=== PATIENT | female | born 1990 | race Hispanic/Latino ===

== ENCOUNTER 2019-05-09 07:50 | Emergency (ER) | payer OTHER, SELFPAY ==
[2019-05-09] MEDS ORDERED: MEPERIDINE HCL 25 MG/0.5 ML ONE (08:18)
[2019-05-09] MEDS ORDERED: ONDANSETRON 4 MG/2 ML VIAL ONE (08:18)
[2019-05-09] MEDS ORDERED: MAGNE/ALUM HYDROXD 30 ML UCUP ONE (08:18)
[2019-05-09] MEDS ORDERED: LIDOCAINE VISCOUS 2% SOLN 15 ML UDC ONE (08:19)
[2019-05-09 08:38] LABS: Absolute Lymphocytes (CBC) 2.5 K/uL (0.7-4.9); Basophils % 0.2 % (0-1.3); Hematocrit 37.4 % (36.0-45.0); Lymphocytes % 32.9 % (15.3-44.8); MPV 9.5 fL (7.6-11.3)
[2019-05-09 08:50] LABS: ALT/SGPT 26 U/L (12-78); AST/SGOT 14 U/L (15-37); Albumin 3.7 g/dL (3.4-5.0); Alkaline Phosphatase 74 U/L (45-117); BUN Blood Urea Nitrogen 12 mg/dL (7-18); Bicarbonate 23 mmol/L (21-32); Bilirubin Direct < 0.1 mg/dL (0-0.2); Bilirubin Total 0.4 mg/dL (0.2-1.0); Glucose Level 84 mg/dL (74-106); Lipase 118 U/L (73-393); Potassium 4.2 mmol/L (3.5-5.1); Protein, Total 7.9 g/dL (6.4-8.2); Sodium Level 138 mmol/L (136-145)
[2019-05-09 08:56] LABS: Urine RBC <5 /HPF (NONE SEEN)
[2019-05-09 08:57] LABS: Urine Bacteria <20 /HPF (<20); Urine Culture Reflex Order REFLEXED; Urine Mucus 2+ /HPF (NONE SEEN)
--- NOTE | 2019-05-09 09:11 | RAD REPORT ---
EXAM DESCRIPTION: US - Abdomen Exam Limited - 05/09/2019 8:41 am CLINICAL HISTORY: Abdominal pain. COMPARISON: None. FINDINGS: The gallbladder wall is not thickened. A gallstone is not seen. The biliary tree is normal caliber. Fatty liver IMPRESSION: Unremarkable gallbladder ultrasound. Fatty liver
[2019-05-09 09:56] LABS: Urine Blood TRACE (NEG); Urine Glucose NEGATIVE (NEG); Urine Protein NEGATIVE (NEG); Urine pH 5.5 (5.0-7.0)
--- NOTE | 2019-05-09 10:06 | EDPHYS ---
Physician Documentation [facility] Name: Sarahy Salinas Age: 29 yrs Sex: Female : 1990 Arrival Date: 05/09/2019 Time: 07:51 Bed 19 Private MD: ED Physician Rick Hall HPI: 05/09 08:16 This 29 yrs old Female presents to ER via Ambulatory with complaints of Pain rn All Over. 08:16 The patient presents with abdominal pain in the epigastric area, in the right upper rn quadrant. Onset: The symptoms/episode began/occurred yesterday. The symptoms radiate to the right flank. Associated signs and symptoms: Pertinent positives: nausea, Pertinent negatives: blood in stools, chest pain, constipation, fever, shortness of breath, vaginal discharge. The symptoms are described as achy, crampy, sharp. Modifying factors: The symptoms are alleviated by nothing, the symptoms are aggravated by touching the area. Severity of pain: At its worst the pain was mild in the emergency department the pain is unchanged. The patient has experienced similar episodes in the past. The patient has not recently seen a physician. Reports pain for several months, + upper abd pain and right flank pain, assoc with nausea, worse since yesterday, no fever, no diarrhea/constipation, no trauma. NO urinary symptoms.. 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 - Social history:: Smoking status: Patient/guardian denies using tobacco. - Ebola Screening: : No symptoms or risks identified at this time. - Family history:: not pertinent. - Hospitalizations: : No recent hospitalization is reported. ROS: 08:16 Constitutional: Negative for fever, chills, and weight loss, Eyes: Negative for injury, rn pain, redness, and discharge, Neck: Negative for injury, pain, and swelling, Cardiovascular: Negative for chest pain, palpitations, and edema, Respiratory: Negative for shortness of breath, cough, wheezing, and pleuritic chest pain, Abdomen/GI: + abd pain, nausea Back: Negative for injury MS/Extremity: Negative for injury and deformity, Skin: Negative for injury, rash, and discoloration, Neuro: Negative for headache, weakness, numbness, tingling, and seizure. Exam: 08:16 Constitutional: This is a well developed, well nourished patient who is awake, alert, rn and in no acute distress. Head/Face: Normocephalic, atraumatic. Eyes: Pupils equal round and reactive to light, extra-ocular motions intact. Lids and lashes normal. Conjunctiva and sclera are non-icteric and not injected. Cornea within normal limits. Periorbital areas with no swelling, redness, or edema. ENT: MMM Cardiovascular: Regular rate and rhythm. No pulse deficits. Respiratory: Lungs have equal breath sounds bilaterally, clear to auscultation. No increased work of breathing, no retractions or nasal flaring. Abdomen/GI: Soft, + RUQ and epigastric tenderness Back: No spinal tenderness. No costovertebral tenderness. Full range of motion. MS/ Extremity: Pulses equal, no cyanosis. Neurovascular intact. Full, normal range of motion. Equal circumference. Neuro: Awake and alert, GCS 15, oriented to person, place, time, and situation. Cranial nerves II-XII grossly intact. Motor strength 5/5 in all extremities. Sensory grossly intact. Cerebellar exam normal. Normal gait. Vital Signs: 07:55 BP 117 / 72; Pulse 64; Resp 18 S; Temp 98.6(O); Pulse Ox 100% on R/A; Weight 90.72 kg aa5 (R); Height 5 ft. 5 in. (165.10 cm) (R); Pain 8/10; 09:00 BP 118 / 68; Pulse 62; Resp 15; Pulse Ox 100% on R/A; Pain 2/10; hb 10:00 BP 122 / 70; Pulse 66; Resp 16; Pulse Ox 99% on R/A; hb 07:55 Body Mass Index 33.28 (90.72 kg, 165.10 cm) aa5 MDM: 07:55 Patient medically screened. rn 10:04 Differential diagnosis: cholecystitis, Cholelithiasis, gastritis, gastroesophageal rn reflux disease, pancreatitis, Peptic Ulcer Disease, urinary tract infection. Data reviewed: vital signs, nurses notes, lab test result(s), radiologic studies, ultrasound, and as a result, I will discharge patient. Counseling: I had a detailed discussion with the patient and/or guardian regarding: the historical points, exam findings, and any diagnostic results supporting the discharge/admit diagnosis, lab results, radiology results, the need for outpatient follow up, to return to the emergency department if symptoms worsen or persist or if there are any questions or concerns that arise at home. Response to treatment: the patient's symptoms have markedly improved after treatment, and as a result, I will discharge patient. Special discussion: I discussed with the patient/guardian in detail that at this point there is no indication for admission to the hospital. It is understood, however, that if the symptoms persist or worsen the patient needs to return immediately for re-evaluation. ED course: Pt with fatty liver, otherwise neg w/u, no urinary symptoms, recommend better diet, weight loss, and pcp f/u for fatty liver. . 05/09 07:59 Order name: Basic Metabolic Panel; Complete Time: 09:24 rn 05/09 07:59 Order name: CBC with Diff; Complete Time: 09: rn 05/09 07:59 Order name: Hepatic Function; Complete Time: 09:24 rn 05/09 07:59 Order name: Lipase; Complete Time: 09:24 rn 05/09 07:59 Order name: Urine Microscopic Only; Complete Time: 09: rn 05/09 08:26 Order name: Urine Dipstick--Ancillary (enter results); Complete Time: 10:04 bd 05/09 07:59 Order name: IV Saline Lock; Complete Time: 08: rn 05/09 07:59 Order name: Labs collected and sent; Complete Time: 08: rn 05/09 07:59 Order name: US Abdomen Limited; Complete Time: 09:24 rn 05/09 08:26 Order name: Urine --Ancillary (enter results); Complete Time: 10:04 bd 05/09 08:59 Order name: Urine Culture EDMS 05/09 07:59 Order name: Urine Test (obtain specimen); Complete Time: 08: rn 05/09 07:59 Order name: Urine Dipstick-Ancillary (obtain specimen); Complete Time: 08:26 rn Administered Medications: 08:25 Drug: GI Cocktail without - (Maalox Suspension 30 ml, Lidocaine Liquid 2 % 15 hb ml) Route: PO; 09:15 Follow up: Response: No adverse reaction hb 08:25 Drug: Zofran 4 mg Route: IVP; Site: right forearm; hb 09:15 Follow up: Response: No adverse reaction hb 08:26 Drug: Demerol 25 mg {Note: RASS 0.} Route: IVP; Site: right forearm; hb 10:32 Follow up: Response: No adverse reaction; Pain is decreased; RASS: Alert and Calm (0) hb Disposition: 05/09/19 10:05 Discharged to Home. Impression: Fatty (change of) liver, not elsewhere classified. - Condition is Stable. - Discharge Instructions: Nonalcoholic Fatty Liver Disease Diet. - Medication Reconciliation Form, Thank You Letter, Antibiotic Education, Prescription Opioid Use, Work release form form. - Follow up: Private Physician; When: As needed; Reason: Recheck today's complaints, Re-evaluation by your physician. - Problem is an ongoing problem. - Symptoms have improved. Signatures: Dispatcher [employer] EDMS Rick Hall MD MD rn Calderon, Audri, RN RN 5 Naheed Moreau RN RN Corrections: (The following items were deleted from the chart) 10:29 10:05 05/09/2019 10:05 Discharged to Home. Impression: Fatty (change of) liver, not hb elsewhere classified. Condition is Stable. Forms are Medication Reconciliation Form, Thank You Letter, Antibiotic Education, Prescription Opioid Use. Follow up: Private Physician; When: As needed; Reason: Recheck today's complaints, Re-evaluation by your physician. Problem is an ongoing problem. Symptoms have improved. rn
--- NOTE | 2019-05-09 10:06 | ER ---
Nurse's Notes [facility] Name: Sarahy Salinas Age: 29 yrs Sex: Female : 1990 Arrival Date: 05/09/2019 Time: 07:51 Bed 19 Private MD: Diagnosis: Fatty (change of) liver, not elsewhere classified Presentation: 05/09 07:54 Presenting complaint: Patient states: RUQ radiating to back that began 6 months ago. Pt aa5 states "I came here a few months ago and they said it was fatty liver". 07:54 Transition of care: patient was not received from another setting of care. Onset of aa5 symptoms was 2018. Risk Assessment: Do you want to hurt yourself or someone else? Patient reports no desire to harm self or others. Initial Sepsis Screen: Does the patient meet any 2 criteria? No. Patient's initial sepsis screen is negative. Does the patient have a suspected source of infection? No. Patient's initial sepsis screen is negative. Care prior to arrival: None. 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 - Social history:: Smoking status: Patient/guardian denies using tobacco. - Ebola Screening: : No symptoms or risks identified at this time. - Family history:: not pertinent. - Hospitalizations: : No recent hospitalization is reported. Screenin:00 Abuse screen: Denies threats or abuse. Denies injuries from another. Nutritional hb screening: No deficits noted. Tuberculosis screening: No symptoms or risk factors identified. Fall Risk None identified. Assessment: 08:10 General: Appears in no apparent distress. Behavior is calm, cooperative, appropriate hb for age. Pain: Pain currently is 8 out of 10 on a pain scale. Neuro: Level of Consciousness is awake, alert, obeys commands, Oriented to person, place, time, situation. Cardiovascular: Heart tones S1 S2 present Capillary refill < 3 seconds Patient's skin is warm and dry. Respiratory: Airway is patent Respiratory effort is even, unlabored, Respiratory pattern is regular, symmetrical, Breath sounds are clear bilaterally. GI: Abdomen is flat, Bowel sounds present X 4 quads. Abd is soft and non tender X 4 quads. Reports upper abdominal pain. : No signs and/or symptoms were reported regarding the genitourinary system. EENT: No signs and/or symptoms were reported regarding the EENT system. Derm: Skin is intact, is healthy with good turgor, Skin is pink, warm \\T\\ dry. Musculoskeletal: No signs and/or symptoms reported regarding the musculoskeletal system. 08:31 Reassessment: PT TO US. hb 09:00 Reassessment: Patient appears in no apparent distress at this time. Patient and/or hb family updated on plan of care and expected duration. Pain level reassessed. Patient is alert, oriented x 3, equal unlabored respirations, skin warm/dry/pink. 10:00 Reassessment: Patient appears in no apparent distress at this time. Patient and/or hb family updated on plan of care and expected duration. Pain level reassessed. Patient is alert, oriented x 3, equal unlabored respirations, skin warm/dry/pink. Vital Signs: 07:55 BP 117 / 72; Pulse 64; Resp 18 S; Temp 98.6(O); Pulse Ox 100% on R/A; Weight 90.72 kg aa5 (R); Height 5 ft. 5 in. (165.10 cm) (R); Pain 8/10; 09:00 BP 118 / 68; Pulse 62; Resp 15; Pulse Ox 100% on R/A; Pain 2/10; hb 10:00 BP 122 / 70; Pulse 66; Resp 16; Pulse Ox 99% on R/A; hb 07:55 Body Mass Index 33.28 (90.72 kg, 165.10 cm) aa5 ED Course: 07:51 Patient arrived in ED. rg4 07:54 Arm band placed on Patient placed in an exam room, on a stretcher. aa5 07:55 Rick Hall MD is Attending Physician. rn 08:00 Patient has correct armband on for positive identification. Placed in gown. Bed in low hb position. Call light in reach. Side rails up X 1. 08:07 Triage completed. aa5 08:15 Urine collected: clean catch specimen, clear. 3 08:16 Naheed Moreau, RN is Primary Nurse. hb 08:17 Initial lab(s) drawn, by me, sent to lab. Inserted saline lock: 22 gauge in right dh3 forearm, using aseptic technique. Blood collected. 08:44 Abdomen Limited In Process Unspecified. EDMS 10:16 No provider procedures requiring assistance completed. IV discontinued, intact, hb bleeding controlled, No redness/swelling at site. Pressure dressing applied. Administered Medications: 08:25 Drug: GI Cocktail without - (Maalox Suspension 30 ml, Lidocaine Liquid 2 % 15 hb ml) Route: PO; 09:15 Follow up: Response: No adverse reaction hb 08:25 Drug: Zofran 4 mg Route: IVP; Site: right forearm; hb 09:15 Follow up: Response: No adverse reaction hb 08:26 Drug: Demerol 25 mg {Note: RASS 0.} Route: IVP; Site: right forearm; hb 10:32 Follow up: Response: No adverse reaction; Pain is decreased; RASS: Alert and Calm (0) hb Outcome: 10:05 Discharge ordered by . rn 10:16 Discharged to home ambulatory. hb 10:16 Condition: stable 10:16 Discharge instructions given to patient, Instructed on discharge instructions, follow up and referral plans. medication usage, Demonstrated understanding of instructions, follow-up care, medications. 10:29 Patient left the ED. hb Signatures: Dispatcher [employer] EDMS Rick Hall MD MD rn Calderon, Audri RN RN aa5 Naheed Moreau, RN Sarahy Leonardo [facility] Callie Banda 3
[2019-05-09 10:34] VITALS: TEMP 98.6
[2019-05-09 10:37] VITALS: BP 122/70; O2SAT 99
== END 2019-05-09 10:29 | disposition home or self-care (01) ==
LOC: ER 07:50
DX: K76.0 Fatty (change of) liver, not elsewhere classified (principal)
CPT/HCPCS: 36415; 76705; 80048; 80076; 81003; 81015; 81025; 83690; 85025; 87086; 87088; 96374; 96375; 99284; J2175; J2405

== ENCOUNTER 2021-07-25 19:14 | Emergency (ER) | payer OTHER, SELFPAY ==
--- OUTSIDE RECORDS SUMMARY | 2021-07-25 19:19 | XMS REPORT | Continuity of Care Document ---
:1990 Author Organization [facility] t Address [address] [place] [address] Care Team Providers Name Role Phone PCP, DOES NOT HAVE A Primary Care Physician Unavailable Sumi Gibbs Attending Clinician SUMI LOFTON Attending Clinician Unavailable SUMI LOFTON Admitting Clinician Unavailable Payers Payer Name Policy Type Policy Number Effective Date Expiration Date S ource Advance Directives Directive Decision Effective Termination Comments Source Date Date Healthcare Agents on N/A [facility] FileNameRelationshipHealthcare [facility] Agent Medical RelationshipCommunicationCorewell Health Blodgett Hospitala Branch [facility] healthcare [phone] (Mobile) Problems Condition Condition Condition Status Onset Resolution Last Treating Co mments Source Name Details Category Date Date Treatment Clinician Date Pain Pain Disease Active Univers pelvic pelvic - ity of 00:00: [place] 00 Medical Branch History of History of Disease Active Overview : Univers PCOS PCOS 09-05 Was on ity of 00:00: metformin [place] 00 stopped Medical in Branch 09/2016 Allergies, Adverse Reactions, Alerts Allergy Allergy Status Severity Reaction(s) Onset Inactive Treating Comm ents Source Name Type Date Date Clinician NO KNOWN Drug Active Univers ALLERGIE Class ity of S [place] Medical [place] Social History Social Habit Start Date Stop Date Quantity Comments Source Sex Assigned At [facility] Medical Branch Exposure to Not sure [facility] SARS-CoV-2 (event) Medica l Branch Alcohol intake 2018-03-15 2018-03-15 [facility] 00:00:00 00:00:00 Medical Branch Smoking Status Start Date Stop Date Source Never smoker [facility] Medications Ordered Filled Start Stop Current Ordering Indication Dosage Frequency Signature Comments Components Source Medication Medication Date Date Medication? Clinician (SIG) Name Name iohexol 2019- No 120mL 120 mL, Unive rs (OMNIPAQUE 02-09 Intravenou it y of 350 21:30: 21:11 s, ONCE, 1 [place] BULK-100 00 :00 dose, Mon Medica l mL) 02/10/20 at Branch injection 1630, 120 mL Routine morpHINE 2019- No 4mg 4 mg, Slow Un trupti injection 4 02-09 IV Push, ity of mg 20:45: 20:15 ONCE, 1 [place] 00 :00 dose, Mon Medical 02/10/20 at Branch 1545, STAT ondansetron 2019- No 4mg 4 mg, Slow Univers (ZOFRAN 02-09 IV Push, ity of (PF)) 20:45: 20:15 ONCE, 1 [place] injection 4 00 :00 dose, Mon Med ical mg 02/10/20 at Branch 1545, [place] NaCl 0.9% 2019- No 1000mL at 999 Uni vers (NS) bolus 02-09 mL/hr, ity of infusion 20:45: 21:00 1,000 mL, Mehul as 1,000 mL 00 :00 IV Medical Infusion, [place] ONCE, 1 dose, [facility] 02/10/20 at 1545, STAT levoFLOXaci 2017-0 Yes 500mg Take 1 Uni vers n 9-14 tablet by ity of (LEVAQUIN) 00:00: mouth [place] 500 mg 00 every 24 Medical tablet (twenty-fo Branch ur) hours. ketorolac 2018-0 Yes 10mg Take 1 Univer s 10 mg 9-14 tablet by ity of tablet 00:00: mouth [place] 00 every 6 Medical (six) Branch hours as needed for Pain (scale 7-10). acetaminoph 2018-0 Yes 1{tbl} Take 1 Un trupti en-codeine 9-14 tablet by ity of (TYLENOL-CO 00:00: mouth [place] DEINE #3) 00 every 4 Medical 300-30 mg (four) Branch tablet hours as needed for Pain (scale 7-10). ondansetron 2018-0 Yes 4mg Take 1 Univ ers (ZOFRAN) 4 9-14 tablet by ity of mg tablet 00:00: mouth [place] 00 every 8 Medical (eight) Branch hours as needed for Nausea and Vomiting (N/V). tamsulosin 2018-0 Yes .4mg Take 1 Unive rs 0.4 mg 24 9-14 capsule by ity of hr capsule 00:00: mouth at Meh[place] as 00 bedtime. Medical Branch phenazopyri 2017-0 Yes 200mg Take 1 Uni vers dine 200 mg 7-12 tablet by ity of tablet 00:00: mouth 3 [place] 00 (three) Medical times Branch daily. proMETHazin Yes 25mg Take 1 Univ ers e 25 mg 7-12 tablet by ity of tablet 00:00: mouth [place] 00 every 6 Medical (six) Branch hours as needed for Nausea and Vomiting (N/V). ondansetron 2016-09 Yes 4mg Take 1 Univ ers (ZOFRAN 0-23 tablet by ity of ODT) 4 mg 00:00: mouth [place] disintegrat 00 every 8 Medic al ing tablet (eight) Branch hours as needed for Nausea and Vomiting (N/V). ibuprofen 2016-09 Yes 600mg Take 1 Unive rs 600 mg 0-23 tablet by ity of tablet 00:00: mouth [place] 00 every 6 Medical (six) Branch hours as needed for Pain (scale 4-6). Vital Signs Vital Name Observation Time Observation Value Comments Source Systolic blood 2020-02-10 23:00:00 121 mm[Hg] Univer sity of pressure [facility] Diastolic blood 2020-02-10 23:00:00 78 mm[Hg] [facility] Heart rate 2020-02-10 23:00:00 62 /min [facility] Respiratory rate 2020-02-10 23:00:00 18 /min [facility] Oxygen saturation in 2020-02-10 23:00:00 96 /min [facility] Arterial blood by [facility] Pulse oximetry Branch Body temperature 2020-02-10 17:14:00 36.22 Cha [facility] Body weight 2020-02-10 17:14:00 99.791 kg [facility] BMI 2020-02-10 17:14:00 42.97 kg/m2 [facility] Procedures Procedure Date / Time Performing Clinician Source Performed US OVARY TORSION 2020-02-10 22:53:00 Teagan Lofton [facility] CT ABDOMEN PELVIS W 2020-02-10 21:15:01 Teagan Lofton [facility] CONTRAST [facility] US GALL BLADDER 2020-02-10 20:08:22 Teagan Lofton [facility] LIPASE 2020-02-10 19:48:00 Teagan Lofton [facility] MAGNESIUM 2020-02-10 19:48:00 Teagan Lofton Sumi [facility] COMP. METABOLIC PANEL 2020-02-10 19:48:00 Teagan Lofton [facility] ([id number]) [facility] CBC WITH DIFFERENTIAL 2020-02-10 19:48:00 Teagan Lofton [facility] URINALYSIS 2020-02-10 17:24:00 Singer Clifford [facility] POCT TEST 2020-02-10 17:24:00 Clifford Maza [facility] CONSENT/REFUSAL FOR 2020-02-10 17:12:30 Doctor Unassigned, No Un [facility] DIAGNOSIS AND TREATMENT Name Medical Branch Encounters Start End Encounter Admission Attending Care Care Encounter Source Date/Time Date/Time Type Type Clinicians Facility Department ID 2020-02-10 2020-02-10 Emergency Teagan Lofton [facility] [id number] Univers 13:43:29 18:40:00 Sumi [place] [id number] i [facility] [id number] [facility] [id number] [facility] 084 Branch 2020-02-10 2020-02-10 Emergency X Teagan LOFTON [facility] ERT [id number] Univers 13:43:29 18:40:00 [facility] Results Test Test Test Results Result Source Description Time Comments Comments US OVARY 2020-02 Low suspicion for ovarian University TORSION - torsion. Thickened endometrium of [place] 23:35:2 measuring up to 1.7 cm. M edical 3 Endometrium is Branch veryheterogeneous with a 2.1 x 2.0 x 1.5 cm hypoechoic region along theanterior endometrial cavity. Appearance is not typical for a polyp and noabnormal flow is seen corresponding to this region. Correlate with patientmenstrual cycle. Recommend short-term follow-up with [facility]PER[facility]OR [facility] consultation. Anterior intramural leiomyoma. Preliminary Report Dictated by Resident: Randal Negro MD., have reviewed this study and agree with theabove report.EXAM: PELVIC ULTRASOUND, TRANSABDOMINAL AND TRANSVAGINAL HISTORY: RLQ pain, r/o torsion, LMP 01/22/2020 COMPARISON: None FINDINGS: UTERUS: The uterus measures 8.8 x 5.3 x 6.3 cm. The endometrium is heterogeneous and measures 17 mm in thickness. There anselmo 2.5 x 0.9 cm hypoechoic endometrial lesion is seen. A 2.1 x 1.9 x 1.5 cm. 2.1 x 2.0 x 1.5 cm hypoechoic anterior fundal intramural lesion withposterior shadowing likely represents an leiomyoma (image 50). A 0.6 cmnabothian cyst is seen. OVARIES: The right ovary measures 2.4 x 3.1 x 2.3 cm (8.6 mL). The leftovary measures 3.4 x 2.0 x 2.2 cm (7.6 mL). Both ovaries demonstrate normalvenous and arterial blood flow. Trace free fluid. [facility], Radiant Results Inft User - 02/10/2020 6:36 PM CDTEXAM: PELVIC ULTRASOUND, TRANSABDOMINAL AND TRANSVAGINALHISTORY: RLQ pain, r/o torsion, LMP 01/22/2020COMPARISON: NoneFINDINGS: UTERUS: The uterus measures 8.8 x 5.3 x 6.3 cm.The endometrium is heterogeneous and measures 17 mm in thickness. There anselmo 2.5 x 0.9 cm hypoechoic endometrial lesion is seen. A 2.1 x 1.9 x 1.5 cm.2.1 x 2.0 x 1.5 cm hypoechoic anterior fundal intramural lesion withposterior shadowing likely represents an leiomyoma (image 50). A 0.6 cmnabothian cyst is seen.OVARIES: The right ovary measures 2.4 x 3.1 x 2.3 cm (8.6 mL). The leftovary measures 3.4 x 2.0 x 2.2 cm (7.6 mL). Both ovaries demonstrate normalvenous and arterial blood flow.Trace free fluid.IMPRESSIONLow suspicion for ovarian torsion.Thickened endometrium measuring up to 1.7 cm. Endometrium is veryheterogeneous with a 2.1 x 2.0 x 1.5 cm hypoechoic region along theanterior endometrial cavity. Appearance is not typical for a polyp and noabnormal flow is seen corresponding to this region. Correlate with patientmenstrual cycle. Recommend short-term follow-up with [facility] consultation. Anterior intramural leiomyoma.Preliminary Report Dictated by Resident: Randal Carlson MD., have reviewed this study and agree with theabove report. CT ABDOMEN 2020-02 No acute intra-abdominal University PELVIS W -08 findings. Preliminary Report of [place] CONTRAST 22:00:2 Dictated by Resident: Heri Lu Cheyenne Curran ?MD Silvio., have reviewed this study and agree with the abovereport.EXAM: CT ABDOMEN AND PELVIS WITH CONTRAST HISTORY: 29-year-old female complaining of lower abdominal pain. COMPARISON: CT of the abdomen dated 05/18/2018. TECHNIQUE AND FINDINGS: Contiguous axial imaging from the level of the lungbases through the pubic symphysis was performed after the uncomplicatedadministration of 120 cc of intravenous Omnipaque contrast. Coronal andsagittal reconstructions were obtained. ?Auto mA and/or iterativereconstruction were used to reduce radiation dose. FINDINGS: LOWER THORAX: The lungs bases are clear. ?No cardiomegaly. LIVER: The liver is enlarged at 19.1 cm with diffusely hypoattenuatingparenchyma. ? Normal contour. GALLBLADDER AND BILIARY TREE: No gallbladder wall thickening. No biliarydilatation. PANCREAS: No ductal dilation or masses. SPLEEN: No splenomegaly. ADRENAL GLANDS: No adrenal nodules. KIDNEYS: No hydronephrosis, stones, or masses. PELVIS/BLADDER: Unremarkable. GI TRACT: No dilation or wall thickening. The appendix is not visualized.However, there is no inflammatory changes in the right lower quadrant. VESSELS: The main hepatic artery originates from the SMA. LYMPH NODES: No lymphadenopathy. PERITONEUM AND RETROPERITONEUM: No free air or fluid. BONES AND SOFT TISSUES: No suspicious lytic or sclerotic bony lesions. [facility], Radiant Results Inft User - 02/10/2020 5:01 PM CDTEXAM: CT ABDOMEN AND PELVIS WITH CONTRASTHISTORY: 29-year-old female complaining of lower abdominal pain.COMPARISON: CT of the abdomen dated 05/18/2018.TECHNIQUE AND FINDINGS: Contiguous axial imaging from the level of the lungbases through the pubic symphysis was performed after the uncomplicatedadministration of 120 cc of intravenous Omnipaque contrast. Coronal andsagittal reconstructions were obtained. Auto mA and/or iterativereconstruction were used to reduce radiation dose.FINDINGS:LOWER THORAX: The lungs bases are clear. No cardiomegaly.LIVER: The liver is enlarged at 19.1 cm with diffusely hypoattenuatingparenchyma. Normal contour.GALLBLADDER AND BILIARY TREE: No gallbladder wall thickening. No biliarydilatation.PANCREAS: No ductal dilation or masses.SPLEEN: No splenomegaly.ADRENAL GLANDS: No adrenal nodules.KIDNEYS: No hydronephrosis, stones, or masses.PELVIS/BLADDER: Unremarkable.GI TRACT: No dilation or wall thickening. The appendix is not visualized.However, there is no inflammatory changes in the right lower quadrant.VESSELS: The main hepatic artery originates from the SMA.LYMPH NODES: No lymphadenopathy.PERITONEUM AND RETROPERITONEUM: No free air or fluid.BONES AND SOFT TISSUES: No suspicious lytic or sclerotic bony lesions.IMPRESSIONNo acute intra-abdominal findings.Preliminary Report Dictated by Resident: Heri Nunn, Cheyenne Anguiano MD., have reviewed this study and agree with the abovereport. COMP. METABOLIC PANEL (65273) 2020-02-10 20:26:00 Test Item Value Reference Range Interpretation Comme nts NA (test code = 8631676603) 137 mmol/L 135-145 K (test code = 0668009946) 4.6 mmol/L 3.5-5 CL (test code = 6355329663) 107 mmol/L 98-108 CO2 TOTAL (test code = 5075166468) 21 mmol/L 23-31 L AGAP (test code = 6634531988) 2-16 BUN (test code = 5814624925) 8 mg/dL 7-23 GLUCOSE (test code = 1138196856) 81 mg/dL 70-110 CREATININE (test code = 0.50 mg/dL 0.5-1.04 7340351411) TOTAL BILI (test code = 0.4 mg/dL 0.1-1.9 9006797445) CALCIUM (test code = 7598029459) 9.1 mg/dL 8.6-10.6 T PROTEIN (test code = 6004288030) 8.1 g/dL 6.3-8.2 ALBUMIN (test code = 7990948093) 4.6 g/dL 3.5-5 ALK PHOS (test code = 8735356985) 67 U/L 34-122 ALTv (test code = 1742-6) 25 U/L 5-35 AST(SGOT) (test code = 6928475588) 27 U/L 13-40 eGFR Calculation (Non- mL/min/1.73m2 [place]) (test code = 4976308420) eGFR Calculation ( mL/min/1.73m2 [place]) (test code = 8198052132) TERESA (test code = TERESA) Association of Glomerular Filtration Rate (GFR) and Staging of Kidney Disease* + +-------- + ------+| GFR (mL/min/1.73 m2) ?| With Kidney Damage ?| ?Without Kidney Damage+ +-- + +| ?>90 ?| ?Stage one ?| ? Normal ?+ +------- + -------+| ?60-89 ?| ?Stage two ?| ? Decreased GFR ? + +-------- + ------+| ?30-59 ?| ?Stage three ?| ? Stage three ? + +-------- + ------+| ?15-29 ?| ?Stage four ? | ? Stage four ?+ +------- + -------+| ?<15 (or dialysis) ? ?| ?Stage five ? | ? Stage five ?+ +------- + -------+ *Each stage assumes the associated GFR level has been in effect for at least three months. ?Stages 1 to 5, with or without kidney disease, indicate chronic kidney disease. Notes: Determination of stages one and two (with eGFR >59mL/min/1.73 m2) requires estimation of kidney damage for at least three months as defined by structural or functional abnormalities of the kidney, manifested by either:Pathological abnormalities or Markers of kidney damage (including abnormalities in the composition of the blood or urine or abnormalities in imaging tests). Lab Interpretation (test code = Abnormal 94732-7) [facility] 20[facility]26:00 Test Item Value Reference Range Interpretation Comments LIPASE (test code = 0431850725) 55 U/L 0-220 Lab Interpretation (test code = Normal 48768-6) [facility] CenterMAGNESIUM2020-06-08 20:26:00 Test Item Value Reference Range Interpretation Comments MAGNESIUM (test code = 8098662676) 2.0 mg/dL 1.7-2.4 Lab Interpretation (test code = Normal 27741-4) [facility] CenterUS GALL [id number] 20:19:18 Unremarkable sonographic appearance of the gallbladder. No sonographicevidence of cholecystitis. Hepatic steatosis Preliminary Report Dictated by Resident: Ortiz Bland MD., have reviewed this study and agree with the abovereport.EXAM: US GALL BLADDER HISTORY: 29 years-old Female with ruq pain . TECHNIQUE: Limited abdominal ultrasound performed focused on thegallbladder. Main portal vein was evaluated with color Doppler imaging.Ambulance Dispatcher images were obtained for the record. COMPARISON: CT 05/18/2018 FINDINGS: LIVER: Limited evaluation of the liver on this focused gallbladderexamination.. Length: 12.9 cm in the craniocaudal dimensionParenchyma: Mild diffuse increase hepatic echogenicity. No focal lesion isdetectedPortal vein: Hepatopetal flow present in the main portal vein.MPV diameter: 1.1 cm in AP dimension GALLBLADDER:No cholelithiasisNormal gallbladder wall thickness, 3 cm.Negative Taylor's sign.. BILE DUCTS:No intra- or extrahepatic biliary dilatation..Common Duct diameter: 4.5 cm. PANCREAS: Limited visualization due to shadowing from bowel gas.. OTHER: None. [facility], Radiant Results Inft User - 02/10/2020 3:20 PM CDTEXAM: US GALL BLADDERHISTORY: 29 years-old Female with ruq pain .TECHNIQUE: Limited abdominal ultrasound performed focused on thegallbladder. Main portal vein was evaluated with color Doppler imaging.Ambulance Dispatcher images were obtained for the record .COMPARISON: CT 05/18/2018FINDINGS: LIVER: Limited evaluation of the liver on this focused gallbladderexamination.. Length: 12.9 cm in the craniocaudal dimensionParenchyma: Mild diffuse increase hepaticechogenicity. No focal lesion isdetectedPortal vein: Hepatopetal flow present in the main portal vein.MPV diameter: 1.1 cm in AP dimensionGALLBLADDER:No cholelithiasisNormal gallbladder wall thickness,3 cm.Negative Taylor's sign..BILE DUCTS:No intra- or extrahepatic biliary dilatation..Common Duct diameter: 4.5 cm.PANCREAS: Limited visualization due to shadowing from bowel gas..OTHER: None. IMPRESSIO NUnremarkable sonographic appearance of the gallbladder. No sonographicevidence of cholecystitis.Hepatic steatosisPreliminary Report Dictated by Resident: Ortiz Soto MD., have reviewed this study and agree with the abovereport.[facility] WITH [id number] 20:01:00 Test Item Value Reference Range Interpretation Comments WBC (test code = See_Comment [Automated 2290-2) message] The sy stem which generated this result transmitted reference range : 4.30 - 11.10 10*3/?L. The reference range was not used to interpret this result as normal/abnormal . RBC (test code = See_Comment [Automated 649-8) message] The sy stem which generated this result transmitted reference range : 3.93 - 5.25 10*6/?L. The reference range was not used to interpret this result as normal/abnormal . HGB (test code = 11.9 g/dL 11.6-15 718-7) HCT (test code = 38.1 % 35.7-45.2 4544-3) MCV (test code = 86.8 fL 80.6-95.5 787-2) MCH (test code = 27.1 pg 25.9-32.8 785-6) MCHC (test code = 31.2 g/dL 31.6-35.1 L 786-4) RDW-SD (test code = 47.4 fL 39-49.9 61789-5) RDW-CV (test code = 14.9 % 12-15.5 788-0) PLT (test code = See_Comment [Automated 757-3) message] The sy stem which generated this result transmitted reference range : 166 - 358 10*3/ ?L. The reference r mackenzie was not used to interpret this result as normal/abnormal . MPV (test code = 11.0 fL 9.5-12.9 20717-1) NRBC/100 WBC (test See_Comment [Automat ed code = 7041218797) message] The system which generated this result transmitted reference range : 0.0 - 10.0 /100 WBCs. The refer ence range was not u sed to interpret th is result as normal/abnormal . NRBC x10^3 (test code <0.01 See_Comment [Auto mated = 7739877741) message] The s ystem which generated this result transmitted reference range : 10*3/?L. The reference range was not used to interpret this result as normal/abnormal . GRAN MAT (NEUT) % 52.3 % (test code = 770-8) IMM GRAN % (test code 0.40 % = 9472305048) LYMPH % (test code = 39.1 % 736-9) MONO % (test code = 6.9 % 5905-5) EOS % (test code = 1.0 % 713-8) BASO % (test code = 0.3 % 706-2) GRAN MAT x10^3(ANC) 4.05 10*3/uL 1.88-7.09 (test code = 7884765148) IMM GRAN x10^3 (test 0.03 10*3/uL 0-0.06 code = 2229928886) LYMPH x10^3 (test code 3.02 10*3/uL 1.32-3.29 = 731-0) MONO x10^3 (test code 0.53 10*3/uL 0.33-0.92 = 742-7) EOS x10^3 (test code = 0.08 10*3/uL 0.03-0.39 711-2) BASO x10^3 (test code <0.03 0.01-0.07 = 704-7) Lab Interpretation Abnormal (test code = 52148-3) [facility] CenterUrinalysis2020-06-08 17:55:00 Test Item Value Reference Range Interpretation Comments APPEARANCE (test code = Hazy Clear A 7869353204) COLOR (test code = Yellow Yellow 2386163251) PH (test code = 4.8-8.0 9690183591) SP GRAVITY (test code = 1.003-1.030 8589973637) GLU U QUAL (test code = Normal Normal 8357336698) BLOOD (test code = 1+ Negative A 6442308697) KETONES (test code = Negative Negative 5110127095) PROTEIN (test code = Negative Negative 2887-8) UROBILIN (test code = Normal Normal 4196609207) BILIRUBIN (test code = Negative Negative 9805015422) NITRITE (test code = Negative Negative 9635124769) LEUK EUGENE (test code = Negative Negative 8697387557) RBC/HPF (test code = See_Comment [Autom ated message] 3653127497) The system [employer] generated this result transmitted ref erence range: 0 - 3 HP F. The reference range was not used to int erpret this result as normal/abnormal . WBC/HPF (test code = See_Comment [Autom ated message] 4523234145) The system [employer] generated this result transmitted ref erence range: 0 - 5 HP F. The reference range was not used to int erpret this result as normal/abnormal . BACTERIA (test code = Few Negative A 6757179849) MUCOUS (test code = Slight Negative LPF A 3754775727) SQ EPITH (test code = HPF 2200504460) Lab Interpretation (test Abnormal code = 75175-3) [facility] CenterPOCT [id number] 17:24:00 Test Item Value Reference Range Interpretation Comments POCT PREG (test code = 1605) negative On board controls acceptable with C present Line (test code = 3574) Lab Interpretation (test code = Normal 87626-6) [facility]"
[2021-07-25 20:46] LABS: Urine Blood Negative (Negative); Urine Glucose Negative (Negative); Urine Protein Negative (Negative); Urine Specific Gravity 1.025 (1.005-1.030)
[2021-07-25 21:23] LABS: Urine Specific Gravity/Preg 1.025 (1.005-1.030)
[2021-07-25 21:48] LABS: Basophils % 0.4 % (0-1.3); Hematocrit 33.8 % (36.0-45.0); Lymphocytes % 39.8 % (15.3-44.8); RBC Red Blood Cell Count 4.12 M/uL (3.86-4.86)
[2021-07-25] MEDS ORDERED: ACETAMINOPHEN 325 MG TABLET ONE (22:29)
[2021-07-25 23:16] LABS: BUN Blood Urea Nitrogen 11 mg/dL (7-18); Bicarbonate 23 mmol/L (21-32); Glucose Level 88 mg/dL (74-106); Potassium 4.1 mmol/L (3.5-5.1); Sodium Level 140 mmol/L (136-145)
[2021-07-25 23:35] LABS: HCG, Quantitative 8565 mIU/mL (1-3)
--- NOTE | 2021-07-26 00:27 | EDPHYS ---
Physician Documentation [facility] Name: Sarahy Salinas Age: 31 yrs Sex: Female : 1990 Arrival Date: 07/25/2021 Time: 19:17 Bed 5 Private MD: ED Physician Everett Russell HPI: 07/25 20:46 This 31 yrs old Female presents to ER via Ambulatory with complaints of jmm Abdominal Pain, Vaginal Bleeding, + Preg <12wks, WEEKS OF UNKNOWN. 20:46 The patient presents with abdominal pain in the lower abdomen. Onset: The jmm symptoms/episode began/occurred gradually, today. The symptoms do not radiate. Associated signs and symptoms: Pertinent negatives: fever, vomiting. The symptoms are described as achy. This is a 31-year-old female with no chronic medical conditions presents emergency department with complaints of lower abdominal pain. Pain radiates to the lower back. Denies vomiting or diarrhea., Denies vaginal discharge or vaginal bleeding.. 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 - Social history:: Smoking status: Patient denies any tobacco usage or history of. ROS: 20:46 Constitutional: Negative for fever, chills, and weight loss, Cardiovascular: Negative jmm for chest pain, palpitations, and edema, Respiratory: Negative for shortness of breath, cough, wheezing, and pleuritic chest pain. 20:46 Abdomen/GI: Positive for abdominal pain. 20:46 All other systems are negative. Exam: 20:46 Constitutional: This is a well developed, well nourished patient who is awake, alert, jmm and in no acute distress. Head/Face: atraumatic. Eyes: EOMI, no conjunctival erythema appreciated ENT: Moist Mucus Membranes Neck: Trachea midline, Supple Chest/axilla: Normal chest wall appearance and motion. Cardiovascular: Regular rate and rhythm. No edema appreciated Respiratory: Normal respirations, no respiratory distress appreciated 20:46 Back: Normal ROM Skin: General appearance color normal MS/ Extremity: Moves all extremities, no obvious deformities appreciated, no edema noted to the lower extremities Neuro: Awake and alert, normal gait Psych: Behavior is normal, Mood is normal, Patient is cooperative and pleasant 20:46 Abdomen/GI: Inspection: abdomen appears normal, Bowel sounds: normal, Palpation: soft, mild abdominal tenderness, in the suprapubic area. Vital Signs: 19:46 BP 125 / 65; Pulse 94; Resp 16; Temp 97.5; Pulse Ox 100% ; Weight 86.18 kg; Height 5 vg1 ft. 5 in. (165.10 cm); Pain 8/10; 21:30 BP 109 / 61; Pulse 64; Resp 18; Pulse Ox 100% on R/A; tw5 19:46 Body Mass Index 31.62 (86.18 kg, 165.10 cm) vg1 MDM: 20:[address] [facility] 07/26 00:25 Data reviewed: vital signs, nurses notes. Counseling: I had a detailed discussion with [facility] the patient and/or guardian regarding: the historical points, exam findings, and any diagnostic results supporting the discharge/admit diagnosis, lab results, radiology results, the need for outpatient follow up, to return to the emergency department if symptoms worsen or persist or if there are any questions or concerns that arise at home. ED course: Patient is alert and nontoxic in appearance in the ED. Ultrasound is IUP . Patient advised follow-up PCP and otherwise given strict return precautions. Patient understood agrees plan of care.. 07/25 20:46 Order name: Urine Dipstick-Ancillary; Complete Time: 20:57 [facility] 07/25 20:46 Order name: Urine --Ancillary (enter results) [facility] 07/25 20:47 Order name: Urine --Ancillary; Complete Time: 21:41 [facility] 07/25 21:00 Order name: Abo/rh Typing [facility] 07/25 21:00 Order name: Basic Metabolic Panel; Complete Time: 23:37 [facility] 07/25 21:00 Order name: CBC with Diff; Complete Time: 21:54 [facility] 07/25 21:00 Order name: Quantitative Hcg; Complete Time: 23:37 [facility] 07/25 21:00 Order name: IV Saline Lock; Complete Time: 21:18 [facility] 07/25 21:00 Order name: Labs collected and sent; Complete Time: 21:18 [facility] 07/25 21:00 Order name: NPO; Complete Time: 21:18 [facility] 07/25 21:00 Order name: Urine Dipstick-Ancillary (obtain specimen); Complete Time: 21:18 [facility] 07/25 21:00 Order name: US 1st Trimest Single 1st Fetus [facility] 07/25 21:01 Order name: ABO/RH typing; Complete Time: 22:50 [facility] 07/25 21:45 Order name: Labs - recollect needed: green top needed; Complete Time: 22:39 mw2 Administered Medications: 07/25 22:37 Drug: Tylenol 650 mg Route: PO; df1 Disposition: 07/26 06:06 Co-signature as Attending Physician, Everett Russell MD. mh7 Disposition Summary: 07/26/21 00:26 Discharge Ordered Location: Home [facility] Condition: Stable jm Diagnosis - Pelvic and perineal pain [facility] Followup: [facility] - With: Private Physician - When: 2 - 3 days - Reason: Recheck today's complaints, Continuance of care, Re-evaluation by your physician Discharge Instructions: - Discharge Summary Sheet jm - Abdominal Pain During jm Forms: - Medication Reconciliation Form [facility] - Thank You Letter jm - Antibiotic Education jm - Prescription Opioid Use [facility] Signatures: Dispatcher [employer] EDMS Daniel Macias PA PA jmOksana Finley mw2 Lacy Sommer, RN RN vg1 Everett Russell MD MD mh7 Kaylen Ardon df1
--- NOTE | 2021-07-26 00:27 | ER ---
Nurse's Notes [facility] Name: Sarahy Salinas Age: 31 yrs Sex: Female : 1990 Arrival Date: 07/25/2021 Time: 19:17 Bed 5 Private MD: Diagnosis: Pelvic and perineal pain Presentation: 07/25 19:46 Chief complaint: Patient states: About three days ago began having ABD cramps and vg1 spotting, also states dizziness, took test and it was Positive. Denies NVD. Coronavirus screen: Vaccine status: Patient reports receiving the 2nd dose of the covid vaccine. Client denies travel out of the [place] in the last 14 days. Ebola Screen: Patient negative for fever greater than or equal to 101.5 degrees Fahrenheit, and additional compatible Ebola Virus Disease symptoms. Initial Sepsis Screen: Does the patient meet any 2 criteria? No. Patient's initial sepsis screen is negative. Does the patient have a suspected source of infection? No. Patient's initial sepsis screen is negative. Risk Assessment: Do you want to hurt yourself or someone else? Patient reports no desire to harm self or others. Onset of symptoms was July 22, 2021. 19:46 Method Of Arrival: Ambulatory vg1 19:46 Acuity: CHRIS 3 vg1 Triage Assessment: 19:51 General: Appears in no apparent distress. comfortable, Behavior is calm, cooperative. vg1 Pain: Complains of pain in right lower quadrant and left lower quadrant Pain currently is 8 out of 10 on a pain scale. Quality of pain is described as crampy, Pain began 2-3 days ago. : Reports vaginal bleeding that is brown, spotty. 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 - Social history:: Smoking status: Patient denies any tobacco usage or history of. Screenin:25 Abuse screen: Denies threats or abuse. Nutritional screening: No deficits noted. tw5 Tuberculosis screening: No symptoms or risk factors identified. Fall Risk None identified. Assessment: 21:31 General: Appears in no apparent distress. Behavior is calm, cooperative. Pain: tw5 Complains of pain in groin and suprapubic area. Neuro: No deficits noted. Cardiovascular: No deficits noted. Respiratory: No deficits noted. GI: Bowel sounds present X 4 quads. Abd is soft and non tender X 4 quads. : No deficits noted. EENT: No deficits noted. Vital Signs: 19:46 BP 125 / 65; Pulse 94; Resp 16; Temp 97.5; Pulse Ox 100% ; Weight 86.18 kg; Height 5 vg1 ft. 5 in. (165.10 cm); Pain 8/10; 21:30 BP 109 / 61; Pulse 64; Resp 18; Pulse Ox 100% on R/A; tw5 19:46 Body Mass Index 31.62 (86.18 kg, 165.10 cm) vg1 ED Course: 19:17 Patient arrived in ED. cf2 19:51 Triage completed. vg1 19:51 Arm band placed on. vg1 19:53 Daniel Macias PA is PHCP. [facility] 19:53 Everett Russell MD is Attending Physician. [facility] 20:50 Nanda Wills is Primary Nurse. tw5 21:10 Missed attempt(s): 22 gauge in right Bleeding controlled, band aid applied, catheter oe tip intact. 21:15 Inserted saline lock: 22 gauge in left antecubital area, using aseptic technique. Blood oe collected. 21:18 Abo/rh Typing Sent. tw5 21:18 Basic Metabolic Panel Sent. tw5 21:19 CBC with Diff Sent. tw5 21:19 Quantitative Hcg Sent. tw5 21:20 Urine --Ancillary (enter results) Sent. mw2 21:25 Patient has correct armband on for positive identification. Placed in gown. Bed in low tw5 position. Call light in reach. Side rails up X 1. Pulse ox on. NIBP on. 21:25 No provider procedures requiring assistance completed. Inserted. tw5 22:14 1st Trimest Single 1st Fetus In Process Unspecified. EDMS 07/26 00:36 IV discontinued, intact, bleeding controlled, No redness/swelling at site. Pressure df1 dressing applied. Administered Medications: 07/25 22:37 Drug: Tylenol 650 mg Route: PO; df1 Outcome: 07/26 00:26 Discharge ordered by . gabby 00:36 Discharged to home ambulatory. df1 00:36 Condition: good 00:36 Discharge instructions given to patient, Instructed on discharge instructions, follow up and referral plans. Demonstrated understanding of instructions, follow-up care, medications. 00:37 Patient left the ED. df1 Signatures: Dispatcher [employer] EDMS Daniel Macias PA PA jmm Espinosa, [place] oe [place], MyKena mw2 Concepcion Guido cf2 Lacy Sommer, RN RN vg1 Kaylen Ardon df1 Nanda Wills tw5
[2021-07-26 00:42] VITALS: TEMP 97.5; O2SAT 100
[2021-07-26 00:43] VITALS: BP 109/61
--- NOTE | 2021-07-26 08:32 | RAD REPORT ---
EXAM DESCRIPTION: US - 1St Trimest Single 1St Fetus - 07/25/2021 10:14 pm CLINICAL HISTORY: pelvic pain COMPARISON: No comparisons FINDINGS: A single gestational sac is seen within the uterus. The shape of the sac is within normal limits for gestational age. Within the sac is a normal sized yolk sac. Early embryo not detected with confidence. The maternal adnexa and left ovary are within normal limits. Normal Doppler blood flow was demonstrat ed to the left ovary. The right ovary is obscured by bowel gas. IMPRESSION: Early IUP findings are present estimated at 5 weeks and 6 days. Embryo not yet visualize d due to early gestational age. Recommend correlation with HCG level follow-up pelvic sonogram 10-12 days.
== END 2021-07-26 00:37 | disposition home or self-care (01) ==
LOC: ER 19:14
DX: O26.891 Other specified pregnancy related conditions, first trimester (principal); Z3A.01 Less than 8 weeks gestation of pregnancy
CPT/HCPCS: 36415; 76801; 80048; 81003; 81025; 84702; 85025; 86900; 86901; 99284

== ENCOUNTER 2021-07-30 17:54 | Emergency (ER) | payer OTHER ==
--- OUTSIDE RECORDS SUMMARY | 2021-07-30 17:58 | XMS REPORT | Continuity of Care Document ---
:1990 Author Organization [facility] t Address Formerly [facility] [place] [address] Care Team Providers Name Role Phone PCP, DOES NOT HAVE A Primary Care Physician Unavailable Sumi Gibbs Attending Clinician SUMI LOFTON Attending Clinician Unavailable SUMI LOFTON Admitting Clinician Unavailable Payers Payer Name Policy Type Policy Number Effective Date Expiration Date S ource Advance Directives Directive Decision Effective Termination Comments Source Date Date Healthcare Agents on N/A [facility] FileNameRelationshipHealthcare [facility] Agent Medical RelationshipCommunicationBeaumont Hospitala [facility] healthcare -[phone] (Mobile) Problems Condition Condition Condition Status Onset Resolution Last Treating Co mments Source Name Details Category Date Date Treatment Clinician Date Pain Pain Disease Active Univers pelvic pelvic - ity of 00:00: [place] [address] Medical Branch History of History of Disease Active Overview : Univers PCOS PCOS 09-05 Was on ity of 00:00: metformin [place] [address] stopped Medical in Branch 09/2016 Allergies, Adverse Reactions, Alerts Allergy Allergy Status Severity Reaction(s) Onset Inactive Treating Comm ents Source Name Type Date Date Clinician NO KNOWN Drug Active Univers ALLERGIE Class ity of S [place] [facility] [place] Social History Social Habit Start Date Stop Date Quantity Comments Source Sex Assigned At [facility] Medical Branch Exposure to Not sure [facility] SARS-CoV-2 (event) Medica l Branch Alcohol intake 2018-03-15 2018-03-15 [facility] 00:00:00 00:00:00 Medical Branch Smoking Status Start Date Stop Date Source Never smoker [facility] Medications Ordered Filled Start Stop Current Ordering Indication Dosage Frequency Signature Comments Components Source Medication Medication Date Date Medication? Clinician (SIG) Name Name iohexol 2019- No 120mL 120 mL, Unive rs (OMNIPAQUE 02-09 Intravenou it y of 350 21:30: 21:11 s, ONCE, 1 [place] BULK-100 00 :00 dose, Mon Medica l mL) 02/10/20 at Branch injection 1630, 120 mL Routine morpHINE 2019- No 4mg 4 mg, Slow Un trupti injection 4 02-09 IV Push, ity of mg 20:45: 20:15 ONCE, 1 [place] 00 :00 dose, Mon Medical 02/10/20 at Branch 1545, STAT ondansetron 2019- No 4mg 4 mg, Slow Univers (ZOFRAN 02-09 IV Push, ity of (PF)) 20:45: 20:15 ONCE, 1 [place] injection 4 00 :00 dose, Mon Med ical mg 02/10/20 at Branch 1545, KALPANA NaCl 0.9% 2019- No 1000mL at 999 Uni vers (NS) bolus 02-09 mL/hr, ity of infusion 20:45: 21:00 1,000 mL, Mehul as 1,000 mL 00 :00 IV Medical Infusion, [place] ONCE, 1 dose, [facility] 02/10/20 at 1545, STAT levoFLOXaci 2017-0 Yes [...] needed for Nausea and Vomiting (N/V). tamsulosin 2018- Yes .4mg Take 1 Unive rs 0.4 [...] 23:00:00 121 mm[Hg] Univer sity of pressure [facility] Diastolic blood 2020-02-10 23:00:00 78 mm[Hg] [facility] Heart rate 2020-02-10 23:00:00 62 /min [facility] Respiratory rate 2020-02-10 23:00:00 18 /min [facility] Oxygen saturation in 2020-02-10 23:00:00 96 /min [facility] Arterial blood by [facility] Pulse oximetry Branch Body temperature 2020-02-10 17:14:00 36.22 Cha [facility] Body weight 2020-02-10 17:14:[address] [facility] BMI 2020-02-10 17:14:00 42.97 kg/m2 [facility] Procedures Procedure Date / Time Performing Clinician Source Performed US OVARY TORSION 2020-02-10 22:53:00 Teagan Lofton [facility] CT ABDOMEN PELVIS W 2020-02-10 21:15:01 Teagan Lofton [facility] CONTRAST [facility] US GALL BLADDER 2020-02-10 20:08:22 Teagan Lofton [place] [facility] LIPASE 2020-02-10 19:48:00 Teagan Lofton [place] [facility] MAGNESIUM 2020-02-10 19:48:00 Teagan Lofton Sumi [facility] COMP. METABOLIC PANEL 2020-02-10 19:48:00 Teagan Lofton [facility] ([id number]) [facility] CBC WITH DIFFERENTIAL 2020-02-10 19:48:00 Teagan Lofton [facility] URINALYSIS 2020-02-10 17:24:00 Clifford Maza [facility] POCT TEST 2020-02-10 17:24:00 [facility] FOR 2020-02-10 17:12:30 Doctor Unassigned, No Un [facility] DIAGNOSIS AND TREATMENT Name Medical Branch Encounters Start End Encounter Admission Attending Care Care Encounter Source Date/Time Date/Time Type Type Clinicians Facility Department ID 2021-08-05 2021-08-05 Outpatient [facility] [id number] Univers 14:00:00 14:00:00 [id number] [facility] 2020-02-10 2020-02-10 Emergency Teagan Lofton [facility] [id number] Univers 13:43:29 18:40:00 Sumi Glass [id number] i ty [facility] [id number] [facility] [id number] [facility] 084 Branch 2020-02-10 2020-02-10 Emergency X Teagan LOFTON [facility] ERT [id number] Univers 13:43:29 18:40:00 [facility] Results Test Test Test Results Result Source Description Time Comments Comments US OVARY 2020-02 Low suspicion for ovarian University TORSION torsion. Thickened endometrium of [place] 23:35:2 measuring up to 1.7 cm. M edical 3 Endometrium is Branch veryheterogeneous with a 2.1 x 2.0 x 1.5 cm hypoechoic region along theanterior endometrial cavity. Appearance is not typical for a polyp and noabnormal flow is seen corresponding to this region. Correlate with patientmenstrual cycle. Recommend short-term follow-up with STE[employer] MAN consultation. Anterior intramural leiomyoma. Preliminary Report Dictated [...] with patientmenstrual cycle. Recommend short-term follow-up with [employer] MAN consultation. Anterior intramural leiomyoma.Preliminary Report Dictated by Resident: Randal Carlson MD., have reviewed this study and agree with theabove report. CT ABDOMEN 2020-02 No acute intra-abdominal University PELVIS W -08 findings. Preliminary Report of [place] CONTRAST 22:00:2 Dictated by Resident: Heri Lu 5 Brandon Petty Branch I, [place] ?MD Silvio., have reviewed this study and [...] agree with the abovereport. COMP. METABOLIC PANEL (17159) 2020-02-10 20:26:00 Test Item Value Reference Range Interpretation Comme nts NA (test code = 8306878678) 137 mmol/L 135-145 K (test code = 3394341759) 4.6 mmol/L 3.5-5 CL (test code = 4547962041) 107 mmol/L 98-108 CO2 TOTAL (test code = 5898410380) 21 mmol/L 23-31 L AGAP (test code = 6875838293) 2-16 BUN (test code = 8863417432) 8 mg/dL 7-23 GLUCOSE (test code = 8957720646) 81 mg/dL 70-110 CREATININE (test code = 0.50 mg/dL 0.5-1.04 4294872832) TOTAL BILI (test code = 0.4 mg/dL 0.1-1.7 4156574515) CALCIUM (test code = 8677381367) 9.1 mg/dL 8.6-10.6 T PROTEIN (test code = 3731385784) 8.1 g/dL 6.3-8.2 ALBUMIN (test code = 3046420112) 4.6 g/dL 3.5-5 ALK PHOS (test code = 1396182064) 67 U/L 34-122 ALTv (test code = 1742-6) 25 U/L 5-35 AST(SGOT) (test code = 5720624194) 27 U/L 13-40 eGFR Calculation (Non- mL/min/1.73m2 [place]) (test code = 9356059417) eGFR Calculation ( mL/min/1.73m2 [place]) (test code = 7487896270) TERESA (test code = TERESA) Association of [...] tests). Lab Interpretation (test code = Abnormal 15788-3) [facility] 20:[facility]00 Test Item Value Reference Range Interpretation Comments LIPASE (test code = 5199493882) 55 U/L 0-220 Lab Interpretation (test code = Normal 02101-7) [facility] 20:26:00 Test Item Value Reference Range Interpretation Comments MAGNESIUM (test code = 4169478651) 2.0 mg/dL 1.7-2.4 Lab Interpretation (test code = Normal 83332-7) [facility] G[facility] [id number] 20:19:18 Unremarkable sonographic appearance of the gallbladder. No sonographicevidence of cholecystitis. Hepatic steatosis Preliminary Report Dictated by Resident: Ortiz Bland MD., have reviewed this study and agree with the abovereport.EXAM: US GALL BLADDER HISTORY: 29 years-old Female with ruq pain . TECHNIQUE: Limited abdominal ultrasound performed focused on thegallbladder. Main portal vein was evaluated with color Doppler imaging.Cell Feed Department Supervisor images were obtained for the record. COMPARISON: [...] portal vein was evaluated with color Doppler imaging.Cell Feed Department Supervisor images were obtained for the record .COMPARISON: [...] reviewed this study and agree with the abovereport.[facility] WITH [id number] 20:01:00 Test Item Value Reference Range Interpretation Comments WBC (test code = See_Comment [Automated 9389-2) message] The sy stem which generated this result transmitted reference range : 4.30 - 11.10 10*3/?L. The reference range was not used to interpret this result as normal/abnormal . RBC (test code = See_Comment [Automated 599-8) message] The sy stem which generated this [...] RDW-SD (test code = 47.4 fL 39-49.9 09446-7) RDW-CV (test code = 14.9 % 12-15.5 788-0) PLT (test code = See_Comment [Automated 777-3) message] The sy stem which generated this result transmitted reference range : 166 - 358 10*3/ ?L. The reference r mackenzie was not used to interpret this result as normal/abnormal . MPV (test code = 11.0 fL 9.5-12.9 67829-0) NRBC/100 WBC (test See_Comment [Automat ed code = 9351796191) message] The system which generated this result transmitted reference range : 0.0 - 10.0 /100 WBCs. The refer ence range was not u sed to interpret th is result as normal/abnormal . NRBC x10^3 (test code <0.01 See_Comment [Auto mated = 1141702346) message] The s ystem which generated this result transmitted reference range : 10*3/?L. The reference range was not used to interpret this result as normal/abnormal . GRAN MAT (NEUT) % 52.3 % (test code = 770-8) IMM GRAN % (test code 0.40 % = 0779349269) LYMPH % (test code = 39.1 % 736-9) MONO % (test code = 6.9 % 5905-5) EOS % (test code = 1.0 % 713-8) BASO % (test code = 0.3 % 706-2) GRAN MAT x10^3(ANC) 4.05 10*3/uL 1.88-7.09 (test code = 9757493920) IMM GRAN x10^3 (test 0.03 10*3/uL 0-0.06 code = 7723666499) LYMPH x10^3 (test code 3.02 10*3/uL 1.32-3.29 = 731-0) MONO x10^3 (test code 0.53 10*3/uL 0.33-0.92 = 742-7) EOS x10^3 (test code = 0.08 10*3/uL 0.03-0.39 711-2) BASO x10^3 (test code <0.03 0.01-0.07 = 704-7) Lab Interpretation Abnormal (test code = 06265-1) [facility] 17:55:00 Test Item Value Reference Range Interpretation Comments APPEARANCE (test code = Hazy Clear A 9764966719) COLOR (test code = Yellow Yellow 5007817776) PH (test code = 4.8-8.0 2006948730) SP GRAVITY (test code = 1.003-1.030 3743856819) GLU U QUAL (test code = Normal Normal 9051523282) BLOOD (test code = 1+ Negative A 8747908814) KETONES (test code = Negative Negative 0622228545) PROTEIN (test code = Negative Negative 2887-8) UROBILIN (test code = Normal Normal 2825040874) BILIRUBIN (test code = Negative Negative 2162902790) NITRITE (test code = Negative Negative 0748633083) LEUK EUGENE (test code = Negative Negative 3894823857) RBC/HPF (test code = See_Comment [Autom ated message] 4663926830) The system [employer] generated this result transmitted ref erence range: 0 - 3 HP F. The reference range was not used to int erpret this result as normal/abnormal . WBC/HPF (test code = See_Comment [Autom ated message] 5746363393) The system [employer] generated this result transmitted ref erence range: 0 - 5 HP F. The reference range was not used to int erpret this result as normal/abnormal . BACTERIA (test code = Few Negative A 3784493021) MUCOUS (test code = Slight Negative LPF A 2582637507) SQ EPITH (test code = HPF 5071776185) Lab Interpretation (test Abnormal code = 06527-8) [facility] [id number] 17:24:00 Test Item Value Reference Range Interpretation Comments POCT PREG (test code = 1605) negative On board controls acceptable with C present Line (test code = 3574) Lab Interpretation (test code = Normal 24768-9) [facility]"
[2021-07-30 18:51] LABS: Basophils % 0.3 % (0-1.3); Hematocrit 35.4 % (36.0-45.0); Lymphocytes % 31.1 % (15.3-44.8); MPV 8.8 fL (7.6-11.3); RBC Red Blood Cell Count 4.32 M/uL (3.86-4.86)
[2021-07-30 19:13] LABS: BUN Blood Urea Nitrogen 13 mg/dL (7-18); Bicarbonate 23 mmol/L (21-32); Glucose Level 79 mg/dL (74-106); Sodium Level 138 mmol/L (136-145)
[2021-07-30 19:24] LABS: HCG, Quantitative 20562 mIU/mL (1-3)
--- NOTE | 2021-07-30 21:46 | EDPHYS ---
Physician Documentation [facility] Name: Sarahy Salinas Age: 31 yrs Sex: Female : 1990 Arrival Date: 07/30/2021 Time: 17:58 Bed 18 Private MD: ED Physician Tylor Pepper HPI: 07/30 21:44 This 31 yrs old Female presents to ER via Ambulatory with complaints of kb Vaginal Bleeding, + Preg <12wks, Abdominal Pain. 21:44 The patient presents to the emergency department with abdominal pain, of the suprapubic kb area, that started 6 day(s) ago, vaginal bleeding, that is light, that is moderate. course: care: none. Previous pregnancies: the patient has never been . Associated signs and symptoms: Pertinent positives: abdominal pain, vaginal bleeding, Pertinent negatives: chest pain, diarrhea, dysuria, fever, frequency, nausea, ruptured membranes, seizure, shortness of breath, vaginal discharge, vomiting. The patient has not experienced similar symptoms in the past. The patient has not recently seen a physician. 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 - Social history:: Smoking status: Patient denies any tobacco usage or history of. ROS: 21:43 Constitutional: Negative for fever, chills, and weight loss. kb 21:43 Abdomen/GI: Positive for abdominal cramps, Negative for nausea, vomiting, and diarrhea. 21:43 : Positive for vaginal bleeding. 21:43 All other systems are negative. Exam: 21:43 Constitutional: This is a well developed, well nourished patient who is awake, alert, kb and in no acute distress. Head/Face: Normocephalic, atraumatic. ENT: Moist Mucous membranes Cardiovascular: Regular rate and rhythm with a normal S1 and S2. No gallops, murmurs, or rubs. No pulse deficits. Respiratory: Respirations even and unlabored. No increased work of breathing, no retractions or nasal flaring. Skin: Warm, dry with normal turgor. Normal color. MS/ Extremity: Pulses equal, no cyanosis. Neurovascular intact. Full, normal range of motion. Neuro: Awake and alert, GCS 15, oriented to person, place, time, and situation. Moves all extremities. Normal gait. Psych: Awake, alert, with orientation to person, place and time. Behavior, mood, and affect are within normal limits. 21:43 Abdomen/GI: Inspection: abdomen appears normal, Bowel sounds: normal, in all quadrants, Palpation: soft, in all quadrants, moderate abdominal tenderness, in the suprapubic area. Vital Signs: 18:18 BP 122 / 81; Pulse 72; Resp 18; Temp 96.7; Pulse Ox 100% ; Weight 87.09 kg; Pain 10/10; ss 22:07 BP 118 / 74; Pulse 80; Resp 16 S; Temp 98.4(O); Pulse Ox 100% on R/A; bb Procedures: 21:48 Peripheral line: by aseptic technique a peripheral line was placed in the right kb antecubital vein. MDM: 18:31 Patient medically screened. kb 21:43 Data reviewed: vital signs, nurses notes. Data interpreted: Pulse oximetry: on room air kb is 100 %. Interpretation: normal. Counseling: I had a detailed discussion with the patient and/or guardian regarding: the historical points, exam findings, and any diagnostic results supporting the discharge/admit diagnosis, lab results, radiology results, the need for outpatient follow up, an OB/Gyne specialist, to return to the emergency department if symptoms worsen or persist or if there are any questions or concerns that arise at home. 07/30 18:21 Order name: Basic Metabolic Panel; Complete Time: 19:32 ss 07/30 18:21 Order name: CBC with Diff; Complete Time: 18:58 ss 07/30 18:21 Order name: US Transvaginal Ob; Complete Time: 21:59 ss 07/30 18:21 Order name: Quantitative Hcg; Complete Time: 19:32 ss 07/30 18:21 Order name: IV Saline Lock; Complete Time: 20:18 ss 07/30 18:21 Order name: Labs collected and sent; Complete Time: 20:18 ss 07/30 18:21 Order name: NPO; Complete Time: 20:18 ss 07/30 18:21 Order name: Urine Dipstick-Ancillary (obtain specimen) 07/30 18:21 Order name: Urine Test (obtain specimen) Administered Medications: No medications were administered Disposition Summary: 07/30/21 21:46 Discharge Ordered Location: Home kb Condition: Stable kb Diagnosis - Threatened kb Followup: kb - With: Emergency Department - When: As needed - Reason: Worsening of condition Followup: kb - With: Private Physician - When: 2 - 3 days - Reason: Recheck today's complaints, Continuance of care, Re-evaluation by your physician Discharge Instructions: - Discharge Summary Sheet kb - Threatened Miscarriage, [id number] kb - Vaginal Bleeding During , First Trimester, [id number] kb Forms: - Medication Reconciliation Form kb - Thank You Letter kb - Work release form kb - Antibiotic Education kb - Prescription Opioid Use kb Addendum: 08/01/2021 09:15 Co-signature as Attending Physician, Tylor Pepper MD I agree with the assessment and k dr plan of care. Signatures: Dispatcher [employer] EDBrianna Gaytan, ELECTRICAL ASSEMBLY SUPERVISOR-C ELECTRICAL ASSEMBLY SUPERVISOR-Ckb Tylor Pepper MD MD [facility] Mindi Wolfe, GIULIANA RN ss Corrections: (The following items were deleted from the chart) 07/30 21:45 21:44 1, 0, Living 0, LMP 06/2021 kb kb
--- NOTE | 2021-07-30 21:46 | ER ---
Nurse's Notes [facility] Name: Sarahy Salinas Age: 31 yrs Sex: Female : 1990 Arrival Date: 07/30/2021 Time: 17:58 Bed 18 Private MD: Diagnosis: Threatened Presentation: 07/30 18:18 Chief complaint: Patient states: vaginal bleeding and lower abd pain for 6 days. ss Coronavirus screen: Vaccine status: Patient reports receiving the 2nd dose of the covid vaccine. Ebola Screen: Patient negative for fever greater than or equal to 101.5 degrees Fahrenheit, and additional compatible Ebola Virus Disease symptoms Patient denies exposure to infectious person. Patient denies travel to an Ebola-affected area in the 21 days before illness onset. No symptoms or risks identified at this time. Initial Sepsis Screen: Does the patient meet any 2 criteria? No. Patient's initial sepsis screen is negative. Does the patient have a suspected source of infection? No. Patient's initial sepsis screen is negative. Risk Assessment: Do you want to hurt yourself or someone else? Patient reports no desire to harm self or others. Onset of symptoms was July 24, 2021. 18:18 Method Of Arrival: Ambulatory ss 18:18 Acuity: CHRIS 3 ss Triage Assessment: 18:20 General: Appears in no apparent distress. comfortable, Behavior is calm, cooperative. ss Pain: Complains of pain in suprapubic area. : Reports vaginal bleeding that is bright red. 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 - Social history:: Smoking status: Patient denies any tobacco usage or history of. Assessment: 22:06 Reassessment: Pt seen by this RN at discharge, pt is A\T\O x 4, resp unlabored, pt bb verbalized understanding of and agrees to plan of care discharge instructions given pt ambulated with steady gait to exit accompanied by family. Vital Signs: 18:18 BP 122 / 81; Pulse 72; Resp 18; Temp 96.7; Pulse Ox 100% ; Weight 87.09 kg; Pain 10/10; ss 22:07 BP 118 / 74; Pulse 80; Resp 16 S; Temp 98.4(O); Pulse Ox 100% on R/A; bb ED Course: 17:58 Patient arrived in ED. mr 18:20 Triage completed. ss 18:20 Arm band placed on right wrist. ss 18:31 Bri[facility] Ventura [facility]-C [facility] kb 18:31 Tylor Pepper MD is Attending Physician. kb 21:18 Kaylen Ardon is Primary Nurse. df1 21:39 US Transvaginal Ob In Process Unspecified. EDMS 22:08 Patient did not have IV access during this emergency room visit. bb Administered Medications: No medications were administered Outcome: 21:46 Discharge ordered by MD. kb 22:08 Discharged to home ambulatory, with family. bb 22:08 Condition: stable 22:08 Discharge instructions given to patient, Instructed on discharge instructions, follow up and referral plans. medication usage, Demonstrated understanding of instructions, follow-up care, medications, Prescriptions given X 1. 22:08 Patient left the ED. bb Signatures: Dispatcher [employer] EDME Brianna Ventura FNP-C FNP-Ckb RiveraCarmen BrittonTelma, RN RN Mindi Mccarthy, GIULIANA RN Kaylen Ardon df1
--- NOTE | 2021-07-30 21:57 | RAD REPORT ---
EXAM DESCRIPTION: US - Transvaginal OB - 07/30/2021 9:39 pm CLINICAL HISTORY: with vaginal bleeding and abdominal pain COMPARISON: July 25, 2021 FINDINGS: The uterus measures 10 x 6 x 8 centimeters. A pole is present within a gestational sac. A pole measures 4 millimeters. Cardiac activity 116 beats per minute Ovaries are normal in size and echotexture.. 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
[2021-07-30 22:42] VITALS: O2SAT 100
[2021-07-30 22:43] VITALS: BP 118/74; TEMP 98.4
== END 2021-07-30 22:08 | disposition home or self-care (01) ==
LOC: ER 17:54
DX: O20.0 Threatened abortion (principal)
CPT/HCPCS: 36415; 76817; 80048; 84702; 85025; 99283

== ENCOUNTER 2022-10-28 09:43 | Emergency (ER) | payer SELFPAY ==
[2022-10-28 10:23] LABS: Urine Blood 2+ (Negative); Urine Glucose Negative (Negative); Urine Protein 1+ (Negative); Urine Specific Gravity >=1.030 (1.005-1.030); Urine pH 6.5 (5.0-7.0)
[2022-10-28 10:47] LABS: Transitional Epithelial <5 /HPF (None Seen); Urine Bacteria <20 /HPF (<20); Urine Mucus Slight /HPF (None Seen); Urine RBC >50 /HPF (None Seen)
--- NOTE | 2022-10-28 12:12 | EDPHYS ---
Physician Documentation [facility] Name: Lauren Rizo Age: 32 yrs Sex: Female : 1990 Arrival Date: 10/28/2022 Time: 09:46 Bed 13 Private MD: ED Physician Carrillo Pittman HPI: 10/28 11:44 This 32 yrs old Female presents to ER via Ambulatory with complaints of Flank snw Pain, Pain With Urination. Historical: - Allergies: 09:56 No Known Allergies; hb - Home Meds: 12:11 None [Active]; hb - PMHx: 12:11 None; hb - PSHx: 12:11 None; hb ROS: 11:44 Constitutional: Negative for fever, chills, and weight loss, Eyes: Negative for injury, snw pain, redness, and discharge, ENT: Negative for injury, pain, and discharge, Neck: Negative for injury, pain, and swelling, Cardiovascular: Negative for chest pain, palpitations, and edema, Respiratory: Negative for shortness of breath, cough, wheezing, and pleuritic chest pain, Abdomen/GI: Negative for abdominal pain, nausea, vomiting, diarrhea, and constipation, MS/Extremity: Negative for injury and deformity, Skin: Negative for injury, rash, and discoloration, Neuro: Negative for headache, weakness, numbness, tingling, and seizure. 11:44 Back: Positive for flank pain. 11:44 : Positive for urinary symptoms. Exam: 11:43 Constitutional: This is a well developed, well nourished patient who is awake, alert, snw and in no acute distress. MS/ Extremity: Pulses equal, no cyanosis. Neurovascular intact. Full, normal range of motion. 11:43 Special observations: Calm in lobby, voided, walked sample to triage nurse. 16:31 Neuro: Gait: is steady, at a normal pace. snw Vital Signs: 09:54 BP 144 / 71; Pulse 73; Resp 16; Temp 98.1(O); Pulse Ox 100% on R/A; Weight 88.45 kg; hb Height 5 ft. (152.40 cm); Pain 8/10; 09:54 Body Mass Index 38.08 (88.45 kg, 152.40 cm) hb MDM: 09:54 Patient medically screened. snw 11:40 ED course: Pt observed walking out of lobby bathroom with urine specimen in no acute snw distress. [facility]. Urine micro returned with blood. Room 13 being mopped for pt. Second to flank pain and hematuria, neg test, Stone protocol ordered. . ED course: Unable to locate patient in lobby or CT. Phone number on record called multiple times with no answer.. 11:44 Differential diagnosis: nephrolithiasis, pyelonephritis, UTI, Hydronephrosis . snw Data reviewed: vital signs, nurses notes, lab test result(s). 16:30 ED course: called pt x 2 again to see in ED, "the wireless customer you called is not snw available now". 10/28 09:57 Order name: Urine Culture snw 10/28 09:57 Order name: Urine Microscopic Only; Complete Time: 11:02 snw 10/28 09:57 Order name: Urine Dipstick-Ancillary (obtain specimen); Complete Time: 10:39 snw 10/28 10:24 Order name: Urine Dipstick-Ancillary; Complete Time: 10:25 EDMS 10/28 10:25 Order name: Urine --Ancillary (enter results); Complete Time: 10:32 eb 10/28 09:57 Order name: Urine Test (obtain specimen); Complete Time: 10:39 snw Administered Medications: No medications were administered Disposition Summary: 10/28/22 17:31 Discharge Ordered Location: Home snw Condition: Stable(10/28/22 17:31) snw Diagnosis - UTI/ Urinary tract infection, site not specified(10/28/22 17:31) snw Followup: snw - With: Emergency Department - When: As needed - Reason: Worsening of condition Followup: snw - With: Private Physician - When: 2 - 3 days - Reason: Recheck today's complaints, Continuance of care, Re-evaluation by your physician Discharge Instructions: - Discharge Summary Sheet snw - Urinary Tract Infection, Adult snw - Rehydration, Adult snw Forms: - Medication Reconciliation Form snw - Thank You Letter snw - Antibiotic Education snw - Prescription Opioid Use snw Prescriptions: - Augmentin 875-125 mg Oral Tablet - take 1 tablet by ORAL route every 12 hours for 10 days; 20 tablet; Refills: 0, snw Product Selection Permitted Signatures: Dispatcher [employer] EDMS Leatha Womack, INDUSTRIAL ENGINEERING TECHNICIAN-C INDUSTRIAL ENGINEERING TECHNICIAN-Csnw Naheed Moreau, RN RN Corrections: (The following items were deleted from the chart) 17:30 12:11 after being seen by provider hb snw 17:30 12:11 unknown hb snw 17:30 17:30 Stable snw snw 17:30 17:30 UTI/ Urinary tract infection, site not specified snw snw
--- NOTE | 2022-10-28 12:12 | ER ---
Nurse's Notes [facility] Name: Lauren Rizo Age: 32 yrs Sex: Female : 1990 Arrival Date: 10/28/2022 Time: 09:46 Bed 13 Private MD: Diagnosis: UTI/ Urinary tract infection, site not specified Presentation: 10/28 09:54 Chief complaint: Right flank pain that radiates to lower abdomen, pain with urination, hb blood in urine, and nausea x 3 days. Coronavirus screen: At this time, the client does not indicate any symptoms associated with coronavirus-19. Ebola Screen: No symptoms or risks identified at this time. Initial Sepsis Screen: Does the patient meet any 2 criteria? No. Patient's initial sepsis screen is negative. Does the patient have a suspected source of infection? No. Patient's initial sepsis screen is negative. Risk Assessment: Do you want to hurt yourself or someone else? Patient reports no desire to harm self or others. Onset of symptoms was October 25, 2022. 09:54 Method Of Arrival: Ambulatory hb 09:54 Acuity: CHRIS 3 hb Historical: - Allergies: 09:56 No Known Allergies; hb - Home Meds: 12:11 None [Active]; hb - PMHx: 12:11 None; hb - PSHx: 12:11 None; hb Assessment: 11:20 Reassessment: patient not in room. db 11:45 Reassessment: patient not in room. db 11:52 Reassessment: unable to locate patient. notified provider and charge nurse. db Vital Signs: 09:54 BP 144 / 71; Pulse 73; Resp 16; Temp 98.1(O); Pulse Ox 100% on R/A; Weight 88.45 kg; hb Height 5 ft. (152.40 cm); Pain 8/10; 09:54 Body Mass Index 38.08 (88.45 kg, 152.40 cm) hb ED Course: 09:46 Patient arrived in ED. mr 09:53 Leatha Womack [facility]NP-C [facility] snw 09:53 Carrillo Pittman MD is Attending Physician. snw 09:56 Triage completed. hb 11:03 Anahi Miller RN is Primary Nurse. db 11:03 Patient's name was called from ER lobby. No response. hb 11:20 Patient's name was called from ER lobby. No response. hb 12:11 Patient's name was called from ER lobby. No response. Unable to locate patient. Will hb disposition as left without being seen by a provider. Administered Medications: No medications were administered Outcome: 12:11 Eloped after seeing physician hb 12:11 Patient left the ED. hb 17:31 Discharge ordered by . ximena 17:43 Patient left the ED. hb Addendum: 10/30/2022 07:47 Addendum: Culture Results: Positive urine culture. No further action required. Bacteria e b sensitive to prescribed antibiotic. Signatures: Leatha Womack, ROLANDC CHIEF CUSTOMER OFFICER-Carmen Ocampo Heather, RN RN Clarice Arellano Danielle, RN RN db
[2022-10-28 13:22] VITALS: BP 144/71; TEMP 98.1; O2SAT 100
== END 2022-10-28 17:43 | disposition home or self-care (01) ==
LOC: ER 09:43
DX: N39.0 Urinary tract infection, site not specified (principal)
CPT/HCPCS: 81003; 81015; 81025; 87077; 87086; 87088; 87186; 99281

== ENCOUNTER 2023-05-09 11:28 | Emergency (ER) | payer OTHER ==
--- OUTSIDE RECORDS SUMMARY | 2023-05-09 11:33 | XMS REPORT | Continuity of Care Document ---
:1990 Author Organization [facility] t Address [address] [facility] [place] [address] Care Team Providers Name Role Phone MARITZA WEINSTEIN Primary Care Physician Unavailable VIKRAM LGASS Attending Clinician Unavailable MARITZA WEINSTEIN Attending Clinician Unavailable SIMRAN SANCHEZ Attending Clinician Unavailable UNKNOWN, ATTENDING Attending Clinician Unavailable NurseJv Exp Cprit Obgyn Attending Clinician Unavail able Maritza Mendoza Attending Clinician [phone] LAVELLE ACEVEDO Attending Clinician Unavailable Doctor Unassigned, [place] Attending Clinician Unavailable EVIE ALEJANDRE Attending Clinician Unavailable ELIZABETH RUSSELL Attending Clinician Unavailable Elizabeth Russell DO Attending Clinician Alex Moon MD Attending Clinician Sandie Lee MD Attending Clinician Ultrasound, Ang-Mfm Attending Clinician Unavailable Nixon Perry MD Attending Clinician NIXON PERRY Attending Clinician Unavailable Renetta Tejeda MD Attending Clinician RENETTA TEJEDA Attending Clinician Unavailable BAILEY PEDERSEN Attending Clinician Unavailable BAILEY PEDERSEN Attending Clinician Unavailable Lab, Pea-Rmchp Attending Clinician Unavailable Bailey Pedersen MD Attending Clinician 1, [facility]-M[facility] Us Room Attending Clinician Unavailable Teagan Gibbs Attending Clinician Teagan LOFTON Attending Clinician Unavailable ELIZABETH RUSSELL Admitting Clinician Unavailable Elizabeth Russell DO Admitting Clinician Teagan LOFTON Admitting Clinician Unavailable Payers Payer Name Policy Type Policy Number Effective Date Expiration Date Beverly biggs AETNA [employer]S 2 [id number] 2023 MARK[employer]ACE 00:00:00 FAMILY PLANNING [id number] 2022 RUDOLPH 0-100% 00:00:00 AMERIGROUP MOM CHIP [id number] 2021 BHARGAVI LOW FPL 00:00:00 TMHP [id number] EMERGENCY [id number] 2022 2022 MEDICAID 00:00:00 00:00:00 CHIP BHARGAVI LOW PENDING 2022 2022 FPL-PENDING TP30 00:00:00 00:00:00 MEDICAID Problems Condition Condition Condition Status Onset Resolution Last Treating Co mments Source Name Details Category Date Date Treatment Clinician Date Nexplanon Nexplanon Disease Active Uni vers insertion insertion 9 ity of 00:00: [place] [facility] Nexplanon Nexplanon Disease Active Uni vers removal removal 08 ity of 00:00: [place] [facility] Other Other Disease Active Univers general general 8-30 [place] of [place] advice 00 Ar dical for [facility] contracept contracept bandar bandar management management Gestationa Gestationa Disease Active U nivers l l 7-11 ity of hypertens[place]ens[place] Anemia, Anemia, Disease Active Univers unspecifie unspecifie 4-27 it y of d d 00:00: [place] 00 Medical Branch Yeast Yeast Disease Active Univers infection infection 4-26 ity of of the of the 00:00: [place] vagina vagina 00 Medical Branch Obesity Obesity Disease Active 2020-09 Univers (BMI (BMI 2-15 ity of 30-39.9) 30-39.9) 00:00: 00 Medical [place] Pain Pain Disease Active Univers pelvic pelvic 09-05 ity of 00:00: [place] [id number] Medical [place] History of History of Disease Active Overview : Univers PCOS PCOS 09-05 Formattin ity of 00:00: g of this 00 note Medical might be Branch different from the original. Was on metformin stopped in 09/2016 Allergies, Adverse Reactions, Alerts Allergy Allergy Status Severity Reaction(s) Onset Inactive Treating Comm ents Source Name Type Date Date Clinician NO KNOWN Drug Active Univers ALLERGIE Class ity of S [facility] Social History Social Habit Start Date Stop Date Quantity Comments Source Exposure to 2022-09-25 2022-10-05 Not sure [facility]-CoV-2 00:00:00 15:19:00 [facility] (event) [place] Alcohol intake 2022-10-05 2022-10-05 Current University 00:00:00 00:00:00 non-drinker of [facility] alcohol (finding) [place] Tobacco use and 2022-04-05 2022-04-05 Smokeless tobacco Un iversity of exposure 00:00:00 00:00:00 non-user [facility] Sex Ass[birth year] At [birth year] Universit y of 00:00:00 00:00:00 [facility] Smoking Status Start Date Stop Date Source Never smoked tobacco [facility] Medications Ordered Filled Start Stop Current Ordering Indication Dosage Frequency Signature Comments Components Source Medication Medication Date Date Medication? Clinician (SIG) Name Name etonogestre 2021- No [id number] 68mg Univers L 05-12 ity of (NEXPLANON) 22:00: 21:09 [place] implant 68 00 :00 Medical mg Branch etonogestre 2021- No [id number] 68mg 68 mg, Univers L 05-12 Subdermal, ity of (NEXPLANON) 22:00: 21:09 ONCE NOW, [place] implant 68 00 :00 1 dose, On Med ical mg Jia 05/12/22 Branch at 1700, Routine
Use approved by: PUMP STATION OPERATOR Yes [id number] 1{tbl} Take 1 Univers [id number] 7-11 tablet by ity of fum-folic 00:00: mouth [place] () 00 daily. Medical 27 mg iron- Branch 1 mg folic tablet docusate Yes [id number] 200mg Take 2 U nivers 100 mg 7-11 capsules ity of capsule 00:00: by mouth [place] 00 once daily Medical as needed Branch for Constipati on. ferrous Yes [id number] 325mg Take 1 Un trupti sulfate 325 7-11 tablet by ity of mg (65 mg 00:00: mouth 2 [place] iron) 00 (two) Medical tablet times Branch daily. ibuprofen Yes [id number] 600mg Take 1 Univers 600 mg 7-11 tablet by ity of tablet 00:00: mouth [place] 00 every 6 Medical (six) Branch hours as needed (Pain). Take with food or milk. Yes [id number] 1{tbl} Take 1 Univers [id number] 7-11 tablet by ity of fum-folic 00:00: mouth [place] () 00 daily. Medical 27 mg iron- Branch 1 mg folic tablet docusate Yes [id number] 200mg Take 2 U nivers 100 mg 7-11 capsules ity of capsule 00:00: by mouth [place] 00 once daily Medical as needed Branch for Constipati on. ferrous Yes [id number] 325mg Take 1 Un trupti sulfate 325 7-11 tablet by ity of mg (65 mg 00:00: mouth 2 [place] iron) 00 (two) Medical tablet times Branch daily. ibuprofen Yes [id number] 600mg Take 1 Univers 600 mg 7-11 tablet by ity of tablet 00:00: mouth [place] 00 every 6 Medical (six) Branch hours as needed (Pain). Take with food or milk. Yes [id number] 1{tbl} Take 1 Univers [id number] 7-11 tablet by ity of fum-folic 00:00: mouth [place] () 00 daily. Medical 27 mg iron- Branch 1 mg folic tablet docusate Yes [id number] 200mg Take 2 U nivers 100 mg 7-11 capsules ity of capsule 00:00: by mouth [place] 00 once daily Medical as needed Branch for Constipati on. ferrous Yes [id number] 325mg Take 1 Un trupti sulfate 325 7-11 tablet by ity of mg (65 mg 00:00: mouth 2 [place] iron) 00 (two) Medical tablet times Branch daily. ibuprofen 2021-0 Yes [id number] 600mg Take 1 Univers 600 mg 7-11 tablet by ity of tablet 00:00: mouth [place] 00 every 6 Medical (six) Branch hours as needed (Pain). Take with food or milk. 2021-0 Yes [id number] 1{tbl} Take 1 Univers [id number] 7-11 tablet by ity of fum-folic 00:00: mouth [place] () 00 daily. Medical 27 mg iron- Branch 1 mg folic tablet docusate 0 Yes [id number] 200mg Take 2 U nivers 100 mg 7-11 capsules ity of capsule 00:00: by mouth [place] 00 once daily Medical as needed Branch for Constipati on. ferrous 0 Yes [id number] 325mg Take 1 Un trupti sulfate 325 7-11 tablet by ity of mg (65 mg 00:00: mouth 2 [place] iron) 00 (two) Medical tablet times Branch daily. ibuprofen 0 Yes [id number] 600mg Take 1 Univers 600 mg 7-11 tablet by ity of tablet 00:00: mouth [place] 00 every 6 Medical (six) Branch hours as needed (Pain). Take with food or milk. 2021-0 Yes [id number] 1{tbl} Take 1 Univers [id number] 7-11 tablet by ity of fum-folic 00:00: mouth [place] () 00 daily. Medical 27 mg iron- Branch 1 mg folic tablet docusate 0 Yes [id number] 200mg Take 2 U nivers 100 mg 7-11 capsules ity of capsule 00:00: by mouth [place] 00 once daily Medical as needed Branch for Constipati on. ferrous 2021-0 Yes [id number] 325mg Take 1 Un trupti sulfate 325 7-11 tablet by ity of mg (65 mg 00:00: mouth 2 [place] iron) 00 (two) Medical tablet times Branch daily. ibuprofen 2021-0 Yes [id number] 600mg Take 1 Univers 600 mg 7-11 tablet by ity of tablet 00:00: mouth [place] 00 every 6 Medical (six) Branch hours as needed (Pain). Take with food or milk. 2021-0 Yes [id number] 1{tbl} Take 1 Univers [id number] 7-11 tablet by ity of fum-folic 00:00: mouth [place] () 00 daily. Medical 27 mg iron- Branch 1 mg folic tablet docusate Yes [id number] 200mg Take 2 U nivers 100 mg 7-11 capsules ity of capsule 00:00: by mouth [place] 00 once daily Medical as needed Branch for Constipati on. ferrous Yes [id number] 325mg Take 1 Un trupti sulfate 325 7-11 tablet by ity of mg (65 mg 00:00: mouth 2 [place] iron) 00 (two) Medical tablet times Branch daily. ibuprofen Yes [id number] 600mg Take 1 Univers 600 mg 7-11 tablet by ity of tablet 00:00: mouth [place] 00 every 6 Medical (six) Branch hours as needed (Pain). Take with food or milk. Yes [id number] 1{tbl} Take 1 Univers [id number] 7-11 tablet by ity of fum-folic 00:00: mouth [place] () 00 daily. Medical 27 mg iron- Branch 1 mg folic tablet docusate Yes [id number] 200mg Take 2 U nivers 100 mg 7-11 capsules ity of capsule 00:00: by mouth [place] 00 once daily Medical as needed Branch for Constipati on. ferrous Yes [id number] 325mg Take 1 Un trupti sulfate 325 7-11 tablet by ity of mg (65 mg 00:00: mouth 2 [place] iron) 00 (two) Medical tablet times Branch daily. ibuprofen Yes [id number] 600mg Take 1 Univers 600 mg 7-11 tablet by ity of tablet 00:00: mouth [place] 00 every 6 Medical (six) Branch hours as needed (Pain). Take with food or milk. Immunizations Ordered Filled Immunization Date Status Comments [facility] e Immunization Name Name [facility] 2022-10-05 Completed University of 00:00: [facility] 2022-05-03 Completed University of 00:00: [facility] 2022-05-03 Completed University of 00[facility]00: [facility] 2022-05-03 Completed University of 00:00: [facility] 2022-05-03 Completed University of 00:00: [facility] 2022-05-03 Completed University of 00:00:00 [facility] HPV9 2022-05-03 Completed University of 00:00:00 [facility] HPV9 2022-05-03 Completed University of 00:00:00 [facility] HPV9 2022-03-14 Completed University of 00:00:00 [facility] HPV9 2022-03-14 Completed University of 00:00:00 [facility] HPV9 2022-03-14 Completed University of 00:00:00 [facility] HPV9 2022-03-14 Completed University of 00:00:00 [facility] HPV9 2022-03-14 Completed University of 00:00:00 [facility] HPV9 2022-03-14 Completed University of 00:00:00 [facility] HPV9 2022-03-14 Completed University of 00:00:00 [facility] TDAP 2022-01-11 Completed University of 00:00:00 [facility] TDAP 2022-01-11 Completed University of 00:00:00 [facility] TDAP 2022-01-11 Completed University of 00:00:00 [facility] TDAP 2022-01-11 Completed University of 00:00:00 [facility] TDAP 2022-01-11 Completed University of 00:00:00 [facility] TDAP 2022-01-11 Completed University of 00:00:00 [facility] TDAP 2022-01-11 Completed University of 00:00:00 [facility] SARS-COV-2 COVID-19 2021-05-11 Completed Unive rsity of PFIZER VACCINE 00:00:00 [facility] SARS-COV-2 COVID-19 2021-05-11 Completed Unive rsity of PFIZER VACCINE 00:00:00 [facility] SARS-COV-2 COVID-19 2021-05-11 Completed Unive rsity of PFIZER VACCINE 00:00:00 [facility] SARS-COV-2 COVID-19 2021-05-11 Completed Unive rsity of PFIZER VACCINE 00:00:00 [facility] SARS-COV-2 COVID-19 2021-05-11 Completed Unive rsity of PFIZER VACCINE 00:00:00 [facility] SARS-COV-2 COVID-19 2021-05-11 Completed Unive rsity of PFIZER VACCINE 00:00:00 [facility] SARS-COV-2 COVID-19 2021-05-11 Completed Unive rsity of PFIZER VACCINE 00:00:00 [facility] SARS-COV-2 COVID-19 2021-04-20 Completed Unive rsity of PFIZER VACCINE 00:00:00 [facility] SARS-COV-2 COVID-19 2021-04-20 Completed Unive rsity of PFIZER VACCINE 00:00:00 [facility] SARS-COV-2 COVID-19 2021-04-20 Completed Unive rsity of PFIZER VACCINE 00:00:00 [facility] SARS-COV-2 COVID-19 2021-04-20 Completed Unive rsity of PFIZER VACCINE 00:00:00 [facility] SARS-COV-2 COVID-19 2021-04-20 Completed Unive rsity of PFIZER VACCINE 00:00:00 [facility] SARS-COV-2 COVID-19 2021-04-20 Completed Unive rsity of PFIZER VACCINE 00:00:00 [facility] SARS-COV-2 COVID-19 2021-04-20 Completed Unive rsity of PFIZER VACCINE 00:00:00 [facility] Vital Signs Vital Name Observation Time Observation Value Comments Source Body temperature 2022-10-05 21:20:[address] [facility] [place] [facility] Body weight 2022-10-05 21:20:00 98.93 kg [facility] BMI 2022-10-05 21:20:00 39.89 kg/m2 [facility] Systolic blood 2022-06-16 20:59:00 128 mm[Hg] Univer sity of pressure [facility] Diastolic blood 2022-06-16 20:59:00 79 mm[Hg] Unive rsity of pressure [facility] Heart rate 2022-06-16 20:59:00 79 /min [facility] Body temperature 2022-06-16 20:59:00 36.11 Cha Univ ersity [facility] Respiratory rate 2022-06-16 20:59:00 18 /min Univ ersity of [facility] Body weight 2022-06-16 20:59:00 94.756 kg [facility] BMI 2022-06-16 20:59:00 38.21 kg/m2 Universi ty [facility] [place] [facility] Systolic blood 2022-06-09 21:23:00 135 mm[Hg] Univer sity of pressure [place] [facility] Diastolic blood 2022-06-09 21:23:00 84 mm[Hg] Unive rsity of pressure [place] [facility] Heart rate 2022-06-09 21:23:00 90 /min Universi ty [facility] [place] [facility] [place] Body temperature 2022-06-09 21:23:00 36.11 Cha Univ ersity of [place] [facility] Respiratory rate 2022-06-09 21:23:00 20 /min Univ ersity of [place] [facility] Body height 2022-06-09 21:23:00 157.5 cm [facility]i ty [facility] [place] [facility] Body weight 2022-06-09 21:23:00 94.394 kg [facility]i ty [facility] [place] [facility] [place] BMI 2022-06-09 21:23:00 38.06 kg/m2 [facility] [place] [facility] Systolic blood 2022-05-12 20:28:00 121 mm[Hg] Univer sity of pressure [place] [facility] Diastolic blood 2022-05-12 20:28:00 75 mm[Hg] Unive rsity of pressure [place] [facility] Heart rate 2022-05-12 20:28:00 81 /min [facility]i [facility] [place] [facility] Body temperature 2022-05-12 20:28:00 36.17 Cha Univ ersity of [place] [facility] Respiratory rate 2022-05-12 20:28:00 18 /min Univ ersity of [place] [facility] Body height 2022-05-12 20:28:00 157.5 cm [facility] [place] [facility] Body weight 2022-05-12 20:28:00 98.204 kg [facility] [place] [facility] BMI 2022-05-12 20:28:00 39.60 kg/m2 [facility] [place] [facility] Procedures Procedure Date / Time Performed Performing Clinician Charleen arnold GARDASIL 9 (HPV 9V) 2022-10-05 21:05:53 AkinMaritza pedersen Uni versity [facility] VACCINE [facility] DISCLOSURE AND 2022-06-16 05:01:00 Doctor Unassigned, [facility] AND Name Medical [facility] SURGICAL PROCEDURES POCT TEST 2022-05-12 20:34:00 Maritza Weinstein [facility] Encounters Start End Encounter Admission Attending Care Care Encounter Source Date/Time Date/Time Type Type Clinicians Facility Department ID 2023-05-29 2023-05-29 Outpatient SANNA GLASS [id number] Sanna 14:00:00 14:00:00 VIKRAM irizarry 2023-05-09 2023-05-09 Outpatient SANNA GLASS [id number] Sanna 00:00:00 00:00:00 VIKRAM irizarry 2022-11-17 2022-11-17 Outpatient R LAURA [facility] [id number] Univers 12:45:00 12:45:00 SIMRAN [facility] 2022-10-26 2022-10-26 Outpatient R PARK [facility] [id number] Univers 13:20:00 13:20:00 ATTENDING [facility] [place] [facility] 2022-10-05 2022-10-05 Nurse Nurse, Jv Rmchp Exp Cprit Obgyn U T[facility] [id number] Univers 15:00:00 15:20:32 Visit Maritza Weinstein PUMP STATION OPERATOR 350.1.13. 10 [facility] [id number] Mehul as MATERNAL [id number] Med ical & CHILD [address] [place] [address] 2022-10-05 2022-10-05 Outpatient R JS [facility] [id number] Univers 15:00:00 15:20:32 MARITZA li [facility] 2022-10-05 2022-10-05 Outpatient R [facility] [id number] Univers 14:00:00 14:00:00 [facility] 2022-09-26 2022-09-26 Outpatient R JS [facility] [id number] Univers 15:15:00 15:15:00 MARITZA gerber o f [facility] 2022-06-16 2022-06-16 Outpatient R JS [facility] [id number] Univers 15:45:00 16:21:29 MARITZA martelly o f [facility] 2022-06-16 2022-06-16 [facility] [id number] Univers 15:45:00 16:21:29 Visit Maritza Jose Juan PUMP STATION OPERATOR [id number] ity of [facility] 4.2.7.2.686 Mehul as MATERNAL [id number] [facility] & CHILD [address] [place] [address] 2022-06-16 2022-06-16 Outpatient R JS, [facility] [id number] Univers 15:45:00 15:45:00 MARITZA gerber o [facility] 2022-06-16 2022-06-16 Orders Doctor VILLAVICENCIO [id number] Univers 00:00:00 00:00:00 Only Unassigned, SHIRA 350.1.13.10 ity of [place] [facility] 4.2.7.2.686 Mehul as [id number] [address] 2022-06-09 2022-06-09 Outpatient R JS, [facility] [id number] Univers 15:00:00 16:48:37 MARITZA gerber o [facility] 2022-06-09 2022-06-09 [facility] [id number] Univers 15:00:00 16:48:37 Visit 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 350.1.13.10 ity of [facility] 4.2.7.2.686 Mehul as MATERNAL [id number] [facility] & [address] 2022-05-26 2022-05-26 Outpatient R JS, [facility] [id number] Univers 15:30:00 15:30:00 MARITZA gerber o [facility] 2022-05-13 2022-05-13 Outpatient R HILL, [facility] [id number] Univers 14:30:00 14:30:00 EVIE gerber [facility] 2022-05-12 2022-05-12 Office Js, [facility] [id number] Univers 15:00:00 16:04:50 Visit [facility] C PUMP STATION OPERATOR [id number] ity of [facility] 4.2.7.2.686 Mehul as MATERNAL [id number] [facility] & [address] 2022-05-12 2022-05-12 Outpatient R AKINSIPE, [facility] [id number] Univers 15:00:00 16:04:50 MARITZA ity o [facility] 2022-05-12 2022-05-12 Outpatient R AKINSIPE, [facility] [id number] Univers 14:30:00 14:30:00 MARITZA ity o [facility] 2022-05-12 2022-05-12 Orders Doctor SAUD [id number] Univers 00:00:00 00:00:00 Only Unassigned, SHIRA 350.1.13.10 ity of [place] [facility] 4.2.7.2.686 Mehul as [id number] [address] 2022-05-03 2022-05-03 Office Akinsipe, [facility] [id number] Univers 14:30:00 15:32:36 Visit [facility] PUMP STATION OPERATOR 350.1.13.10 ity of [facility] 4.2.7.2.686 Mehul as MATERNAL [id number] [facility] & CHILD [address] [place] [address] 2022-05-03 2022-05-03 Outpatient R AKINSIPE, [facility] [id number] Univers 14:30:00 15:32:36 MARITZA ity o f [facility] 2022-05-03 2022-05-03 Outpatient R AKINSIPE, [facility] [id number] Univers 14:30:00 14:30:00 MARITZA ity o f [facility] 2022-05-03 2022-05-03 Outpatient R AKINSIPE, [facility] [id number] Univers 14:30:00 14:30:00 MARITZA ity o f [facility] 2022-05-03 2022-05-03 Outpatient R AKINSIPE, [facility] [id number] Univers 13:45:00 14:19:37 MARITZA ity o f [facility] 2022-05-03 2022-05-03 Nurse Nurse, Jv Rmchp Exp Cprit Obgyn U T[facility] [id number] Univers 13:45:00 14:19:37 Visit Maritza Weinstein PUMP STATION OPERATOR 350.1.13. 10 ity of [facility] 4.2.7.2.686 Mehul as MATERNAL [id number] [facility] & CHILD [address] [place] [address] 2022-05-03 2022-05-03 Outpatient R AKINSIPE, [facility] [id number] Univers 14:00:00 14:00:00 MARITZA martelly o [facility] 2022-04-29 2022-04-29 Telephone [facility] [id number] [facility] 00:00:00 00:00:00 Maritza Manzano PUMP STATION OPERATOR 350.1.13.10 ity of [facility] 4.2.7.2.686 Mehul as MATERNAL [id number] [facility] & [address] 2022-04-26 2022-04-26 Outpatient R AKINSIPE, [facility] [id number] Univers 09:45:00 09:45:00 MARITZA ity o [facility] 2022-04-26 2022-04-26 Outpatient R AKINSIPE, [facility] [id number] Univers 09:45:00 09:45:00 MARITZA ity o f [facility] 2022-04-26 2022-04-26 Outpatient R AKINSIPE, [facility] [id number] Univers 09:15:00 09:15:00 MARITZA ity o f [facility] 2022-04-26 2022-04-26 Outpatient R AKINSIPE, [facility] [id number] Univers 09:15:00 09:15:00 MARITZA ity o f [facility] 2022-04-26 2022-04-26 Outpatient R [facility] [id number] Univers 09:00:00 09:00:00 ity of [facility] 2022-04-05 2022-04-05 Outpatient R AKINSIPE, [facility] [id number] Univers 09:45:00 10:40:04 MARITZA ity o f [facility] 2022-04-05 2022-04-05 Routine [facility] [id number] Univers 09:45:00 10:40:04 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 350.1.13.10 ity of Visit REGIONAL 4.2.7.2.686 Mehul as MATERNAL [id number] [facility] ical & CHILD [address] [place] [address] 2022-03-11 2022-03-14 Inpatient P [facility] TASHIA [id number] Univers 18:15:00 17:00:00 ELIZABETH ity [facility] 2022-03-11 2022-03-14 Inpatient P [facility] TASHIA [id number] Univers 18:15:00 17:00:00 [facility] 2022-03-14 [facility] SAUD Russell [id number] Univers 18:15:00 17:00:00 Encounter Elizabeth SILVA 350.1.13.10 ity of [facility] 4.2.7.2.686 Mehul as [id number] [facility] [address] 2022-03-12 2022-03-13 Anesthesia Red lAex VILLAVICENCIO [id number] Univers 15:44:00 09:07:00 Event Sandie Lee 350.1.13.10 ity of [facility] 4.2.7.2.686 Mehul as [id number] [facility] [address] 2022-03-11 2022-03-11 Inpatient P [facility] TASHIA [id number] Univers 18:15:00 18:15:00 [facility] 2022-03-11 2022-03-11 Telephone [facility] [id number] [id number] Univers 00:00:00 00:00:00 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 350.1.13.10 ity of [facility] 4.2.7.2.686 Mehul as MATERNAL [id number] [facility] & CHILD [address] [place] [address] 2022-03-08 2022-03-08 Outpatient R AKINSIPE, [facility] [id number] Univers 10:30:00 11:08:01 MARITZA martelly o [facility] 2022-03-08 2022-03-08 Routine Akinsipe, [facility] [id number] Univers 10:30:00 11:08:01 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 350.1.13.10 ity of Visit [facility] [facility] [id number] Mehul as MATERNAL [phone] [facility] ical & CHILD [address] [place] [address] 2022-03-08 2022-03-08 Outpatient R AKINSIPE, [facility] [id number] Univers 10:30:00 11:08:01 MARITZA gerber o [facility] 2022-03-08 2022-03-08 [facility], [facility] [id number] Univers 10:30:00 10:30:00 MARITZA jasbirjia o [facility] 2022-03-08 2022-03-08 Orders Doctor SAUD 1.2.840.114 [id number] Univers 00:00:00 00:00:00 Only Unassigned, SHIRA 350.1.13.10 ity of [place] [facility] 4.2.7.2.686 Mehul as [phone] [address] 2022-03-02 2022-03-02 Telephone [facility] 1.2.840.114 [id number] Univers 00:00:00 00:00:00 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 350.1.13.10 ity of [facility] 4.2.7.2.686 Mehul as MATERNAL [id number] [facility] ical & CHILD [address] [place] [address] 2022-03-01 2022-03-01 Outpatient R AKINSIPE, [facility] [id number] Univers 08:00:00 08:50:00 MARITZA ity o [facility] 2022-03-01 2022-03-01 [facility] 1.2.960.785 [id number] Univers 08:00:00 08:50:00 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 350.1.13.10 ity of Visit REGIONAL 4.2.7.2.686 Mehul as MATERNAL [phone] [facility] & CHILD [address] [place] [address] 2022-03-01 2022-03-01 Outpatient R AKINSIPE, [facility] [id number] Univers 08:00:00 08:50:00 MARITZA ity o f [facility] 2022-03-01 2022-03-01 Outpatient R AKINSIPE, [facility] [id number] Univers 08:00:00 08:00:00 MARITZA ity o f [facility] 2022-02-22 2022-02-22 Outpatient R AKINSIPE, [facility] [id number] Univers 10:45:00 11:42:09 MARITZA ity o f [facility] 2022-02-22 2022-02-22 Routine Akinsipe, [facility] 1.2.393.772 [id number] Univers 10:45:00 11:42:09 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 350.1.13.10 ity of Visit REGIONAL 4.2.7.2.686 Mehul as MATERNAL [phone] [facility] & CHILD [address] [place] [address] 2022-02-22 2022-02-22 Outpatient R AKINSIPE, [facility] [id number] Univers 10:45:00 10:45:00 MARITZA ity o f [facility] 2022-02-08 2022-02-08 Outpatient R AKINSIPE, [facility] [id number] Univers 08:00:00 09:11:24 MARITZA ity o f [facility] 2022-02-08 2022-02-08 Routine Akinsipe, [facility] 1.2.840.100 [id number] Univers 08:00:00 09:11:24 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 350.1.13.10 ity of Visit REGIONAL 4.2.7.2.686 Mehul as MATERNAL [phone] [facility] [address] [place] [address] 2022-01-25 2022-01-25 Outpatient R AKINSIPE, [facility] [id number] Univers 09:45:00 10:20:19 MARITZA ity o f [facility] 2022-01-25 2022-01-25 Routine Akinsipe, [facility] 1.2.221.648 [id number] Univers 09:45:00 10:20:19 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 350.1.13.10 ity of Visit REGIONAL 4.2.7.2.686 Mehul as MATERNAL [id number] [facility] [address] [place] [address] 2022-01-11 2022-01-11 Outpatient R AKINSIPE, [facility] [id number] Univers 08:00:00 09:08:44 MARITZA ity o f [facility] 2022-01-11 2022-01-11 Routine Akinsipe, [facility] 1.2.287.348 [id number] Univers 08:00:00 09:08:44 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 350.1.13.10 ity of Visit REGIONAL 4.2.7.2.686 Mehul as MATERNAL [id number] [facility] & CHILD [address] [place] [address] 2021-12-29 2021-12-29 Telephone Akinsipe, [facility] 1.2.840.114 [id number] Univers 00:00:00 00:00:00 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 350.1.13.10 ity of REGIONAL 4.2.7.2.686 Mehul as MATERNAL [id number] [facility] & CHILD [address] [place] [address] 2021-12-28 2021-12-28 Outpatient R AKINSIPE, [facility] [id number] Univers 12:45:00 13:28:14 MARITZA ity o f [facility] 2021-12-28 2021-12-28 Routine Akinsipe, [facility] 1.2.182.690 [id number] Univers 12:45:00 13:28:14 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 350.1.13.10 ity of Visit REGIONAL 4.2.7.2.686 Mehul as MATERNAL [id number] [facility] [address] [place] [address] 2021-12-28 2021-12-28 Outpatient R AKINSIPE, [facility] [id number] Univers 12:45:00 13:28:14 MARITZA ity o f [facility] 2021-12-22 2021-12-22 Outpatient R AKINSIPE, [facility] [id number] Univers 11:00:00 11:00:00 MARITZA martelly o f [facility] 2021-12-22 2021-12-22 Outpatient R AKINSIPE, [facility] [id number] Univers 11:00:00 11:00:00 MARITZA martelly o f [facility] 2021-12-22 2021-12-22 Refill Js, [facility] 1.2.172.337 [id number] Univers 00:00:00 00:00:00 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 350.1.13.10 ity of REGIONAL 4.2.7.2.686 Mehul as MATERNAL [id number] [facility] [address] [place] [address] 2021-12-15 2021-12-15 Form [facility] 1.2 .840.114 [id number] Univers 09:00:00 10:00:00 Visit Nixon Perrylissyaugustine PUMP STATION OPERATOR 350.1. 13.10 ity of REGIONAL 4.2.7.2.686 Mehul as MATERNAL [id number] [facility] ical & CHILD [address] [facility] 2021-12-15 2021-12-15 Outpatient P ORLANDO, [facility] [id number] Univers 09:00:00 09:00:00 NIXON ity [facility] 2021-12-15 2021-12-15 [facility] 1.2.840.114 [id number] Univers 00:00:00 00:00:00 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 350.1.13.10 ity of [facility] 4.2.7.2.686 Mehul as MATERNAL [id number] [facility] & CHILD [address] [place] [address] 2021-12-08 2021-12-08 Outpatient R AKINSIPE, [facility] [id number] Univers 08:00:00 09:10:04 MARITZA ity o last [facility] 2021-12-08 2021-12-08 Routine [facility] 1.2.582.285 [id number] Univers 08:00:00 09:10:04 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 350.1.13.10 ity of Visit REGIONAL 4.2.7.2.686 Mehul as MATERNAL [phone] [facility] & [address] 2021-11-10 2021-11-10 Outpatient R JS [facility] [id number] Univers 09:45:00 10:37:07 MARITZA ity o f [facility] 2021-11-10 2021-11-10 Routine [facility], [facility] 1.2.004.439 [id number] Univers 09:45:00 10:37:07 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 350.1.13.10 ity of Visit REGIONAL 4.2.7.2.686 Mehul as MATERNAL [phone] [address] 2021-11-08 2021-11-08 Form [facility] 1. .840.114 [id number] Univers 08:45:00 09:44:02 Visit Renetta Tejeda PUMP STATION OPERATOR 350.1.13.10 ity of REGIONAL 4.2.7.2.686 Mehul as MATERNAL [phone] [facility] & [address] 2021-11-08 2021-11-08 Outpatient P [facility] [id number] Univers 08:45:00 08:45:00 ity [facility] 2021-11-08 2021-11-08 Outpatient P PRAVEEN [facility] [id number] Univers 08:45:00 08:45:00 RENETTA ity [facility] 2021-11-08 2021-11-08 Abstract [facility] 1.2.840.114 [id number] Univers 00:00:00 00:00:00 Amritza C PUMP STATION OPERATOR 350.1.13.10 ity of REGIONAL 4.2.7.2.686 Mehul as MATERNAL [id number] [facility] & [address] 2021-10-13 2021-10-13 Routine [facility] 1.2.054.717 [id number] Univers 08:15:00 09:10:51 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 350.1.13.10 ity of Visit [facility] 4.2.7.2.686 Meuhl as MATERNAL [id number] [facility] & [address] 2021-10-13 2021-10-13 Outpatient R [facility] [id number] Univers 08:15:00 09:10:51 MARITZA ity o [facility] 2021-10-13 2021-10-13 [facility] [id number] Univers 08:15:00 08:15:00 MARITZA ity o [facility] 2021-10-13 2021-10-13 [facility] [id number] Univers 08:15:00 08:15:00 MARITZA ity o [facility] 2021-09-29 2021-09-29 Orders Doctor SAUD 1.2.840.114 [id number] Univers 00:00:00 00:00:00 Only Unassigned, SHIRA 350.1.13.10 ity of [place] [facility] 4.2.7.2.686 Mehul as [phone] [address] 2021-09-28 2021-09-28 Telephone [facility] 1.2.840.114 [id number] Univers 00:00:00 00:00:00 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 350.1.13.10 ity of [facility] 4.2.7.2.686 Mehul as MATERNAL [id number] [facility] & [address] 2021-09-17 2021-09-17 Outpatient R BAILEY PEDERSEN [facility] [id number] Univers 10:30:00 10:30:00 BAILEY PEDERSEN [facility] 2021-09-17 2021-09-17 Form Layer Lab, [facility] 1.2.840. 114 [id number] Univers 10:30:00 10:30:00 Visit Bailey Pedersen PUMP STATION OPERATOR 350.1.13.10 ity of REGIONAL 4.2.7.2.686 Mehul as MATERNAL [phone] Med ical & CHILD 125 [facility] 2021-09-17 2021-09-17 Form Layer Vahe Oden Room [facility] 1.2. 840.114 [id number] Univers 09:45:00 10:30:00 Visit Bailey Pedersen PUMP STATION OPERATOR 350.1.13.10 ity of REGIONAL 4.2.7.2.686 Mehul as MATERNAL [phone] Med ical & CHILD 369 [facility] 2021-09-17 2021-09-17 Outpatient P [facility] [id number] Univers 09:45:00 09:45:00 ity of [facility] 2021-09-17 2021-09-17 [facility] 1.2.840.114 [id number] Univers 00:00:00 00:00:00 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 350.1.13.10 ity of REGIONAL 4.2.7.2.686 Mehul as MATERNAL [phone] [facility] ical & CHILD [address] [place] [address] 2021-09-17 2021-09-17 Abstract Js, [facility] 1.2.840.114 [id number] Univers 00:00:00 00:00:00 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 350.1.13.10 ity of REGIONAL 4.2.7.2.686 Mehul as MATERNAL [id number] [facility] ical & CHILD [address] [place] [address] 2021-09-15 2021-09-15 Outpatient R JS [facility] [id number] Univers 10:45:00 11:30:06 MARITZA ity o f [facility] 2021-09-15 2021-09-15 Routine [facility] 1.2.442.665 [id number] Univers 10:45:00 11:30:06 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 350.1.13.10 ity of Visit REGIONAL 4.2.7.2.686 Mehul as MATERNAL [id number] [facility] ical & CHILD [address] [place] [address] 2021-09-15 2021-09-15 [facility] [id number] Univers 10:45:00 10:45:00 MARITZA gerber o last [facility] 2021-08-23 2021-08-23 [facility] 1.2.840.114 [id number] Univers 00:00:00 00:00:00 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 350.1.13.10 ity of [facility] 4.2.7.2.686 Mehul as MATERNAL [id number] [facility] & [address] 2021-08-18 2021-08-18 [facility] [id number] Univers 08:30:00 10:01:03 MARITZA li [facility] 2021-08-18 2021-08-18 [facility] [id number] Univers 08:30:00 10:01:03 MARITZA jasbirjia o [facility] 2021-08-18 2021-08-18 Initial [facility] 1.2.041.126 [id number] Univers 08:30:00 10:01:03 Maritza Manzano PUMP STATION OPERATOR 350.1.13.10 ity of Visit [facility] 4.2.7.2.686 Mehul as MATERNAL [id number] [facility] & [address] 2021-08-18 2021-08-18 Orders Doctor SAUD 1.2.840.114 [id number] Univers 00:00:00 00:00:00 Only Unassigned, SHIRA 350.1.13.10 ity of [place] [facility] 4.2.7.2.686 Mehul as [phone] [facility] [address] 2020-02-10 2020-02-10 Emergency Teagan Lofton [facility] 1.2.840.114 [id number] Univers 13:43:29 18:40:00 Akanksha [place] 350.1.13.10 i ty of [place]2.7.2.[place] [id number] [facility] [address] 2020-02-10 2020-02-10 Emergency X Teagan LOFTON [facility] ERT [id number] Univers 13:43:29 18:40:00 ity of [facility] Results Test Description Test Time Test Comments Results Result Comments Source POCT TEST 2022-05-12 20:35:00 Test Item Value Reference Range Interpretation Comme nts POCT PREG (test code = 1605) Negative On board controls acceptable with C Line (test code = 3574) Yes POCT PREG LOT # (test code = 3575) POCT PREG TEST DATE (test code = 3576) [facility]
[2023-05-09 13:21] LABS: Specific Gravity > 1.030 (1.005-1.030); Urine Bacteria >50 /HPF (<20); Urine Bilirubin 1+ (Negative); Urine Blood Negative (Negative); Urine Clarity Extremely Turbid (Clear); Urine Color Dark-Yellow (Yellow); Urine Glucose NEGATIVE (Negative); Urine Mucus 1+ /HPF (None Seen); Urine Protein TRACE (Negative); Urine Urobilinogen 2+ (Normal); Urine WBC Clump Few /HPF (None Seen)
[2023-05-09 13:32] LABS: Specific Gravity > 1.030 (1.005-1.030)
--- NOTE | 2023-05-09 14:23 | RAD REPORT ---
EXAM DESCRIPTION: CT - Stone Protocol - 05/09/2023 1:47 pm CLINICAL HISTORY: Abdominal pain./flank pain COMPARISON: 2013 TECHNIQUE: Computed axial tomography of the abdomen pelvis was obtained without oral or IV contrast. Lack of IV and oral contrast limits evaluation of solid organs, appendix, bowel, and vessels. Smith l reformatted images were obtained and reviewed. All CT scans are performed using dose optimization technique as appropriate and may include automated exposure control or mA/KV adjustment according to patient size. FINDINGS: Some of the images are degraded by patient motion artifact A renal calculus is not seen. An ureteral calculus is not noted. A bladder calculus is not present. N o hydronephrosis The liver, spleen, pancreas and adrenals appear grossly normal There is no evidence of diverticulitis. No adnexal mass. Postsurgical changes involve the stomach Moderate amount stool within the colon IMPRESSION: Negative for a genitourinary calculus
[2023-05-09] MEDS ORDERED: CEFTRIAXONE 1000 MG/VIAL ONE (14:48)
[2023-05-09] MEDS ORDERED: LIDOCAINE 1% MPF 2 ML AMPULE ONE (14:48)
--- NOTE | 2023-05-09 14:49 | EDPHYS ---
Physician Documentation [facility] Name: Lauren Rizo Age: 33 yrs Sex: Female : 1990 Arrival Date: 05/09/2023 Time: 11:28 Bed 11 Private MD: ED Physician Rick Hall HPI: 05/09 14:58 This 33 yrs old Female presents to ER via Ambulatory with complaints of Back snw Pain, Pain With Urination. 14:59 The patient complains of pain in the right mid back. The pain does not radiate. Onset: snw The symptoms/episode began/occurred acutely. Severity of pain: At its worst the pain was moderate. lap band surgery 4 months ago. Historical: - Allergies: 12:04 No Known Drug Allergies; hb - Immunization history:: Adult Immunizations up to date. - Social history:: Smoking status: Patient denies any tobacco usage or history of. ROS: 14:57 Eyes: Negative for injury, pain, redness, and discharge, ENT: Negative for injury, snw pain, and discharge, Neck: Negative for injury, pain, and swelling, Cardiovascular: Negative for chest pain, palpitations, and edema, Respiratory: Negative for shortness of breath, cough, wheezing, and pleuritic chest pain. 14:57 MS/Extremity: Negative for injury and deformity, Skin: Negative for injury, rash, and discoloration, Psych: Negative for depression, anxiety, suicide ideation, homicidal ideation, and hallucinations. 14:57 Constitutional: Positive for body aches, malaise, poor PO intake. 14:57 Abdomen/GI: Positive for abdominal pain, nausea. 14:57 Back: Positive for flank pain. 14:57 : Positive for urinary symptoms, burning with urination. 14:57 Neuro: Positive for dizziness. Exam: 14:52 Constitutional: This is a well developed, well nourished patient who is awake, alert, snw and in no acute distress. Head/Face: Normocephalic, atraumatic. Eyes: Pupils equal round and reactive to light, extra-ocular motions intact. Lids and lashes normal. Conjunctiva and sclera are non-icteric and not injected. Cornea within normal limits. Periorbital areas with no swelling, redness, or edema. ENT: Nares patent. No nasal discharge, no septal abnormalities noted. Tympanic membranes are normal and external auditory canals are clear. Oropharynx with no redness, swelling, or masses, exudates, or evidence of obstruction, uvula midline. Mucous membranes moist. Neck: Trachea midline, no thyromegaly or masses palpated, and no cervical lymphadenopathy. Supple, full range of motion without nuchal rigidity, or vertebral point tenderness. No Meningismus. Chest/axilla: Normal chest wall appearance and motion. Nontender with no deformity. No lesions are appreciated. Cardiovascular: Regular rate and rhythm with a normal S1 and S2. No gallops, murmurs, or rubs. Normal PMI, no JVD. No pulse deficits. Respiratory: Lungs have equal breath sounds bilaterally, clear to auscultation and percussion. No rales, rhonchi or wheezes noted. No increased work of breathing, no retractions or nasal flaring. Abdomen/GI: Soft, non-tender, with normal bowel sounds. No distension or tympany. No guarding or rebound. No evidence of tenderness throughout. Back: No spinal tenderness. No costovertebral tenderness. Full range of motion. Skin: Warm, dry with normal turgor. Normal color with no rashes, no lesions, and no evidence of cellulitis. MS/ Extremity: Pulses equal, no cyanosis. Neurovascular intact. Full, normal range of motion. Neuro: Awake and alert, GCS 15, oriented to person, place, time, and situation. Cranial nerves II-XII grossly intact. Motor strength 5/5 in all extremities. Sensory grossly intact. Cerebellar exam normal. Normal gait. Psych: Awake, alert, with orientation to person, place and time. Behavior, mood, and affect are within normal limits. Vital Signs: 12:03 BP 120 / 68; Pulse 60; Resp 16; Temp 98.9(TE); Pulse Ox 100% on R/A; Weight 76.2 kg; hb Height 5 ft. 5 in. ; Pain 7/10; 14:33 BP 114 / 64; Pulse 61; Resp 16; Pulse Ox 100% on R/A; mb9 12:03 Body Mass Index 27.96 (76.20 kg, 165.1 cm) hb 12:03 Pain Scale: Adult hb MDM: 13:23 Patient medically screened. snw 14:52 Differential diagnosis: Fatigue Hydronephrosis uti, pyelo,stone. Data reviewed: vital snw signs, nurses notes, lab test result(s), radiologic studies. I considered the following discharge prescriptions or medication management in the emergency department Medications were administered in the Emergency Department. See MAR. Counseling: I had a detailed discussion with the patient and/or guardian regarding the historical points, exam findings, and any diagnostic results supporting the discharge/admit diagnosis, lab results, radiology results, the need for outpatient follow up, for definitive care, to return to the emergency department if symptoms worsen or persist or if there are any questions or concerns that arise at home. Special discussion: Based on the patient's Hx, exam, and Dx evaluation, there is no indication for emergent surgery or inpatient Tx. It is understood by the patient/guardian that if the Sx's persist or worsen they need to return immediately for re-evaluation. Based on the history and exam findings, there is no indication for further emergent testing or inpatient evaluation. I discussed with the patient/guardian the need to see the primary care provider for further evaluation of the symptoms. 14:56 ED course: lap band placed 4 months sgo. snw 05/09 11:45 Order name: Urine W/Microscopic (UAM); Complete Time: 13:23 snw 05/09 13:24 Order name: Urine Culture EDMS 05/09 13:24 Order name: PREGU; Complete Time: 13:37 snw 05/09 13:24 Order name: CT Stone Protocol; Complete Time: 14:26 snw Administered Medications: 14:40 Drug: Rocephin (cefTRIAXone) IM 1 grams Route: IM; Site: left gluteus; mb9 14:55 Follow up: Response: No adverse reaction mb9 Disposition: 15:25 Co-signature as Attending Physician, Rick Hall MD I reviewed the patient's care rn provided by the Advanced Practice Provider and agree with the diagnosis and treatment plan. Disposition Summary: 05/09/23 14:49 Discharge Ordered Location: Home snw Condition: Stable snw Diagnosis - UTI/ Urinary tract infection, site not specified snw - Constipation snw Followup: snw - With: Emergency Department - When: As needed - Reason: Worsening of condition Followup: snw - With: Private Physician - When: 2 - 3 days - Reason: Recheck today's complaints, Continuance of care, Re-evaluation by your physician Discharge Instructions: - Discharge Summary Sheet snw - Constipation, Adult snw - Urinary Tract Infection, Adult snw - Rehydration, Adult snw Forms: - Work release form snw - Medication Reconciliation Form snw - Thank You Letter snw - Antibiotic Education snw - Prescription Opioid Use snw - Patient Portal Instructions snw - Leadership Thank You Letter snw Prescriptions: - Miralax 17 gram/dose Oral powder - take 17 gram by ORAL route daily; 1 Unspecified; Refills: 0, Product Selection snw Permitted - Augmentin 875-125 mg Oral Tablet - take 1 tablet by ORAL route every 12 hours for 10 days; 20 tablet; Refills: 0, snw Product Selection Permitted - promethazine 25 mg Oral Tablet - take 1 tablet by ORAL route every 6 hours As needed; 20 tablet; Refills: 0, snw Product Selection Permitted Signatures: Dispatcher [employer] EDMS Leatha Womack, STONE DECORATOR-C STONE DECORATOR-Csnw Rick Hall MD MD rn Baxter, Heather RN RN Carmen Harkins, RN RN mb9
--- NOTE | 2023-05-09 14:49 | ER ---
Nurse's Notes [facility] Name: Lauren Rizo Age: 33 yrs Sex: Female : 1990 Arrival Date: 05/09/2023 Time: 11:28 Bed 11 Private MD: Diagnosis: UTI/ Urinary tract infection, site not specified;Constipation Presentation: 05/09 12:03 Chief complaint: Right flank pain, pain with urination, abdominal pain, nausea, and hb dizziness x 2 weeks. Coronavirus screen: At this time, the client does not indicate any symptoms associated with coronavirus-19. Ebola Screen: No symptoms or risks identified at this time. Initial Sepsis Screen: Does the patient meet any 2 criteria? No. Patient's initial sepsis screen is negative. Does the patient have a suspected source of infection? No. Patient's initial sepsis screen is negative. Risk Assessment: Do you want to hurt yourself or someone else? Patient reports no desire to harm self or others. Onset of symptoms was April 2023. 12:03 Method Of Arrival: Ambulatory hb 12:03 Acuity: CHRIS 3 hb Historical: - Allergies: 12:04 No Known Drug Allergies; hb - Immunization history:: Adult Immunizations up to date. - Social history:: Smoking status: Patient denies any tobacco usage or history of. Screenin:27 [facility] ED Fall Risk Assessment (Adult) History of falling in the last 3 months, mb9 including since admission No falls in past 3 months (0 pts) Confusion or Disorientation No (0 pts) Intoxicated or Sedated No (0 pts) Impaired Gait No (0 pts) Mobility Assist Device Used No (0 pt) Altered Elimination No (0 pt) Score/Fall Risk Level 0 - 2 = Low Risk Oriented to surroundings, Maintained a safe environment, Educated pt \T\ family on fall prevention, incl call for assistance when getting out of bed. Abuse screen: Denies threats or abuse. Nutritional screening: No deficits noted. Tuberculosis screening: No symptoms or risk factors identified. Assessment: 14:27 Reassessment: pt brought back to ER 11. mb9 14:33 General: Appears in no apparent distress. Behavior is calm, cooperative. Pain: mb9 Complains of pain in back Pain radiates to right flank Quality of pain is described as throbbing. Neuro: Hurd Agitation-Sedation Scale (RASS): 0 - Alert and Calm Level of Consciousness is awake, alert, obeys commands, Oriented to person, place, time, situation, Appropriate for age. Cardiovascular: Patient's skin is warm and dry. Respiratory: Airway is patent Respiratory effort is even, unlabored, Respiratory pattern is regular, symmetrical. GI: Reports nausea. : Reports burning with urination. EENT: No signs and/or symptoms were reported regarding the EENT system. Derm: Skin is pink, warm \T\ dry. Musculoskeletal: Range of motion: intact in all extremities. Vital Signs: 12:03 BP 120 / 68; Pulse 60; Resp 16; Temp 98.9(TE); Pulse Ox 100% on R/A; Weight 76.2 kg; hb Height 5 ft. 5 in. ; Pain 7/10; 14:33 BP 114 / 64; Pulse 61; Resp 16; Pulse Ox 100% on R/A; mb9 12:03 Body Mass Index 27.96 (76.20 kg, 165.1 cm) hb 12:03 Pain Scale: Adult hb ED Course: 11:30 Patient arrived in ED. rg4 11:44 Leatha Womack FNP-C is PHCP. snw 11:44 Rick Hall MD is Attending Physician. snw 12:04 Triage completed. hb 13:04 Urine W/Microscopic (UAM) Sent. bc6 13:48 CT Stone Protocol In Process Unspecified. EDMS 14:27 Arm band placed on. mb9 14:28 Carmen Harkins, RN is Primary Nurse. mb9 14:28 No provider procedures requiring assistance completed. mb9 14:28 Placed in gown. Bed in low position. Call light in reach. Side rails up X 1. Client mb9 placed on continuous cardiac and pulse oximetry monitoring. NIBP monitoring applied. 14:55 Patient did not have IV access during this emergency room visit. mb9 Administered Medications: 14:40 Drug: Rocephin (cefTRIAXone) IM 1 grams Route: IM; Site: left gluteus; mb9 14:55 Follow up: Response: No adverse reaction mb9 Medication: 14:28 VIS not applicable for this client. mb9 Outcome: 14:49 Discharge ordered by . snw 15:05 Discharged to home ambulatory. mb9 15:05 Condition: stable 15:05 Discharge instructions given to patient, Instructed on discharge instructions, follow up and referral plans. Demonstrated understanding of instructions, follow-up care, medications, Prescriptions given X 3. 15:05 Patient left the ED. mb9 Signatures: Dispatcher [employer] EDMS Leatha Womack, MACHINE WHITENER-C MACHINE WHITENER-Csnw Naheed Moreau, RN Sarahy Leonardo rg4 Carmen Harkins RN RN mb9 Whit Shen 6
[2023-05-09 15:09] VITALS: TEMP 98.9; O2SAT 100
[2023-05-09 15:10] VITALS: BP 114/64
== END 2023-05-09 15:05 | disposition home or self-care (01) ==
LOC: ER 11:28
DX: N39.0 Urinary tract infection, site not specified (principal); K59.00 Constipation, unspecified
CPT/HCPCS: 87088; 81001; 87086; 81025; 76377; 74176; 96372; 99284; J0696

== ENCOUNTER 2023-06-21 11:04 | Emergency (ER) | payer OTHER ==
--- OUTSIDE RECORDS SUMMARY | 2023-06-21 11:07 | XMS REPORT | Continuity of Care Document ---
:1990 Author Organization [facility] t Address [address] [facility]. [address] [place] [address] Care Team Providers Name Role Phone MARITZA WEINSTEIN Primary Care Physician Unavailable VIKRAM GLASS Attending Clinician Unavailable MARITZA WEINSTEIN Attending Clinician Unavailable SIMRAN SANCHEZ Attending Clinician Unavailable UNKNOWN, ATTENDING Attending Clinician Unavailable NurseJv Exp Cprit Obgyn Attending Clinician Unavail able Maritza Mendoza Attending Clinician [phone] LAVELLE ACEVEDO Attending Clinician Unavailable Doctor Unassigned, [place] Attending Clinician Unavailable EVIE ALEJANDRE Attending Clinician Unavailable ELIZABETH RUSSELL Attending Clinician Unavailable Elizabeth Russell DO Attending Clinician Alex Moon MD Attending Clinician Sandie Lee MD Attending Clinician Ultrasound, Ang-Mfm Attending Clinician Unavailable Nixon Perry MD Attending Clinician [phone] NIXON PERRY Attending Clinician Unavailable Renetta Tejeda [...] Expiration Date Beverly biggs [employer]ET[employer] 2 [id number] 2023 MARKETPLACE 00:00:00 FAMILY PLANNING [id number] 2022 RUDOLPH 0-100% 00:00:00 AMERIGROUP MOM CHIP [id number] 2021 BHARGAVI LOW FPL 00:00:00 TMHP TP30 EMERGENCY [id number] 2022 2022 MEDICAID 00:00:00 00:00:00 CHIP BHARGAVI LOW PENDING 2022 2022 FPL-PENDING TP30 00:00:00 00:00:00 MEDICAID Problems Condition Condition Condition Status Onset Resolution Last Treating Co mments Source Name Details Category Date Date Treatment Clinician Date Nexplanon Nexplanon Disease Active Uni vers insertion insertion 9 ity of 00:00: [place] 00 [facility] Branch Nexplanon Nexplanon Disease Active Uni vers removal removal 05-12 ity of 00:00: [place] 00 [facility] Branch Other Other Disease Active Univers general general 8-30 [place] of [place] 00 [facility] contracept contracept bandar bandar management management Gestationa Gestationa Disease Active U nivers l l 7-11 ity of hypertens[place]ens[place] Anemia, Anemia, Disease Active Univers unspecifie unspecifie 4-27 it y of d d 00:00: 00 Medical Branch Yeast Yeast Disease Active Univers infection infection 4-26 ity of of the of the 00:00: [place] vagina vagina 00 Medical Branch Obesity Obesity Disease Active 2020-09 Univers (BMI (BMI 2-15 ity of 30-39.9) 30-39.9) 00:00: 00 Medical Branch Pain Pain Disease Active Univers pelvic pelvic 09-05 ity of 00:00: [place] [address] Medical [place] History of History of Disease Active Overview [...] Active Univers ALLERGIE Class ity of S [facility] Social History Social Habit Start Date Stop Date Quantity Comments Source Exposure to 2022-09-25 2022-10-05 [facility] [place] [facility]19[facility]00 [facility] [place] [facility] (event) [place] Alcohol intake 2022-10-05 2022-10-05 Current University 00:00:00 00:00:00 non-drinker of [facility] alcohol (finding) [place] Tobacco use and 2022-04-05 2022-04-05 Smokeless tobacco Un iversity of exposure 00:00:00 00:00:00 non-user [facility] Sex Assigned At [birth year] Universit y of 00:00:00 00:00:00 [facility] Smoking Status Start Date Stop Date Source Never smoked tobacco [facility] Medications Ordered Filled Start Stop Current Ordering Indication Dosage Frequency Signature Comments Components Source Medication Medication Date Date Medication? Clinician (SIG) Name Name etonogestre 2021- No [id number] 68mg Univers L 05-12 ity of (NEXPLANON) 22:00: 21:09 [place] implant 68 00 :00 Medical mg Branch etonogestre 2021- No [id number] 68mg 68 mg, Univers L 05-12 Subdermal, ity of (NEXPLANON) 22:00: 21:09 ONCE NOW, [place] implant 68 00 :00 1 dose, On Med ical mg Jia 05/12/22 Branch at 1700, Routine
Use approved by: PRESCHOOL AIDE Yes [id number] 1{tbl} Take 1 Univers [id number] 7-11 tablet by ity of fum-folic 00:00: mouth [place] () 00 daily. Medical 27 mg iron- Branch 1 mg folic tablet docusate Yes [id number] 200mg Take 2 U nivers 100 mg 7-11 capsules ity of capsule 00:00: by mouth [place] 00 once daily Medical as needed Branch for Constipati on. ferrous Yes [id number] 325mg Take 1 Un trupti sulfate 325 7-11 tablet by ity of mg (65 mg 00:00: mouth 2 [place] iron) 00 (two) Medical tablet times Branch daily. ibuprofen Yes [id number] 600mg Take 1 Univers 600 mg 7-11 tablet by ity of tablet 00:00: mouth [place] 00 every 6 Medical (six) Branch hours as needed (Pain). Take with food or milk. Yes [id number] 1{tbl} Take 1 Univers [id number] 7-11 tablet by ity of fum-folic 00:00: mouth [place] () 00 daily. Medical 27 mg iron- Branch 1 mg folic tablet docusate Yes [id number] 200mg Take 2 U nivers 100 mg 7-11 capsules ity of capsule 00:00: by mouth [place] 00 once daily Medical as needed Branch for Constipati on. ferrous Yes [id number] 325mg Take 1 Un trupti sulfate 325 7-11 tablet by ity of mg (65 mg 00:00: mouth 2 [place] iron) 00 (two) Medical tablet times Branch daily. ibuprofen Yes [id number] 600mg Take 1 Univers 600 mg 7-11 tablet by ity of tablet 00:00: mouth [place] 00 every 6 Medical (six) Branch hours as needed (Pain). Take with food or milk. Yes [id number] 1{tbl} Take 1 Univers [id number] 7-11 tablet by ity of fum-folic 00:00: mouth [place] () 00 daily. Medical 27 mg iron- Branch 1 mg folic tablet docusate Yes [id number] 200mg Take 2 U nivers 100 mg 7-11 capsules ity of capsule 00:00: by mouth [place] 00 once daily Medical as needed Branch for Constipati on. ferrous Yes [id number] 325mg Take 1 Un trupti sulfate 325 7-11 tablet by ity of mg (65 mg 00:00: mouth 2 [place] iron) 00 (two) Medical tablet times Branch daily. ibuprofen 2021-0 Yes [id number] 600mg Take 1 Univers 600 mg 7-11 tablet by ity of tablet 00:00: mouth [place] 00 every 6 Medical (six) Branch hours as needed (Pain). Take with food or milk. 2021-0 Yes [id number] 1{tbl} Take 1 Univers [id number] 7-11 tablet by ity of fum-folic 00:00: mouth [place] () 00 daily. Medical 27 mg iron- Branch 1 mg folic tablet docusate 0 Yes [id number] 200mg Take 2 U nivers 100 mg 7-11 capsules ity of capsule 00:00: by mouth [place] 00 once daily Medical as needed Branch for Constipati on. ferrous 0 Yes [id number] 325mg Take 1 Un trupti sulfate 325 7-11 tablet by ity of mg (65 mg 00:00: mouth 2 [place] iron) 00 (two) Medical tablet times Branch daily. ibuprofen 0 Yes [id number] 600mg Take 1 Univers 600 mg 7-11 tablet by ity of tablet 00:00: mouth [place] 00 every 6 Medical (six) Branch hours as needed (Pain). Take with food or milk. 2021-0 Yes [id number] 1{tbl} Take 1 Univers [id number] 7-11 tablet by ity of fum-folic 00:00: mouth [place] () 00 daily. Medical 27 mg iron- Branch 1 mg folic tablet docusate 0 Yes [id number] 200mg Take 2 U nivers 100 mg 7-11 capsules ity of capsule 00:00: by mouth [place] 00 once daily Medical as needed Branch for Constipati on. ferrous 2021-0 Yes [id number] 325mg Take 1 Un trupti sulfate 325 7-11 tablet by ity of mg (65 mg 00:00: mouth 2 [place] iron) 00 (two) Medical tablet times Branch daily. ibuprofen 2021-0 Yes [id number] 600mg Take 1 Univers 600 mg 7-11 tablet by ity of tablet 00:00: mouth [place] 00 every 6 Medical (six) Branch hours as needed (Pain). Take with food or milk. 2021-0 Yes [id number] 1{tbl} Take 1 Univers [id number] 7-11 tablet by ity of fum-folic 00:00: mouth [place] () 00 daily. Medical 27 mg iron- Branch 1 mg folic tablet docusate Yes [id number] 200mg Take 2 U nivers 100 mg 7-11 capsules ity of capsule 00:00: by mouth [place] 00 once daily Medical as needed Branch for Constipati on. ferrous Yes [id number] 325mg Take 1 Un trupti sulfate 325 7-11 tablet by ity of mg (65 mg 00:00: mouth 2 [place] iron) 00 (two) Medical tablet times Branch daily. ibuprofen Yes [id number] 600mg Take 1 Univers 600 mg 7-11 tablet by ity of tablet 00:00: mouth [place] 00 every 6 Medical (six) Branch hours as needed (Pain). Take with food or milk. Yes [id number] 1{tbl} Take 1 Univers [id number] 7-11 tablet by ity of fum-folic 00:00: mouth [place] () 00 daily. Medical 27 mg iron- Branch 1 mg folic tablet docusate Yes [id number] 200mg Take 2 U nivers 100 mg 7-11 capsules ity of capsule 00:00: by mouth [place] 00 once daily Medical as needed Branch for Constipati on. ferrous Yes [id number] 325mg Take 1 Un trupti sulfate 325 7-11 tablet by ity of mg (65 mg 00:00: mouth 2 [place] iron) 00 (two) Medical tablet times Branch daily. ibuprofen Yes [id number] 600mg Take 1 Univers 600 mg 7-11 tablet by ity of tablet 00:00: mouth [place] 00 every 6 Medical (six) Branch hours as needed (Pain). Take with food or milk. Vital Signs Vital Name Observation Time Observation Value Comments Source Body temperature 2022-10-05 21:20:00 36.44 [facility] Body weight 2022-10-05 21:20:00 98.93 kg [facility] BMI 2022-10-05 21:20:00 39.89 kg/m2 [facility] Systolic blood 2022-06-16 20:59:00 128 mm[Hg] [facility] sity of pressure [place] [facility] Diastolic blood 2022-06-16 20:59:00 79 mm[Hg] Unive rsity of pressure [place] [facility] Heart rate 2022-06-16 20:59:00 79 /min Universi ty of [place] [facility] Body temperature 2022-06-16 20:59:00 36.11 Cha Univ ersity of [place] [facility] Respiratory rate 2022-06-16 20:59:00 18 /min Univ ersity of [place] [facility] Body weight 2022-06-16 20:59:00 94.756 kg Universi ty [facility] [place] [facility] BMI 2022-06-16 20:59:00 38.21 kg/m2 Universi ty of [place] [facility] Systolic blood 2022-06-09 21:23:00 135 mm[Hg] Univer sity of pressure [place] [facility] Diastolic blood 2022-06-09 21:23:00 84 mm[Hg] Unive rsity of pressure [place] [facility] Heart rate 2022-06-09 21:23:00 90 /min Universi ty [facility] [place] [facility] Body temperature 2022-06-09 21:23:00 36.11 Cha Univ ersity of [place] [facility] Respiratory rate 2022-06-09 21:23:00 20 /min Univ ersity of [place] [facility] Body height 2022-06-09 21:23:00 157.5 cm Universi ty [facility] [place] [facility] Body weight 2022-06-09 21:23:00 94.394 kg [facility]i ty [facility] [place] [facility] BMI 2022-06-09 21:23:00 38.06 kg/m2 [facility] [place] [facility] Systolic blood 2022-05-12 20:28:00 121 mm[Hg] Univer sity of pressure [place] [facility] Diastolic blood 2022-05-12 20:28:00 75 mm[Hg] Unive rsity of pressure [place] [facility] Heart rate 2022-05-12 20:28:00 81 /min Universi ty [facility] [place] [facility] Body temperature 2022-05-12 20:28:00 36.17 Cha Univ ersity of [place] [facility] Respiratory rate 2022-05-12 20:28:00 18 /min Univ ersity of [place] [facility] Body height 2022-05-12 20:28:00 157.5 cm [facility] [place] [facility] Body weight 2022-05-12 20:28:00 98.204 kg [facility] BMI 2022-05-12 20:28:00 39.60 kg/m2 [facility] Procedures Procedure Date / Time Performed Performing Clinician Charleen arnold GARDASIL 9 (HPV 9V) 2022-10-05 21:05:53 Maritza Weinstein verszabrina [facility] DISCLOSURE AND 2022-06-16 05:01:00 Doctor Unassigned, Maria Guadalupe Lei [facility] CONSENT, MEDICAL AND Name Medical Bra [facility] SURGICAL PROCEDURES POCT TEST 2022-05-12 20:34:00 Maritza Weinstein [facility] Encounters Start End Encounter Admission Attending Care Care Encounter Source Date/Time Date/Time Type Type Clinicians Facility Department ID 2023-05-29 2023-05-29 Outpatient SANNA GLASS [id number] Sanna 14:00:00 14:00:00 VIKRAM irizarry 2023-05-09 2023-05-09 Outpatient SANNA GLASS [id number] Sanna 00:00:00 00:00:00 VIKRAM irizarry 2022-11-17 2022-11-17 Outpatient R LAURA [facility] [id number] Univers 12:45:00 12:45:[address] [facility] 2022-10-26 2022-10-26 Outpatient R PARK, [facility] [id number] Univers 13:20:00 13:20:00 ATTENDING ity [facility] 2022-10-05 2022-10-05 Nurse Nurse, Jv Rmchp Exp Cprit Obgyn U [facility] [id number] Univers 15:00:00 15:20:32 Visit Maritza Weinstein [facility]. [facility]2.7.2.686 Mehul as MATERNAL [id number] Med ical & CHILD [address] [place] [address] 2022-10-05 2022-10-05 Outpatient R JS [facility] [id number] Univers 15:00:00 15:20:32 MARITZA ni [facility] 2022-10-05 2022-10-05 Outpatient R [facility] [id number] Univers 14:00:00 14:00:00 ity of [facility] 2022-09-26 2022-09-26 Outpatient R JS, [facility] [id number] Univers 15:15:00 15:15:00 MARITZA ity o [facility] 2022-06-16 2022-06-16 Outpatient R AKINSONNYPE, [facility] [id number] Univers 15:45:00 16:21:29 MARITZA ity o [facility] 2022-06-16 2022-06-16 [facility] [id number] Univers 15:45:00 16:21:29 Visit Maritza Manzano PRESCHOOL AIDE 350.1.13.10 ity of [facility] 4.2.7.2.686 Mehul as MATERNAL [id number] [facility] ical & CHILD [address] [place] [address] 2022-06-16 2022-06-16 Outpatient R AKINWANDA, [facility] [id number] Univers 15:45:00 15:45:00 MARITZA jasbirjia o [facility] 2022-06-16 2022-06-16 Orders Doctor VILLAVICENCIO [id number] [id number] Univers 00:00:00 00:00:00 Only Unassigned, SHIRA 350.1.13.10 ity of [place] [facility] 4.2.7.2.686 Mehul as [id number] [address] 2022-06-09 2022-06-09 Outpatient R AKINSIPE, [facility] [id number] Univers 15:00:00 16:48:37 MARITZA ity o [facility] 2022-06-09 2022-06-09 Office [facility] [id number] Univers 15:00:00 16:48:37 Visit Maritza Manzano PRESCHOOL AIDE 350.1.13.10 ity of [facility] 4.2.7.2.686 Mehul as MATERNAL [id number] [facility] ical & CHILD [address] [place] [address] 2022-05-26 2022-05-26 [facility] [id number] Univers 15:30:00 15:30:00 MARITZA gerber o [facility] 2022-05-13 2022-05-13 Outpatient R HILL, [facility] [id number] Univers 14:30:00 14:30:00 EVIE ity [facility] 2022-05-12 2022-05-12 [facility] [id number] Univers 15:00:00 16:04:50 Visit Maritza C PRESCHOOL AIDE 350.1.13.10 ity of [facility] 4.2.7.2.686 Mehul as MATERNAL [id number] [facility] ical & CHILD [address] [place] [address] 2022-05-12 2022-05-12 [facility] [id number] Univers 15:00:00 16:04:50 MARITZA jasbirjia o [facility] 2022-05-12 2022-05-12 Outpatient [facility] [id number] Univers 14:30:00 14:30:00 MARITZA jasbirjia o [facility] 2022-05-12 2022-05-12 Orders Doctor SAUD [id number] [id number] Univers 00:00:00 00:00:00 Only Unassigned, SHIRA 350.1.13.10 ity of [place] [facility] 4.2.7.2.686 Mehul as [id number] [address] 2022-05-03 2022-05-03 Office [facility] [id number] Univers 14:30:00 15:32:36 Visit Maritza C PRESCHOOL AIDE 350.1.13.10 ity of [facility] 4.2.7.2.686 Mehul as MATERNAL [id number] [facility] ical & CHILD [address] [place] [address] 2022-05-03 2022-05-03 Out[facility] [id number] Univers 14:30:00 15:32:36 MARITZA gerber o [facility] 2022-05-03 2022-05-03 Out[facility] [id number] Univers 14:30:00 14:30:00 MARITZA ity o f [facility] 2022-05-03 2022-05-03 Outpatient R AKINSIPE, [facility] [id number] Univers 14:30:00 14:30:00 MARITZA ity o f [facility] 2022-05-03 2022-05-03 Outpatient R AKINSIPE, [facility] [id number] Univers 13:45:00 14:19:37 MARITZA ity o f [facility] 2022-05-03 2022-05-03 Nurse Nurse, Ang Rmchp Exp Cprit Obgyn U [facility] 1.2.840.114 [id number] Univers 13:45:00 14:19:37 Visit Pradeepwanda Maritza Manzano PRESCHOOL AIDE 350.1.13. 10 ity of [facility] 4.2.7.2.686 Mehul as MATERNAL [id number] Med ical & CHILD [address] [place] [address] 2022-05-03 2022-05-03 Outpatient R AKINSIPE, [facility] [id number] Univers 14:00:00 14:00:00 MARITZA ity o [facility] 2022-04-29 2022-04-29 Telephone [facility] [id number] [id number] [facility] 00:00:00 00:00:00 Maritza Manzano PRESCHOOL AIDE 350.1.13.10 ity of [facility] 4.2.7.2.686 Mehul as MATERNAL [id number] [facility] ical & CHILD [address] [place] [address] 2022-04-26 2022-04-26 Outpatient R AKINSIPE, [facility] [id number] Univers 09:45:00 09:45:00 MARITZA ity o f [facility] 2022-04-26 2022-04-26 Outpatient R AKINSIPE, [facility] [id number] Univers 09:45:00 09:45:00 MARITZA ity o f [facility] 2022-04-26 2022-04-26 Outpatient R AKINSIPE, [facility] [id number] Univers 09:15:00 09:15:00 MARITZA ity o f [facility] 2022-04-26 2022-04-26 Outpatient R [facility] [id number] Univers 09:15:00 09:15:00 MARITZA ity o f [facility] 2022-04-26 2022-04-26 Outpatient R [facility] [id number] Univers 09:00:00 09:00:00 ity of [facility] 2022-04-05 2022-04-05 [facility] [id number] Univers 09:45:00 10:40:04 MARITZA ity o f [facility] 2022-04-05 2022-04-05 Routine [facility] [id number] Univers 09:45:00 10:40:04 Maritza Manzano PRESCHOOL AIDE 350.1.13.10 ity of Visit [facility] 4.2.7.2.686 Mehul as MATERNAL [id number] Med ical & CHILD [address] [place] [address] 2022-03-11 2022-03-14 Inpatient P [facility] TASHIA [id number] Univers 18:15:00 17:00:00 [facility] 2022-03-11 2022-03-14 Inpatient [facility] TASHIA [id number] Univers 18:15:00 17:00:00 [facility] 2022-03-11 2022-03-14 Hospital SAUD Russell 1.2.840.114 [id number] Univers 18:15:00 17:00:00 Encounter Elizabeth SILVA 350.1.13.10 ity [facility] 4.2.7.2.686 Mehul as [id number] [facility] [address] [place] 2022-03-12 2022-03-13 Anesthesia Alex Moon 1.2.8 40.114 [id number] Univers 15:44:00 09:07:00 Event Bandarjamilah Sandie SHIRA 350.1.13.10 ity [facility] 4.2.7.2.686 Mehul as [id number] [facility] [address] 2022-03-11 2022-03-11 Inpatient P DREW, [facility] TASHIA [id number] Univers 18:15:00 18:15:00 ELIZABETH ity of [facility] 2022-03-11 2022-03-11 Telephone [facility] 1.2.840.114 [id number] Univers 00:00:00 00:00:00 Maritza C PRESCHOOL AIDE 350.1.13.10 ity of [facility] 4.2.7.2.686 Mehul as MATERNAL [id number] [facility] & CHILD [address] [place] [address] 2022-03-08 2022-03-08 [facility] [id number] Univers 10:30:00 11:08:01 MARITZA gerber [facility] 2022-03-08 2022-03-08 Routine [facility] [id number] Univers 10:30:00 11:08:01 Maritza Manzano PRESCHOOL AIDE 350.1.13.10 ity of Visit [facility] 4.2.7.2.686 Mehul as MATERNAL [id number] [facility] & [address] 2022-03-08 2022-03-08 Outpatient R [facility] [id number] Univers 10:30:00 11:08:01 MARITZA gerber [facility] 2022-03-08 2022-03-08 Outpatient R AKINSIPE, [facility] [id number] Univers 10:30:00 10:30:00 MARITZA gerber o [facility] 2022-03-08 2022-03-08 Orders Doctor SAUD 1.2.840.114 [id number] Univers 00:00:00 00:00:00 Only Unassigned, SHIRA 350.1.13.10 ity of [place] [facility] 4.2.7.2.686 Mehul as [id number] [address] 2022-03-02 2022-03-02 Telephone [facility] 1.2.840.114 [id number] Univers 00:00:00 00:00:00 Maritza Jose Juan PRESCHOOL AIDE 350.1.13.10 ity of [facility] 4.2.7.2.686 Mehul as MATERNAL [id number] [facility] & CHILD [address] [place] [address] 2022-03-01 2022-03-01 Outpatient R AKINSIPE, [facility] [id number] Univers 08:00:00 08:50:00 MARITZA ity o [facility] 2022-03-01 2022-03-01 Routine A[place]ipe, [facility] [id number] Univers 08:00:00 08:50:00 Maritza C PRESCHOOL AIDE 350.1.13.10 ity of Visit REGIONAL 4.2.7.2.686 Mehul as MATERNAL [id number] [facility] & CHILD [address] [place] [address] 2022-03-01 2022-03-01 Outpatient R AKINSIPE, [facility] [id number] Univers 08:00:00 08:50:00 MARITZA ity o [facility] 2022-03-01 2022-03-01 Outpatient R AKINSIPE, [facility] [id number] Univers 08:00:00 08:00:00 MARITZA ity o [facility] 2022-02-22 2022-02-22 Outpatient R AKINSIPE, [facility] [id number] Univers 10:45:00 11:42:09 MARITZA ity o [facility] 2022-02-22 2022-02-22 Routine [place], [facility] [id number] Univers 10:45:00 11:42:09 Maritza C [employer]CHOOL AIDE 350.1.13.10 ity of Visit REGIONAL 4.2.7.2.686 Mehul as MATERNAL [id number] [facility] & CHILD [address] [place] [address] 2022-02-22 2022-02-22 Outpatient R AKINSIPE, [facility] [id number] Univers 10:45:00 10:45:00 MARITZA ity o [facility] 2022-02-08 2022-02-08 Outpatient R AKINSIPE, [facility] [id number] Univers 08:00:00 09:11:24 MARITZA ity o [facility] 2022-02-08 2022-02-08 Routine [place], [facility] [id number] Univers 08:00:00 09:11:24 Maritza C PRESCHOOL AIDE 350.1.13.10 ity of Visit REGIONAL 4.2.7.2.686 Mehul as MATERNAL [id number] [facility] & CHILD [address] [place] [address] 2022-01-25 2022-01-25 Outpatient R AKINSIPE, [facility] [id number] Univers 09:45:00 10:20:19 MARITZA ity o f [facility] 2022-01-25 2022-01-25 Routine [place], [facility] [id number] Univers 09:45:00 10:20:19 Maritza C PRESCHOOL AIDE 350.1.13.10 ity of Visit REGIONAL 4.2.7.2.686 Mehul as MATERNAL [id number] [facility] & CHILD [address] [place] [address] 2022-01-11 2022-01-11 Outpatient R AKINSIPE, [facility] [id number] Univers 08:00:00 09:08:44 MARITZA ity o [facility] 2022-01-11 2022-01-11 Routine [facility], [facility] [id number] Univers 08:00:00 09:08:44 Maritza C PRESCHOOL AIDE 350.1.13.10 ity of Visit REGIONAL 4.2.7.2.686 Mehul as MATERNAL [id number] [facility] & [address] 2021-12-29 2021-12-29 Telephone [place], [facility] 1.2.840.114 [id number] Univers 00:00:00 00:00:00 Maritza C PRESCHOOL AIDE 350.1.13.10 ity of REGIONAL 4.2.7.2.686 Mehul as MATERNAL [id number] [facility] & CHILD [address] [place] [address] 2021-12-28 2021-12-28 Outpatient R AKINSIPE, [facility] [id number] Univers 12:45:00 13:28:14 MARITZA ity o f [facility] 2021-12-282021-12-28 Routine Js, [facility] 1.2.653.514 [id number] Univers 12:45:00 13:28:14 Maritza C PRESCHOOL AIDE 350.1.13.10 ity of Visit REGIONAL [id number] Mehul as MATERNAL [phone] [facility] & CHILD [address] [place] [address] 2021-12-28 2021-12-28 Outpatient R JS, [facility] [id number] Univers 12:45:00 13:28:14 MARITZA gerber o last [facility] 2021-12-22 2021-12-22 Outpatient R AKINSONNYPE, [facility] [id number] Univers 11:00:00 11:00:00 MARITZA gerber o last [facility] 2021-12-22 2021-12-22 Outpatient R AKINSONNYPE, [facility] [id number] Univers 11:00:00 11:00:00 MARITZA gerber o [facility] 2021-12-22 2021-12-22 [facility] [id number] Univers 00:00:00 00:00:00 Maritza C PRESCHOOL AIDE 350.1.13.10 ity of REGIONAL [id number] Mehul as MATERNAL [phone] [facility] & [address] 2021-12-15 2021-12-15 Automation Consultant Ultrasound, [facility] 1.2 .840.114 [id number] Univers 09:00:00 10:00:00 Visit Nixon Perry PRESCHOOL AIDE 350.1. 13.10 ity of REGIONAL 4.2.7.2.686 Mehul as MATERNAL [phone] [facility] CHILD [address] [facility] 2021-12-15 2021-12-15 Outpatient P ORLANDO [facility] [id number] Univers 09:00:00 09:00:00 NIXON gerber [facility] 2021-12-15 2021-12-15 [facility] [id number] Univers 00:00:00 00:00:00 Maritza C PRESCHOOL AIDE 350.1.13.10 ity of REGIONAL 4.2.7.2.686 Mehul as MATERNAL [phone] [facility] CHILD [address] [place] [address] 2021-12-08 2021-12-08 Outpatient R AKINSIPE, [facility] [id number] Univers 08:00:00 09:10:04 MARITZA ity o f [facility] 2021-12-08 2021-12-08 Routine Akinsipe, [facility] [id number] Univers 08:00:00 09:10:04 Maritza C PRESCHOOL AIDE 350.1.13.10 ity of Visit REGIONAL 4.2.7.2.686 Mehul as MATERNAL [phone] [facility] & [address] 2021-11-10 2021-11-10 Outpatient R AKINSIPE, [facility] [id number] Univers 09:45:00 10:37:07 MARITZA ity o f [facility] 2021-11-10 2021-11-10 Routine Akinsipe, [facility] [id number] Univers 09:45:00 10:37:07 Maritza C PRESCHOOL AIDE 350.1.13.10 ity of Visit REGIONAL 4.2.7.2.686 Mehul as MATERNAL [phone] [facility] & CHILD [address] [place] [address] 2021-11-08 2021-11-08 Automation Consultant Ultrasound, [facility] 1.2 .840.114 [id number] Univers 08:45:00 09:44:02 Visit Renetta Tejeda PRESCHOOL AIDE 350.1.13.10 ity of REGIONAL 4.2.7.2.686 Mehul as MATERNAL [phone] [facility] CHILD [address] [place] [address] 2021-11-08 2021-11-08 Outpatient P [facility] [id number] Univers 08:45:00 08:45:00 ity of [facility] 2021-11-08 2021-11-08 Outpatient P PRAVEEN [facility] [id number] Univers 08:45:00 08:45:00 RENETTA ity of [facility] 2021-11-08 2021-11-08 Abstract [facility] [id number] Univers 00:00:00 00:00:00 Maritza C PRESCHOOL AIDE 350.1.13.10 ity of REGIONAL 4.2.7.2.686 Mehul as MATERNAL [phone] [facility] CHILD [address] [place] [address] 2021-10-13 2021-10-13 Routine [facility] [id number] Univers 08:15:00 09:10:51 Maritza C PRESCHOOL AIDE 350.1.13.10 ity of Visit REGIONAL 4.2.7.2.686 Mehul as MATERNAL [phone] [address] 2021-10-13 2021-10-13 Outpatient R [facility] [id number] Univers 08:15:00 09:10:51 MARITZA ity o [facility] 2021-10-13 2021-10-13 [facility] [id number] Univers 08:15:00 08:15:00 MARITZA ity o [facility] 2021-10-13 2021-10-13 Outpatient R [facility], [facility] [id number] Univers 08:15:00 08:15:00 [facility] ity o [facility] 2021-09-29 2021-09-29 Orders Doctor VILLAVICENCIO 1.2.840.114 [id number] Univers 00:00:00 00:00:00 Only Unassigned, SHIRA 350.1.13.10 ity of [place] [facility] 4.2.7.2.686 Mehul as [phone] [address] 2021-09-28 2021-09-28 Telephone [facility] 1.2.840.114 [id number] Univers 00:00:00 00:00:00 Maritza C PRESCHOOL AIDE 350.1.13.10 ity of REGIONAL 4.2.7.2.686 Mehul as MATERNAL [phone] [facility] CHILD [address] [place] [address] 2021-09-17 2021-09-17 Outpatient R BAILEY PEDERSEN [facility] [id number] Univers 10:30:00 10:30:00 BAILEY PEDERSEN ity [facility] 2021-09-17 2021-09-17 Automation Consultant Lab, [facility] 1.2.840. 114 [id number] Univers 10:30:00 10:30:00 Visit PedersenSiddharth jesuseeta PRESCHOOL AIDE 350.1.13.10 ity of [facility] 4.2.7.2.686 Mehul as MATERNAL [phone] Med ical & CHILD 125 [facility] 2021-09-17 2021-09-17 Automation Consultant 1, [facility] 1.2. 840.114 [id number] Univers 09:45:00 10:30:00 Visit SkipSiddharthBailey PRESCHOOL AIDE 350.1.13.10 ity of REGIONAL 4.2.7.2.686 Mehul as MATERNAL [phone] Med ical & CHILD 369 [facility] 2021-09-17 2021-09-17 Outpatient P [facility] [id number] Univers 09:45:00 09:45:00 ity of [facility] 2021-09-17 2021-09-17 Abstract [facility] 1.2.840.114 [id number] Univers 00:00:00 00:00:00 Maritza C PRESCHOOL AIDE 350.1.13.10 ity of REGIONAL 4.2.7.2.686 Mehul as MATERNAL [id number] [facility] ical & CHILD [address] [place] [address] 2021-09-17 2021-09-17 Abstract Js [facility] 1.2.840.114 [id number] Univers 00:00:00 00:00:00 Maritza C PRESCHOOL AIDE 350.1.13.10 ity of [facility] 4.2.7.2.686 Mehul as MATERNAL [phone] [facility] ical & CHILD [address] [place] [address] 2021-09-15 2021-09-15 Outpatient R JS [facility] [id number] Univers 10:45:00 11:30:06 MARITZA ity o last [facility] 2021-09-15 2021-09-[address] [facility] [id number] Univers 10:45:00 11:30:06 Maritza C PRESCHOOL AIDE 350.1.13.10 ity of Visit REGIONAL 4.2.7.2.686 Mehul as MATERNAL [phone] [facility] CHILD [address] [place] [address] 2021-09-15 2021-09-15 Outpatient R AKINSIPE, [facility] [id number] Univers 10:45:00 10:45:00 MARITZA gerber o [facility] 2021-08-23 2021-08-23 Telephone [facility] 1.2.840.114 [id number] Univers 00:00:00 00:00:00 Maritza C PRESCHOOL AIDE 350.1.13.10 ity of [facility] 4.2.7.2.686 Mehul as MATERNAL [phone] [address] 2021-08-18 2021-08-18 Outpatient R AKINSIPE, [facility] [id number] Univers 08:30:00 10:01:03 MARITZA li [facility] 2021-08-18 2021-08-18 [facility] [id number] Univers 08:30:00 10:01:03 MARITZA gerber o [facility] 2021-08-18 2021-08-18 Initial [facility] [id number] Univers 08:30:00 10:01:03 Maritza C PRESCHOOL AIDE 350.1.13.10 ity of Visit REGIONAL 4.2.7.2.686 Mehul as MATERNAL [phone] [facility] & [address] 2021-08-18 2021-08-18 Orders Doctor VILLAVICENCIO 1.2.840.114 [id number] Univers 00:00:00 00:00:00 Only Unassigned, SHIRA 350.1.13.10 ity of [place] [facility] 4.2.7.2.686 Mehul as [phone] [address] 2020-02-10 2020-02-10 Emergency Teagan Lofton [facility] 1.2.840.114 [id number] Univers 13:43:29 18:40:00 Akanksha Montoyaton 350.1.13.10 i [place] 4.2.7.2.686 [facility] [id number] [facility] [address] 2020-02-10 2020-02-10 Emergency X KIRSTY, Teagan [facility] ERT [id number] Univers 13:43:29 18:40:[address] [facility] Results Test Description Test Time Test Comments Results Result Comments Source POCT TEST 2022-05-12 20:35:00 Test Item Value Reference Range Interpretation Comme nts POCT PREG (test code = 1605) Negative On board controls acceptable with C Line (test code = 3574) Yes POCT PREG LOT # (test code = 3575) POCT PREG TEST DATE (test code = 3576) [facility]
--- NOTE | 2023-06-21 12:22 | RAD REPORT ---
EXAM DESCRIPTION: US - Abdomen Exam Limited - 06/21/2023 11:46 am CLINICAL HISTORY: ABD PAIN COMPARISON: Abdomen Exam Limited dated 05/09/2019 FINDINGS: The gallbladder demonstrates multiple shadowing gallstones. No pericholecystic fluid or ga llbladder wall thickening. The common bile duct is normal measuring 2 mm. The liver demonstrates no findings of intrahepatic biliary dilatation. IMPRESSION: Cholelithiasis.
[2023-06-21 12:31] LABS: Absolute Lymphocytes (CBC) 2.1 K/uL (0.7-4.9); Hematocrit 33.8 % (36.0-45.0); Lymphocytes % 41.6 % (15.3-44.8); MCV 83.3 fL (80-100); MPV 9.2 fL (7.6-11.3); Platelets 189 thou/uL (152-406); RBC Red Blood Cell Count 4.06 M/uL (3.86-4.86); Specific Gravity 1.028 (1.005-1.030)
[2023-06-21 12:35] LABS: Specific Gravity 1.028 (1.005-1.030); Urine Bacteria None Seen /HPF (<20); Urine Bilirubin NEGATIVE (Negative); Urine Blood Negative (Negative); Urine Clarity Clear (Clear); Urine Color Yellow (Yellow); Urine Glucose NEGATIVE (Negative); Urine Mucus 1+ /HPF (None Seen); Urine Protein TRACE (Negative); Urine RBC <5 /HPF (None Seen); Urine Urobilinogen 1+ (Normal); Urine pH 6.5 (5.0-7.0)
[2023-06-21] MEDS ORDERED: FAMOTIDINE 20 MG/2 ML VIAL IV ONE (12:42)
[2023-06-21] MEDS ORDERED: KETOROLAC 30 MG/ML INJ ONE (12:42)
[2023-06-21] MEDS ORDERED: ONDANSETRON 4 MG/2 ML VIAL ONE (12:42)
[2023-06-21] MEDS ORDERED: NA CHLORIDE 0.9% 1,000 ML ONE (12:42)
[2023-06-21 12:50] LABS: Albumin 3.3 g/dL (3.4-5.0); Bilirubin Total 0.4 mg/dL (0.2-1.0); Potassium 3.9 mEq/L (3.5-5.1); Protein, Total 7.1 g/dL (6.4-8.2)
--- NOTE | 2023-06-21 13:21 | RAD REPORT ---
EXAM DESCRIPTION: CT - Abdomen Pelvis W Contrast - 06/21/2023 12:49 pm CLINICAL HISTORY: ABD PAIN COMPARISON: Stone Protocol dated 05/09/2023; Abdomen Exam Limited dated 06/21/2023 TECHNIQUE: Thin cut axial CT imaging of the abdomen and pelvis was performed following intravenous a dministration of 100 mL Isovue 300. Multiplanar reformats were generated and reviewed. All CT scans are performed using dose optimization technique as appropriate and may include automated exposure control or mA/KV adjustment according to patient size. FINDINGS: No suspicious findings in the lung bases. The liver, spleen, adrenal glands, and pancreas show no suspicious findings. Gallbladder and biliary tree are also without suspicious finding. Symmetric renal function is seen with no hydronephrosis or suspicious renal mass. Sequelae of sleeve gastrectomy. No dilated bowel loops or bowel wall thickening. No free air, free fl uid or inflammatory stranding. No hernia, mass or bulky lymphadenopathy. Small amount of fluid seen along the endometrial cavity. The urinary bladder is without significant f inding. No suspicious bony findings. IMPRESSION: No acute intra-abdominal process. Small amount of fluid within the endometrial cavity, likely physiologic. Please correlate with patien t's menstrual phase.
--- NOTE | 2023-06-21 13:43 | ER ---
Nurse's Notes [facility] Name: Lauren Rizo Age: 33 yrs Sex: Female : 1990 Arrival Date: 06/21/2023 Time: 11:04 Bed 11 Private MD: Diagnosis: Other cholelithiasis without obstruction Presentation: 06/21 11:25 Chief complaint: Patient states: "5 months ago, I had a gastric sleeve in [place]. For mb9 the past 2-3 days, I started having abdominal pain that feels sharp. I feel dizzy as well" Pt denies N/V/D. Coronavirus screen: Vaccine status: Patient reports receiving the 2nd dose of the covid vaccine. Ebola Screen: No symptoms or risks identified at this time. Initial Sepsis Screen: Does the patient meet any 2 criteria? No. Patient's initial sepsis screen is negative. Does the patient have a suspected source of infection? No. Patient's initial sepsis screen is negative. Risk Assessment: Do you want to hurt yourself or someone else? Patient reports no desire to harm self or others. Onset of symptoms was 2022. 11:25 Method Of Arrival: Ambulatory mb9 11:25 Acuity: CHRIS 3 mb9 Triage Assessment: 11:27 General: Appears uncomfortable, Behavior is calm, cooperative. Pain: Complains of pain mb9 in abdomen Pain currently is 9 out of 10 on a pain scale. Quality of pain is described as sharp, throbbing, Pain began 2-3 days ago. Neuro: Hurd Agitation-Sedation Scale (RASS): 0 - Alert and Calm Level of Consciousness is awake, alert, obeys commands, Oriented to person, place, time, situation, Appropriate for age. Cardiovascular: Patient's skin is warm and dry. Respiratory: Airway is patent Respiratory effort is even, unlabored. GI: Abdomen is round non-distended, Reports lower abdominal pain, upper abdominal pain, Patient currently denies diarrhea, nausea, vomiting. Derm: Skin is pink, warm \\T\\ dry. 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 - Social history:: Smoking status: Patient denies any tobacco usage or history of. Screenin:30 [facility] ED Fall Risk Assessment (Adult) History of falling in the last 3 months, ap3 including since admission No falls in past 3 months (0 pts). Abuse screen: Denies threats or abuse. Nutritional screening: No deficits noted. Tuberculosis screening: No symptoms or risk factors identified. Assessment: 14:02 GI: Abd is soft. ap3 Vital Signs: 11:25 BP 111 / 61; Pulse 55; Resp 18; Temp 97.7(O); Pulse Ox 100% ; Weight 71.67 kg (M); mb9 Height 5 ft. 0 in. ; Pain 9/10; 14:01 BP 115 / 76; Pulse 52; Pulse Ox 100% ; ap3 11:25 Body Mass Index 30.86 (71.67 kg, 152.4 cm) mb9 11:25 Pain Scale: Adult mb9 ED Course: 11:10 Patient arrived in ED. mg5 11:14 Brianna Ventura FNP-C is PHCP. kb 11:14 Divya Nation MD is Attending Physician. kb 11:27 Triage completed. mb9 11:27 Arm band placed on. mb9 11:48 US Abdomen Limited In Process Unspecified. EDMS 12:14 Lisha Smith, RN is Primary Nurse. ap3 12:29 Initial lab(s) drawn, by ok, sent to lab. Inserted saline lock: 22 gauge in right ap3 antecubital area, using aseptic technique. Blood collected. 12:43 Patient has correct armband on for positive identification. Call light in reach. Side ap3 rails up X 1. Pulse ox on. NIBP on. Door closed. Noise minimized. 12:43 No provider procedures requiring assistance completed. ap3 12:51 CT Abd/Pelvis - IV Contrast Only In Process Unspecified. EDMS 14:02 Provided Education on: discharge instructions. ap3 14:02 IV discontinued, intact, bleeding controlled, No redness/swelling at site. Pressure ap3 dressing applied. Administered Medications: 12:35 Drug: NS 0.9% IV 1000 ml IV at 1 bolus Per protocol; 1000 mL bolus Route: IV; Rate: 1 ap3 bolus; Site: right antecubital; 14:03 Follow up: IV Status: Completed infusion ap3 12:35 Drug: Famotidine IVP 20 mg IVP once; dilute with 10 mL 0.9% NaCl; give over 2 minutes ap3 Route: IVP; Site: right antecubital; 14:03 Follow up: Response: No adverse reaction ap3 12:35 Drug: Ondansetron IVP 4 mg IVP once; over 2 minutes Route: IVP; Site: left antecubital; ap3 14:03 Follow up: Response: No adverse reaction ap3 13:00 Drug: TORadol - Ketorolac IVP 15 mg IVP once Route: IVP; Site: right antecubital; ap3 14:03 Follow up: Response: No adverse reaction; Pain is decreased ap3 Medication: 12:43 VIS not applicable for this client. ap3 Outcome: 13:42 Discharge ordered by . ani 14:02 Discharged to home ambulatory, ap3 14:02 Condition: good 14:02 Discharge instructions given to patient, Instructed on discharge instructions, follow up and referral plans. medication usage, Demonstrated understanding of instructions, follow-up care, medications, Prescriptions given X 1, 14:03 Patient left the ED. ap3 Signatures: Dispatcher [employer] EDMS Brianna Ventura, DENNIS-C AREA PLANT MANAGER-Lisha Price RN RN ap3 Carmen Harkins RN RN mb9 Melodie Trujillo mg5 Corrections: (The following items were deleted from the chart) 13:13 13:12 Reassessment: patient complains of nausea and vomiting. verbal orders received ap3 for 4mg zofran IV once ap3
--- NOTE | 2023-06-21 13:43 | EDPHYS ---
Physician Documentation [facility] Name: Lauren Rizo Age: 33 yrs Sex: Female : 1990 Arrival Date: 06/21/2023 Time: 11:04 Bed 11 Private MD: ED Physician Divya Nation HPI: 06/21 14:01 This 33 yrs old Female presents to ER via Ambulatory with complaints of kb Abdominal Pain. 14:01 The patient presents with abdominal pain in the upper abdomen. kb 14:01 Onset: The symptoms/episode began/occurred 3 day(s) ago. The symptoms do not radiate. kb Associated signs and symptoms: none. The symptoms are described as constant. Modifying factors: The symptoms are alleviated by nothing, the symptoms are aggravated by nothing. Severity of pain: At its worst the pain was moderate in the emergency department the pain is unchanged. The patient has not experienced similar symptoms in the past. The patient has not recently seen a physician. 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 - Social history:: Smoking status: Patient denies any tobacco usage or history of. ROS: 13:59 Constitutional: Negative for fever, chills, and weight loss, kb 13:59 Abdomen/GI: Positive for abdominal pain, Negative for nausea, vomiting, and diarrhea, 13:59 All other systems are negative, Exam: 13:59 Constitutional: This is a well developed, well nourished patient who is awake, alert, kb and in no acute distress. Head/Face: Normocephalic, atraumatic. ENT: Moist Mucous membranes Cardiovascular: Regular rate Respiratory: Respirations even and unlabored. No increased work of breathing. Talking in full sentences Skin: Warm, dry with normal turgor. Normal color. MS/ Extremity: Pulses equal, no cyanosis. Neurovascular intact. Full, normal range of motion. Neuro: Awake and alert, GCS 15, oriented to person, place, time, and situation. Moves all extremities. Normal gait. 13:59 Abdomen/GI: Inspection: abdomen appears normal, Bowel sounds: normal, Palpation: soft, in all quadrants, mild abdominal tenderness, in the right upper quadrant, moderate abdominal tenderness, in the epigastric area, Vital Signs: 11:25 BP 111 / 61; Pulse 55; Resp 18; Temp 97.7(O); Pulse Ox 100% ; Weight 71.67 kg (M); mb9 Height 5 ft. 0 in. ; Pain 9/10; 14:01 BP 115 / 76; Pulse 52; Pulse Ox 100% ; ap3 11:25 Body Mass Index 30.86 (71.67 kg, 152.4 cm) mb9 11:25 Pain Scale: Adult mb9 MDM: 11:15 Patient medically screened. kb 14:00 Differential diagnosis: cholecystitis, Cholelithiasis, gastritis, gastroesophageal kb reflux disease, non-specific abd pain, pancreatitis. Data reviewed: vital signs, nurses notes. Counseling: I had a detailed discussion with the patient and/or guardian regarding the historical points, exam findings, and any diagnostic results supporting the discharge/admit diagnosis, lab results, radiology results, the need for outpatient follow up, a family practitioner, a general surgeon, a biological scientist, to return to the emergency department if symptoms worsen or persist or if there are any questions or concerns that arise at home. 06/21 11:25 Order name: CBC with Diff; Complete Time: 12:33 kb 06/21 11:25 Order name: CMP; Complete Time: 12:55 kb 06/21 11:25 Order name: Lipase; Complete Time: 12:55 kb 06/21 11:25 Order name: Test, Urine; Complete Time: 12:33 kb 06/21 11:25 Order name: Urinalysis w/ reflexes; Complete Time: 12:38 kb 06/21 11:25 Order name: CT Abd/Pelvis - IV Contrast Only; Complete Time: 13:22 kb 06/21 11:25 Order name: US Abdomen Limited; Complete Time: 12:27 kb 06/21 11:25 Order name: IV Saline Lock; Complete Time: 12:29 kb 06/21 11:25 Order name: Labs collected and sent; Complete Time: 12:29 kb Administered Medications: 12:35 Drug: NS 0.9% IV 1000 ml IV at 1 bolus Per protocol; 1000 mL bolus Route: IV; Rate: 1 ap3 bolus; Site: right antecubital; 14:03 Follow up: IV Status: Completed infusion ap3 12:35 Drug: Famotidine IVP 20 mg IVP once; dilute with 10 mL 0.9% NaCl; give over 2 minutes ap3 Route: IVP; Site: right antecubital; 14:03 Follow up: Response: No adverse reaction ap3 12:35 Drug: Ondansetron IVP 4 mg IVP once; over 2 minutes Route: IVP; Site: left antecubital; ap3 14:03 Follow up: Response: No adverse reaction ap3 13:00 Drug: TORadol - Ketorolac IVP 15 mg IVP once Route: IVP; Site: right antecubital; ap3 14:03 Follow up: Response: No adverse reaction; Pain is decreased ap3 Disposition Summary: 06/21/23 13:42 Discharge Ordered Notes: Location: Home kb Condition: Stable kb Diagnosis - Other cholelithiasis without obstruction kb Followup: kb - With: Emergency Department - When: As needed - Reason: Worsening of condition Followup: kb - With: Private Physician - When: 2 - 3 days - Reason: Recheck today's complaints, Continuance of care, Re-evaluation by your physician Discharge Instructions: - Discharge Summary Sheet kb - Cholelithiasis, [id number] kb Forms: - Work release form kb - Medication Reconciliation Form kb - Thank You Letter kb - Antibiotic Education kb - Prescription Opioid Use kb - Patient Portal Instructions kb - Leadership Thank You Letter kb Prescriptions: - dicyclomine 20 mg Oral tablet - take 1 tablet ORAL route 4 times per day As needed; 20 tablet; Refills: 0, kb Product Selection Permitted Signatures: Dispatcher [employer] Brianna Nieves FNP-C FNP-Lisha Price RN RN ap3 Carmen Harkins RN RN mb9
== END 2023-06-21 14:03 | disposition home or self-care (01) ==
LOC: ER 11:04
DX: K80.80 Other cholelithiasis without obstruction (principal)
CPT/HCPCS: 85025; 81001; 36415; 81025; 83690; 80053; 74177; 76705; Q9967; J2405; J7030

== ENCOUNTER 2023-06-30 07:41 | Day surgery (SDC) | payer OTHER ==
[2023-06-30] MEDS ORDERED: CEFOXITIN SODIUM 1 GM/VIAL ONE (08:04)
[2023-06-30] MEDS ORDERED: Ringers Lactate 1,000 ML IV ONE (08:05)
[2023-06-30 10:04] VITALS: O2SAT 100
[2023-06-30] MEDS ORDERED: LIDOCAINE 2% MPF 5 ML VIAL ONE (10:29)
[2023-06-30] MEDS ORDERED: propofoL 200 MG/20 ML VIAL IV ONE (10:29)
[2023-06-30] MEDS ORDERED: ONDANSETRON 4 MG/2 ML VIAL ONE (10:29)
[2023-06-30] MEDS ORDERED: MIDAZOLAM HCL 2 MG/2 ML INJ ONE (10:29)
[2023-06-30] MEDS ORDERED: FENTANYL CITR 100 MCG/2 ML ONE (10:29)
[2023-06-30] MEDS ORDERED: ROCURONIUM 50 MG/5 ML VIAL IV ONE (10:29)
[2023-06-30] MEDS: BUPIVACAINE 0.25% PF 30 ML VIAL ONE ×2 (10:42→10:51)
[2023-06-30] MEDS ORDERED: KETOROLAC 30 MG/ML INJ ONE (10:57)
--- NOTE | 2023-06-30 11:19 | P.OP ---
Senior Patient Account Representative: Sarahi Garcia Preoperative diagnosis: Cholecystitis with Cholelithiasis Postoperative diagnosis: Cholecystitis with Cholelithiasis Primary procedure: Laparoscopic Cholecystectomy with ICG Cholangiography Anesthesia: GETA + Local Estimated blood loss: <5cc Specimen: Gallbladder Findings: Adhesions from colon to GB, blue dome GB Complications: None Transferred to: Recovery Room Condition: Good
[2023-06-30] MEDS ORDERED: GLYCOPYRROLATE 0.2 MG/ML SYR ONE (11:30)
[2023-06-30] MEDS ORDERED: NEOSTIGMINE 1 MG/ML -10 ML VIAL ONE (11:38)
[2023-06-30] MEDS: HYDROMORPHONE HCL 1 MG/ML INJ ONE ×2 (11:57→12:02)
[2023-06-30 12:23] VITALS: BP 99/55; TEMP 97.6
[2023-06-30] MEDS ORDERED: HYDROCODONE/APAP 7.5/325 MG TAB ONE (13:30)
--- NOTE | 2023-06-30 15:47 | EKG ---
Test Date: 2023-06-29 Test Time: 12:34:28 Plate Embosser: LISA MEASUREMENT RESULTS: Intervals: Rate: 51 CA: 92 QRSD: 76 QT: 482 QTc: 444 Priddy: P: 13 CA: 92 QRS: 13 T: 21 INTERPRETIVE STATEMENTS: Sinus bradycardia with short CA Otherwise normal ECG No previous ECG available for comparison Electronically Signed On 06-30-23 15:43:14 CDT by Ulysses Gu
--- NOTE | 2023-06-30 22:16 | OP ---
Date of Procedure: 06/30/2023 Surgeon: Lenin Lentz MD, Preoperative Diagnosis: cholecystitis. Postoperative Diagnosis: cholecystitis. Procedure: Laparoscopic cholecystectomy with indocyanine green cholangiography. Anesthesia: General endotracheal plus local with 0.25% Marcaine. Estimated Blood Loss: Less than 5 cc. Specimen: Gallbladder. Findings: Adhesions from the colon to the gallbladder and a blue dome gallbladder was appreciated. Complications: None. The patient transferred to recovery room in good condition. Procedure In Detail: After informed consent was obtained, the patient was brought to the operating r oom, prepped and draped in the usual sterile fashion after adequate anesthesia was achieved. Supraum bilical area was anesthetized with 0.25% Marcaine, sharply incised with 5 mm trocars placed under dir ect visualization with no evidence of complication. Insufflation obtained to 15 mmHg at this time. There was no injury to vital structures upon entry in the abdomen. Two additional trocars were place d, 1 in the epigastrium and 1 in the right upper quadrant. Both of these were similarly anesthetized and sharply incised, 5 mm trocars placed under direct visualization without complication. The umbil ical trocar was then upsized to a 12 mm under direct visualization with no evidence of complication. The patient was positioned head up right-side up position. Ratcheted graspers were used to grasp th e patient's gallbladder and placed it towards the patient's right shoulder. Dissection continued sonia n to remove the colon off the anterior surface of the gallbladder which is in the right hepatic fossa . The colon had no injuries and these were alveolar type adhesions which were easily taken down with out any significant electrocautery device used. Simple blunt dissection was able to dissect these fr eely. At this point, I turned my attention to the gallbladder. I dissected down circumferentially a round the Clay pouch of the gallbladder using a combination of electrocautery and blunt dissectio n, identifying 2 structures identified as both cystic duct and cystic artery. At this point, indocya nine green cholangiography was performed, verifying the anatomy of the cystic duct confluence as well as the gallbladder cystic duct confluence. Double titanium clips placed, doubly on the proximal lor e and singly on the distal side of both cystic duct and cystic artery. These structures then ligated using Endo Dominguez without evidence of complication. Gallbladder was removed from the hepatic fossa with electrocautery without evidence of complication. No additional hemostat was required. The gall bladder was then placed in EndoCatch bag, removed through the umbilical trocar site and sent off for pathologic examination. The area was copiously irrigated. Indocyanine green cholangiography perform ed once again. No bile leakage was appreciated at this point. Clips were found to be in good anatom ic position. No hemostat was required. At this point, the remaining effluent was suctioned out. Th e patient positioned back in neutral position. The umbilical trocar site was closed using Christian-Emre binh suture passer with 0 Vicryl in interrupted fashion with good approximation of tissues. The abd omen was completely desufflated under direct visualization with no evidence of complication. The tro cars were removed. All skin incisions were copiously irrigated and closed with 4-0 Monocryl in runni ng fashion. Dermabond was placed over top. The patient tolerated the procedure well without evidenc e of complication and transferred to PACU in good condition. All counts were correct at the end of t he case. AWILDA/ANASTACIO Voice ID: [id number] Report ID: [id number]
== END 2023-06-30 13:35 | disposition home or self-care (01) ==
LOC: OR 07:41
PROVIDERS: ATTEND Surgery
PROC: BF50200 Other Imaging of Bile Ducts using Fluorescing Agent, Indocyanine Green Dye, Intraoperative (ICD-10-PCS; 2023-06-30)
PROC: 0FT44ZZ Resection of Gallbladder, Percutaneous Endoscopic Approach (ICD-10-PCS; principal; 2023-06-30 09:00)
DX: K80.10 Calculus of gallbladder with chronic cholecystitis without obstruction (principal); E66.9 Obesity, unspecified; Z68.30 Body mass index [BMI] 30.0-30.9, adult
CPT/HCPCS: 93005; 88304; 47563; J2704; J2710; J2001; J2250; J3010; J1170; J0694; J2405; J7120

== ENCOUNTER 2025-04-26 09:06 | Emergency (ER) | payer OTHER ==
--- OUTSIDE RECORDS SUMMARY | 2025-04-26 09:13 | XMS REPORT | Continuity of Care Document ---
Author Name Unknown Address [address] [facility] [address] [place] [address] [facility] [place] Address [address] [facility] [address] [place] [address] Care Team Providers Care Headmaster/Mistress Name Role Phone MARITZA WEINSTEIN Primary Care Physician Unav ailable Maico Coyne Attending Clinician Unavailable ERICKA HECK Attending Clinician Unavailable Ericka Harris Attending Clinician [phone] MARITZA WEINSTEIN Attending Clinician Unavail able Maritza Mendoza Attending Clinician + LEIGH ANN SULLIVAN Attending Clinician Unava ilSABINO Neal Attending Clinician Unavailable VIKRAM GLASS Attending Clinician Unavailable LAB90 Attending Clinician Unavailable JULIO VEGA Attending Clinician Unavailab SIMRAN Norris Attending Clinician Unavaila ble UNKNOWN, ATTENDING Attending Clinician Unavailab Jv Grimaldochharesh Exp Cprit Obgyn Attending Clini annabelle Unavailable LAVELLE ACEVEDO Attending Clinician Unavailable Doctor Unassigned, Burgin Attending Clinician U EVIE Babb Attending Clinician Unavailable ELIZABETH RUSSELL Attending Clinician Unavailable Elizabeth Russell DO Attending Clinician [phone] [facility] [place] ANTUNEZ, Alex Attending Clinician [phone] Rosa ANTUNEZ, Sandie Attending Clinician [phone] Ultrasound, Ang-Mfm Attending Clinician Unavaileb Perry MD, Nixon Romo Attending Clinician + NIXON PERRY Attending Clinician UnaRenetta Wagner MD Attending Clinician [phone] RENETTA MORTON Attending Clinician Unavailabl BAILEY Nation Attending Clinician Unavailable BAILEY PEDERSEN Attending Clinician Unavailable Lab, Pea-Rmchp Attending Clinician Unavailable Bailey Pedersen MD Attending Clinician [phone] 1, Pea-Mfm Us Room Attending Clinician Unavailab Teagan Rao Attending Clinician [phone] Teagan LOFTON Attending Clinician Unavailable ELIZABETH RUSSELL Admitting Clinician Unavailable Elizabeth Russell DO Admitting Clinician [phone] Teagan LOFTON Admitting Clinician Unavailable Payers Payer Name Policy Type Policy Number Effective Date Expirati on Date Source [id number] [id number] 2024 00:00:00 [employer] MP [employer] 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 ON 9 [id number] 2023 00:00:00 FAMILY PLANNING RUDOLPH 0-100% [id number] 2022 00:00:00 [employer] MOM CHIP BHARGAVI LOW FPL [id number] 2021 00:00:00 TMHP TP30 EMERGENCY MEDICAID [id number] 2022 00:00:00 2022 00:00:00 CHIP BHARGAVI LOW FPL-PENDING TP30 MEDICAID PENDING 2022 00:00: 2022 00:00:00 Problems Condition Name Condition Details Condition Category Status Onset Date Resolution Date Last Treatment Date Treating Clinician Comments Source Nexplanon insertion Nexplanon insertion Disease Active 05-12 00:00: 00 [facility] Nexplanon removal Nexplanon removal Disease Active 05-12 00:00: 00 [facility] Encounter for other general counseling or advice on contracept ion Encounter for other general counseling or advice on contracept ion Disease Active 05-03 00:00: 00 [facility] Gestationa l hypertensi on Gestationa l hypertensi on Disease Active 03-14 00:00: 00 [facility] Anemia, unspecifie d Anemia, unspecifie d Disease Active 4-27 00:00: 00 [facility] Yeast infection of the vagina Yeast infection of the vagina Disease Active 4-26 00:00: 00 [facility] Over weight Over weight Disease Active 2020-09 2 00:00: 00 [facility] Obesity (BMI 30-39.9) Obesity (BMI 30-39.9) Disease Active 2020-09 2-15 00:00: 00 [facility] Pain pelvic Pain pelvic Disease Active 09-05 00:00: 00 [facility] History of PCOS History of PCOS Disease Active 09-05 00:00: 00 Overview: Formattin g of this note might be different from the original. Was on metformin stopped in 09/2016 [facility] [id number] Iron deficiency anemia, unspecifie d iron deficiency anemia type Problem [facility] [id number] History of anemia Problem [facility] [id number] Mood disorder Problem [facility] Routine follow-up Routine follow-up Disease Resolve d 04-05 00:00: 00 2022-05-03 00:00:00 2022-05-03 15:21:48 [facility] (spontaneo us vaginal delivery) (spontaneo us vaginal delivery) Disease Resolve d 2022-0 7-11 00:00: 00 2022-04-05 00:00:00 2022-04-05 10:59:25 [facility] Single liveborn infant delivered vaginally Single liveborn delivered vaginally Disease Resolve d 2021-0 7-11 00:00: 00 2022-04-05 00:00:00 2022-04-05 10:59:21 [facility] Second degree perineal laceration Second degree perineal laceration Disease Resolve d 0 7-11 00:00: 00 2022-04-05 00:00:00 2022-04-05 10:59:20 [facility] 37 weeks gestation of 37 weeks gestation of Disease Resolve d 0 7-08 00:00: 00 2022-04-05 00:00:00 2022-04-05 10:58:52 [facility] Decreased movement affecting , antepartum Decreased movement affecting , antepartum Disease Resolve d 0 7-08 00:00: 00 2022-04-05 00:00:00 2022-04-05 10:58:56 [facility] Positive GBS test Positive GBS test Disease Resolve d 0 6-30 00:00: 00 2022-04-05 00:00:00 2022-04-05 10:59:18 [facility] Back pain in Back pain in Disease Resolve d 2021-0 5-24 00:00: 00 2022-04-05 00:00:00 2022-04-05 10:58:54 [facility] Headache in Headache in Disease Resolve d 2021-0 4-06 00:00: 00 2022-04-05 00:00:00 2022-04-05 10:59:02 [facility] UTI in UTI in Disease Resolve d 1 2-20 00:00: 00 2022-04-05 00:00:00 2022-04-05 10:58:49 [facility] Supervisio n of high-risk Supervisio n of high-risk Disease Resolve d 2020-09 2-15 00:00: 00 2022-04-05 00:00:00 2022-04-05 10:59:24 [facility] Allergies, Adverse Reactions, Alerts Allergy Name Allergy Type Status Severity Reaction(s) Onset Date Inactive Date Treating Clinician Comments Source NO KNOWN ALLERGIE S Drug Class Active [facility] Social History Social Habit Start Date Stop Date Quantity Comments Source History of Tobacco Use [facility] Sex Assigned At [facility] Alcoholic beverage intake 2024-08-16 00:00:00 2024-08-16 00:00:00 Current non-drinker of alcohol (finding) [facility] History of Social function 2024-01-08 00:00:00 2024-01-08 00:00:00 [facility] Exposure to SARS-CoV-2 (event) 2022-09-25 00:00:00 2022-10-05 15:19:00 Not sure [facility] Alcohol intake 2022-10-05 00:00:00 2022-10-05 00:00:00 Current non-drinker of alcohol (finding) [facility] Tobacco use and exposure 2022-04-05 00:00:00 2022-04-05 00:00:00 Smokeless tobacco non-user [facility] Smoking Status Start Date Stop Date Source Never Smoker [facility] Medications Ordered Medication Name Filled Medication Name Start Date Stop Date Current Medication? Ordering Clinician Indication Dosage Frequency Signature (SIG) Comments Components Source Ferrous Sulfate 325 (65 Fe) MG Ferrous Sulfate 325 (65 Fe) MG 4-04 00:00: 00 No 1{table t} Ferrous Sulfate 325 (65 Fe) MG Escitalopra m Oxalate 10 MG Escitalopra m Oxalate 10 MG 3-04 00:00: 00 No 1{table t} QD Escitalopr am Oxalate 10 MG Cetirizine HCl 10 MG oral Capsule 2022-09 0-19 00:00: 00 Yes [id number] 10mg Take 1 capsule (10 mg total) by mouth daily. Sanna Seybold - Externa l etonogestre L (NEXPLANON) implant 68 mg - 22:00: 00 05-12 21:09 :00 No [id number] [id number] () 27 mg iron- 1 mg folic tablet 03-14 00:00: 00 Yes [id number] 1{tbl} Take 1 tablet by mouth daily. [facility] [id number] fum-folic () 27 mg iron- 1 mg folic tablet 03-14 00:00: 00 08-16 00:00 :00 No [id number] 1{tbl} Take 1 tablet by mouth daily. [facility] docusate 100 mg capsule 03-14 00:00: 00 08-16 00:00 :00 No [id number] 200mg Take 2 capsules by mouth once daily as needed for Constipati on. [facility] ferrous sulfate 325 mg (65 mg iron) tablet 03-14 00:00: 00 08-16 00:00 :00 No [id number] 325mg Take 1 tablet by mouth 2 (two) times daily. [facility] ibuprofen 600 mg tablet 03-14 00:00: 00 08-16 00:00 :00 No [id number] 600mg Take 1 tablet by mouth every 6 (six) hours as needed (Pain). Take with food or milk. [facility] Immunizations Ordered Immunization Name Filled Immunization Name Date Status Comments Source HPV9 2022-10-05 00:00:00 Completed [facility] HPV9 2022-10-05 00:00:00 Completed HPV9 2022-05-03 00:00:00 Completed [facility] HPV9 2022-05-03 00:00:00 Completed [facility] HPV9 2022-05-03 00:00:00 Completed [facility] HPV9 2022-05-03 00:00:00 Completed [facility] HPV9 2022-05-03 00:00:00 Completed [facility] HPV9 2022-05-03 00:00:00 Completed HPV9 2022-03-14 00:00:00 Completed [facility] HPV9 2022-03-14 00:00:00 Completed [facility] HPV9 2022-03-14 00:00:00 Completed [facility] HPV9 2022-03-14 00:00:00 Completed [facility] HPV9 2022-03-14 00:00:00 Completed [facility] HPV9 2022-03-14 00:00:00 Completed [facility] TDAP 2022-01-11 00:00:00 Completed [facility] TDAP 2022-01-11 00:00:00 Completed [facility] TDAP 2022-01-11 00:00:00 Completed [facility] TDAP 2022-01-11 00:00:00 Completed [facility] TDAP 2022-01-11 00:00:00 Completed [facility] TDAP 2022-01-11 00:00:00 Completed [facility] SARS-COV-2 COVID-19 PFIZER VACCINE 2021-05-11 00:00:00 Completed [facility] SARS-COV-2 COVID-19 PFIZER VACCINE 2021-05-11 00:00:00 Completed [facility] SARS-COV-2 COVID-19 PFIZER VACCINE 2021-05-11 00:00:00 Completed [facility] SARS-COV-2 COVID-19 PFIZER VACCINE 2021-05-11 00:00:00 Completed [facility] SARS-COV-2 COVID-19 PFIZER VACCINE 2021-05-11 00:00:00 Completed [facility] SARS-COV-2 COVID-19 PFIZER VACCINE 2021-05-11 00:00:00 Completed SARS-COV-2 COVID-19 PFIZER VACCINE 2021-04-20 00:00:00 Completed [facility] SARS-COV-2 COVID-19 PFIZER VACCINE 2021-04-20 00:00:00 Completed [facility] SARS-COV-2 COVID-19 PFIZER VACCINE 2021-04-20 00:00:00 Completed [facility] SARS-COV-2 COVID-19 PFIZER VACCINE 2021-04-20 00:00:00 Completed [facility] SARS-COV-2 COVID-19 PFIZER VACCINE 2021-04-20 00:00:00 Completed [facility] SARS-COV-2 COVID-19 PFIZER VACCINE 2021-04-20 00:00:00 Completed [facility] Boostrix (Tdap) Boostrix (Tdap) Unknown Completed [facility] TDAP Unknown Completed [facility] SARS-COV-2 COVID-19 PFIZER VACCINE Unknown Completed [facility] HPV9 Unknown Completed [facility] HPV 9 (Human Papillomavirus) Unknown Completed Sanna alexander - External Covid-19 Vaccine (GuidePal), Mrna-lnp, Baldomero Protein, Pf, 30mcg/0.3ml,IM Unknown Completed Sanna irizarry - External Tdap- (Boostrix, Adacel) Unknown Completed Sanna Echeverria - External Vital Signs Vital Name Observation Time Observation Value Comments S ource height 2024-12-06 08:30:00 60 [in_i] Commo n [facility] weight 2024-12-06 08:30:00 146.8 [lb_av] Co mmon [facility] temperature 2024-12-06 08:30:00 97.3 [degF] Com [facility] bmi 2024-12-06 08:30:00 28.67 kg/m2 Comm on [facility] oximetry 2024-12-06 08:30:00 99 % Commo n [facility] blood pressure systolic 2024-12-06 08:30:00 100 mm[Hg] Common [facility] blood pressure diastolic 2024-12-06 08:30:00 52 mm[Hg] Common [facility] height 2024-11-05 14:00:00 60 [in_i] Commo n [facility] weight 2024-11-05 14:00:00 146.8 [lb_av] Co mmon [facility] temperature 2024-11-05 14:00:00 97.9 [degF] Com mon [facility] bmi 2024-11-05 14:00:00 28.67 kg/m2 Comm on [facility] oximetry 2024-11-05 14:00:00 99 % Commo n [facility] blood pressure systolic 2024-11-05 14:00:00 118 mm[Hg] [facility] blood pressure diastolic 2024-11-05 14:00:00 86 mm[Hg] [facility] Systolic blood pressure 2024-08-16 14:53:00 102 mm[Hg] [facility] Diastolic blood pressure 2024-08-16 14:53:00 72 mm[Hg] [place] [facility] Heart rate 2024-08-16 14:53:00 65 /min [facility] Body temperature 2024-08-16 14:53:00 36.89 Cha [facility] Respiratory rate 2024-08-16 14:53:00 18 /min [facility] Body height 2024-08-16 14:53:00 157.5 cm [facility] Body weight 2024-08-16 14:53:00 64.496 kg [facility] BMI 2024-08-16 14:53:00 26.01 kg/m2 [facility] Systolic blood pressure 2024-01-08 12:18:00 101 mm[Hg] [place] [facility] Diastolic blood pressure 2024-01-08 12:18:00 61 mm[Hg] [facility] Heart rate 2024-01-08 12:18:00 59 /min [facility] Body temperature 2024-01-08 12:18:00 36.39 Cha [facility] Respiratory rate 2024-01-08 12:18:00 18 /min [facility] Body height 2024-01-08 12:18:00 157.5 cm [facility] Body weight 2024-01-08 12:18:00 63.277 kg [facility] BMI 2024-01-08 12:18:00 25.51 kg/m2 [facility] Systolic blood pressure 2023-06-22 16:38:00 110 mm[Hg] Sanna Vasquez ld - External Diastolic blood pressure 2023-06-22 16:38:00 62 mm[Hg] Sanna Rauscho ld - External Heart rate 2023-06-22 16:38:00 61 /min Brianna Echeverria - External Body temperature 2023-06-22 16:38:00 36 Cha Sanna Echeverria - External Respiratory rate 2023-06-22 16:38:00 14 /min Sanna Echeverria - External Body height 2023-06-22 16:38:00 152.4 cm Fabiola her Seybold - External Body weight 2023-06-22 16:38:00 72.576 kg Fabiola ey Seybold - External BMI 2023-06-22 16:38:00 31.25 kg/m2 Fabiola ey Seybold - External Body temperature 2022-10-05 21:20:00 36.44 Cha [facility] Body weight 2022-10-05 21:20:00 98.93 kg [facility] BMI 2022-10-05 21:20:00 39.89 kg/m2 [facility] Systolic blood pressure 2022-06-16 20:59:00 128 mm[Hg] [facility] Diastolic blood pressure 2022-06-16 20:59:00 79 mm[Hg] [facility] Heart rate 2022-06-16 20:59:00 79 /min [facility] Body temperature 2022-06-16 20:59:00 36.11 Cha [facility] Respiratory rate 2022-06-16 20:59:00 18 /min [facility] Body weight 2022-06-16 20:59:00 94.756 kg [facility] BMI 2022-06-16 20:59:00 38.21 kg/m2 [facility] Systolic blood pressure 2022-06-09 21:23:00 135 mm[Hg] [facility] Diastolic blood pressure 2022-06-09 21:23:00 84 mm[Hg] [facility] Heart rate 2022-06-09 21:23:00 90 /min [facility] Body temperature 2022-06-09 21:23:00 36.11 Cha [facility] Respiratory rate 2022-06-09 21:23:00 20 /min [facility] Body height 2022-06-09 21:23:00 157.5 cm [facility] Body weight 2022-06-09 21:23:00 94.394 kg [facility] BMI 2022-06-09 21:23:00 38.06 kg/m2 [facility] Systolic blood pressure 2022-05-12 20:28:00 121 mm[Hg] [facility] Diastolic blood pressure 2022-05-12 20:28:00 75 mm[Hg] [facility] Heart rate 2022-05-12 20:28:00 81 /min [facility] Body temperature 2022-05-12 20:28:00 36.17 Cha [facility] Respiratory rate 2022-05-12 20:28:00 18 /min [facility] Body height 2022-05-12 20:28:00 157.5 cm [facility] Body weight 2022-05-12 20:28:00 98.204 kg [facility] BMI 2022-05-12 20:28:00 39.60 kg/m2 [facility] Procedures Procedure Date / Time Performed Performing Clinicia n Source GARDASIL 9 (HPV 9V) VACCINE 2022-10-05 21:05:53 Maritza Weinstein [facility] DISCLOSURE AND CONSENT, MEDICAL AND SURGICAL PROCEDURES 2022-06-16 05:01:00 Doctor Unassigned, Burgin [facility] POCT TEST 2022-05-12 20:34:00 Devante Weinstein [facility] Encounters Start Date/Time End Date/Time Encounter Type Admission Type Attending Clinicians Care Facility Care Department Encounter ID Source 2024-11-05 14:13:01 Outpatient Stanford Maico [facility] [id number] 2024-12-06 00:00:00 2024-12-06 00:00:00 (WELLNESS) Wellness Visit [facility] [id number] [facility] 2024-11-05 00:00:00 2024-11-05 00:00:00 OFFICE VISIT NEW PT LEVEL 4 STLMLC STLMLC [id number] [facility] 2024-08-16 08:30:00 2024-08-16 09:24:28 Outpatient R ERICKA HECK [facility] [id number] [facility] 2024-08-16 08:30:00 2024-08-16 09:24:28 Office Visit Kitty Heckice [facility] METAL DIE FIN[facility] 1..840.114 [id number] [id number] [facility] 2024-07-17 00:00:00 2024-07-18 06:53:52 Telephone Umang Ericka [facility] 1..840.114 350.1.13.10 [id number] [id number] [facility] 2024-07-15 15:15:00 2024-07-15 15:15:00 Outpatient R ERICKA HECK [facility] [id number] [facility] 2024-03-19 08:00:00 2024-03-19 08:00:00 Outpatient R MARITZA WEINSTEIN [facility] [id number] [facility] 2024-03-04 14:45:00 2024-03-04 14:45:00 Outpatient R MARITZA WEINSTEIN [facility] [id number] [facility] 2024-01-08 07:30:00 2024-01-08 07:51:44 Outpatient R MARITZA WEINSTEIN [facility] [id number] [facility] 2024-01-08 07:30:00 2024-01-08 07:51:44 Office Visit Maritza Weinstein [facility] 1..840.114 [id number] [id number] [facility] 2023-11-16 08:00:00 2023-11-16 08:00:00 Outpatient LEIGH ANN SULLIVAN [facility] [id number] [facility] 2023-10-30 08:30:00 2023-10-30 08:30:00 Outpatient SABINO GARCIA [facility] [id number] [facility] 2023-08-09 09:30:00 2023-08-09 09:30:00 Outpatient VIKRAM GLASS [facility] [id number] [facility] 2023-06-26 16:00:00 2023-06-26 16:00:00 Outpatient LAB90 [facility]NA [facility] [id number] [facility] 2023-06-22 12:15:00 2023-06-22 12:15:00 Outpatient LAB90 SANNA [facility] [id number] [facility] 2023-06-22 11:30:00 2023-06-22 11:30:00 Outpatient JULIO VEGA [facility] [id number] [facility] 2023-06-22 00:00:00 2023-06-22 00:00:00 Outpatient JULIO VEGA [facility] [id number] [facility] 2023-05-29 14:00:00 2023-05-29 14:00:00 Outpatient SANDRAVERNAVIKRAM Paul [facility] [id number] [facility] 2023-05-09 00:00:00 2023-05-09 00:00:00 Outpatient PREVIKRAM JOYCE [facility] [id number] [facility] 2022-11-17 12:45:00 2022-11-17 12:45:00 Outpatient SIMRAN VILLEGAS [facility] [id number] [facility] 2022-10-26 13:20:00 2022-10-26 13:20:00 Outpatient MELVI MCKINNEY [facility] [id number] [facility] 2022-10-05 15:00:00 2022-10-05 15:20:32 Outpatient R MARITZA WEINSTEIN [facility] [id number] [facility] 2022-10-05 15:00:00 2022-10-05 15:20:32 Nurse Visit Nurse, Jv Rmchp Exp Cprit Obgyn JsMaritza [facility] METAL [facility] [id number] 350.1.13.10 [id number] [id number] [facility] 2022-10-05 14:00:00 2022-10-05 14:00:00 Outpatient R [facility] [id number] [facility] 2022-09-26 15:15:00 2022-09-26 15:15:00 Outpatient R BRIANNAKATEMARITZA [facility] [id number] [facility] 2022-06-16 15:45:00 2022-06-16 16:21:29 Office Visit Maritza Weinstein [facility] METAL [facility] 1.840.114 350.1.13.10 [id number] [id number] [facility] 2022-06-16 15:45:00 2022-06-16 16:21:29 Outpatient R BRIANNAKATEMARITZA [facility] [id number] [facility] 2022-06-16 15:45:00 2022-06-16 15:45:00 Outpatient R MARITZA WEINSTEIN [facility] [id number] [facility] 2022-06-16 00:00:00 2022-06-16 00:00:00 Orders Only Doctor Unassigned, Burgin [facility] [id number] 350.1.13.10 [id number] [id number] [facility] 2022-06-09 15:00:00 2022-06-09 16:48:37 Outpatient R MARITZA WEINSTEIN [facility] [id number] [facility] 2022-06-09 15:00:00 2022-06-09 16:48:37 Office Visit Maritza Weinstein [facility] METAL [facility] [id number] 350.1.13.10 [id number] [id number] [facility] 2022-05-26 15:30:00 2022-05-26 15:30:00 Outpatient R MARITZA WEINSTEIN [facility] [id number] [facility] 2022-05-13 14:30:00 2022-05-13 14:30:00 Outpatient R EVEI ALEJANDRE [facility] [id number] [facility] 2022-05-12 15:00:00 2022-05-12 16:04:50 Office Visit Maritza Weinstein [facility] METAL [facility] .840.114 350.1.13.10 [id number] [id number] [facility] 2022-05-12 15:00:00 2022-05-12 16:04:50 Outpatient R MARITZA WEINSTEIN [facility] [id number] [facility] 2022-05-12 14:30:00 2022-05-12 14:30:00 Outpatient R MARITZA WEINSTEIN [facility] [id number] [facility] 2022-05-12 00:00:00 2022-05-12 00:00:00 Orders Only Doctor Unassigned, Burgin [facility] .840.114 350.1.13.10 [id number] [id number] [facility] 2022-05-03 14:30:00 2022-05-03 15:32:36 Office Visit Maritza Weinstein [facility] METAL DIE [facility] .840.114 350.1.13.10 [id number] [id number] [facility] 2022-05-03 14:30:00 2022-05-03 15:32:36 Outpatient R MARITZA WEINSTEIN [facility] [id number] [facility] 2022-05-03 14:30:00 2022-05-03 14:30:00 Outpatient R BRIANNAKATEMARITZA [facility] [id number] [facility] 2022-05-03 14:30:00 2022-05-03 14:30:00 Outpatient R BRIANNAKATEMARITZA [facility] [id number] [facility] 2022-05-03 13:45:00 2022-05-03 14:19:37 Outpatient R BRIANNAKATEMARITZA [facility] [id number] [facility] 2022-05-03 13:45:00 2022-05-03 14:19:37 Nurse Visit Nurse, Jv Rmchp Exp Cprit Obgyn BriannakateMaritza [facility] METAL DIE FINISHER [facility] MATERNAL & CHILD HEALTH [facility] ..840.114 350.1.13.10 4.2.7.2.686 [id number] [facility] 2022-05-03 14:00:00 2022-05-03 14:00:00 Outpatient R BRIANNAKATEMARITZA [facility] [id number] [facility] 2022-04-29 00:00:00 2022-04-29 00:00:00 Telephone JaredparulkateMaritza [facility] METAL DIE FINISHER [facility] MATERNAL & CHILD HEALTH [facility] ..840.114 350.1.13.10 4.2.7.2.686 [id number] [facility] 2022-04-26 09:45:00 2022-04-26 09:45:00 Outpatient R BRIANNAKATEMARITZA [facility] [id number] [facility] 2022-04-26 09:45:00 2022-04-26 09:45:00 Outpatient R JSMARITZA [facility] [id number] [facility] 2022-04-26 09:15:00 2022-04-26 09:15:00 Outpatient R MARITZA WEINSTEIN [facility] [id number] [facility] 2022-04-26 09:15:00 2022-04-26 09:15:00 Outpatient R MARITZA WEINSTEIN [facility] [id number] [facility] 2022-04-26 09:00:00 2022-04-26 09:00:00 Outpatient R [facility] [id number] [facility] 2022-04-05 09:45:00 2022-04-05 10:40:04 Outpatient R MARITZA WEINSTEIN [facility] [id number] [facility] 2022-04-05 09:45:00 2022-04-05 10:40:04 Routine Visit Maritza Weinstein [facility] METAL DIE FINISHER [facility] MATERNAL & CHILD [facility] 1..840.114 350.1.13.10 4.2.7.2.686 [id number] [facility] 2022-03-11 18:15:00 2022-03-14 17:00:00 Inpatient P ELIZABETH RUSSELL [facility] TASHIA [id number] [facility] 2022-03-11 18:15:00 2022-03-14 17:00:00 Inpatient P DREW ELIZABETH [facility] TASHIA [id number] [facility] 2022-03-11 18:15:00 2022-03-14 17:00:00 Hospital Encounter Elizabeth Russell [facility] 1..840.114 350.1.13.10 4.2.7.2.686 [id number] [facility] 2022-03-12 15:44:00 2022-03-13 09:07:00 Anesthesia Event Alex Moon Sarah [facility] 1..114 350.1.13.10 4.2.7.2.686 [id number] [facility] 2022-03-11 18:15:00 2022-03-11 18:15:00 Inpatient ELIZABETH SUERO [facility] TASHIA [id number] [facility] 2022-03-11 00:00:00 2022-03-11 00:00:00 Telephone Maritza Weinstein [facility] METAL DIE FINISHER [facility] & CHILD [facility] 1..114 350.1.13.10 4.2.7.2.686 [id number] [facility] 2022-03-08 10:30:00 2022-03-08 11:08:01 Outpatient R MARITZA WEINSTEIN [facility] [id number] [facility] 2022-03-08 10:30:00 2022-03-08 11:08:01 Routine Visit Maritza Weinstein [facility] METAL DIE FINISHER [facility] & CHILD [facility] 1.84.114 350.1.13.10 4.2.7.2.686 [id number] [facility] 2022-03-08 10:30:00 2022-03-08 11:08:01 Outpatient R MARITZA WEINSTEIN [facility] [id number] [facility] 2022-03-08 10:30:00 2022-03-08 10:30:00 Outpatient R MARITZA WEINSTEIN [facility] [id number] [facility] 2022-03-08 00:00:00 2022-03-08 00:00:00 Orders Only Doctor Unassigned, Burgin [facility] 1.284.114 350.1.13.10 4.2.7.2.686 [id number] [facility] 2022-03-02 00:00:00 2022-03-02 00:00:00 Telephone BriannakateMaritza Jose Juan [facility] METAL DIE FINISHER [facility] MATERNAL & CHILD [facility] 1.2.840.114 350.1.13.10 4.2.7.2.686 [id number] [facility] 2022-03-01 08:00:00 2022-03-01 08:50:00 Outpatient R JS MARITZA [facility] [id number] [facility] 2022-03-01 08:00:00 2022-03-01 08:50:00 Routine Visit Js Maritza Jose Juan [facility] METAL DIE FINISHER [facility] & CHILD [facility] .2.840.114 350.1.13.10 4.2.7.2.686 [id number] [facility] 2022-03-01 08:00:00 2022-03-01 08:50:00 Outpatient R JOSEPHINE WEINSTEINOLA [facility] [id number] [facility] 2022-03-01 08:00:00 2022-03-01 08:00:00 Outpatient R BRIANNAKATE MARITZA [facility] [id number] [facility] 2022-02-22 10:45:00 2022-02-22 11:42:09 Outpatient R BRIANNAKATE MARITZA [facility] [id number] [facility] 2022-02-22 10:45:00 2022-02-22 11:42:09 Routine Visit JaredparulJosephine stanleyola Jose Juan [facility] METAL DIE FINISHER [facility] & CHILD [facility] .2.840.114 350.1.13.10 4.2.7.2.686 [id number] [facility] 2022-02-22 10:45:00 2022-02-22 10:45:00 Outpatient R JS MARITZA [facility] [id number] [facility] 2022-02-08 08:00:00 2022-02-08 09:11:24 Outpatient R MARITZA WEINSTEIN [facility] [id number] [facility] 2022-02-08 08:00:00 2022-02-08 09:11:24 Routine Visit Maritza Weinstein Jose Juan [facility] METAL DIE FINISHER [facility] & CHILD [facility] 1.2.840.114 350.1.13.10 4.2.7.2.686 [id number] [facility] 2022-01-25 09:45:00 2022-01-25 10:20:19 Outpatient R MARITZA WEINSTEIN [facility] [id number] [facility] 2022-01-25 09:45:00 2022-01-25 10:20:19 Routine Visit JsMaritza Jose Juan [facility] METAL DIE FINISHER [facility] & CHILD [facility] 1.2.840.114 350.1.13.10 4.2.7.2.686 [id number] [facility] 2022-01-11 08:00:00 2022-01-11 09:08:44 Outpatient R MARITZA WEINSTEIN [facility] [id number] [facility] 2022-01-11 08:00:00 2022-01-11 09:08:44 Routine Visit JsMaritza Jose Juan [facility] METAL DIE FINISHER [facility] & CHILD [facility] 1.2.840.114 350.1.13.10 4.2.7.2.686 [id number] [facility] 2021-12-29 00:00:00 2021-12-29 00:00:00 Telephone JaredparulkateMaritza Jose Juan [facility] METAL DIE FINISHER [facility] & CHILD [facility] 1.2.840.114 350.1.13.10 4.2.7.2.686 [id number] [facility] 2021-12-28 12:45:00 2021-12-28 13:28:14 Outpatient R AKINPARLUPE, MARITZA [facility] [id number] [facility] 2021-12-28 12:45:00 2021-12-28 13:28:14 Routine Visit Jarednuvia Maritza C [facility] METAL DIE FINISHER [facility] MATERNAL & CHILD [facility] 1.2.840.114 350.1.13.10 4.2.7.2.686 [id number] [facility] 2021-12-28 12:45:00 2021-12-28 13:28:14 Outpatient R MARITZA WEINSTEIN [facility] [id number] [facility] 2021-12-22 11:00:00 2021-12-22 11:00:00 Outpatient R MARITZA WEINSTEIN [facility] [id number] [facility] 2021-12-22 11:00:00 2021-12-22 11:00:00 Outpatient R MARITZA WEINSTEIN [facility] [id number] [facility] 2021-12-22 00:00:00 2021-12-22 00:00:00 Refill Jaredparulkate Maritza Manzano [facility] METAL DIE FINISHER [facility] & CHILD [facility] 1.2.840.114 350.1.13.10 4.2.7.2.686 [id number] [facility] 2021-12-15 09:00:00 2021-12-15 10:00:00 Coloring Room Worker Visit Ultrasound, Jv-Nixon Gordon [facility] METAL DIE FINISHER [facility] MATERNAL & CHILD [facility] 1..840.114 350.1.13.10 4.2.7.2.686 [id number] [facility] 2021-12-15 09:00:00 2021-12-15 09:00:00 Outpatient P NIXON PERRY [facility] [id number] [facility] 2021-12-15 00:00:00 2021-12-15 00:00:00 Abstract Maritza Weinstein [facility] METAL DIE FINISHER [facility] MATERNAL & CHILD [facility] 1..840.114 350.1.13.10 4.2.7.2.686 [id number] [facility] 2021-12-08 08:00:00 2021-12-08 09:10:04 Outpatient R MARITZA WEINSTEIN [facility] [id number] [facility] 2021-12-08 08:00:00 2021-12-08 09:10:04 Routine Visit Maritza Weinstein [facility] METAL DIE FINISHER [facility] MATERNAL & CHILD [facility] 1..840.114 350.1.13.10 4.2.7.2.686 [id number] [facility] 2021-11-10 09:45:00 2021-11-10 10:37:07 Outpatient R MARITZA WEINSTEIN [facility] [id number] [facility] 2021-11-10 09:45:00 2021-11-10 10:37:07 Routine Visit Maritza Weinstein [facility] METAL DIE FINISHER [facility] & CHILD [facility] 1..840.114 350.1.13.10 4.2.7.2.686 [id number] [facility] 2021-11-08 08:45:00 2021-11-08 09:44:02 Coloring Room Worker Visit Ultrasound, Renetta Andrade [facility] METAL DIE FINISHER [facility] MATERNAL & CHILD [facility] 1..840.114 350.1.13.10 4.2.7.2.686 [id number] [facility] 2021-11-08 08:45:00 2021-11-08 08:45:00 Outpatient Haresh [facility] [id number] [facility] 2021-11-08 08:45:00 2021-11-08 08:45:00 Outpatient P RENETTA MORTON [facility] [id number] [facility] 2021-11-08 00:00:00 2021-11-08 00:00:00 Abstract Maritza Weinstein [facility] METAL DIE FINISHER [facility] & CHILD [facility] 1.840.114 350.1.13.10 4.2.7.2.686 [id number] [facility] 2021-10-13 08:15:00 2021-10-13 09:10:51 Routine Visit Maritza Weinstein Jose Juan [facility] METAL DIE FINISHER [facility] & CHILD [facility] 1.840.114 350.1.13.10 4.2.7.2.686 [id number] [facility] 2021-10-13 08:15:00 2021-10-13 09:10:51 Outpatient R BRIANNAKATE MARITZA [facility] [id number] [facility] 2021-10-13 08:15:00 2021-10-13 08:15:00 Outpatient R BRIANNAKATEMARITZA [facility] [id number] [facility] 2021-10-13 08:15:00 2021-10-13 08:15:00 Outpatient R MARITZA WEINSTEIN [facility] [id number] [facility] 2021-09-29 00:00:00 2021-09-29 00:00:00 Orders Only Doctor Unassigned, Burgin [facility] .84.114 350.1.13.10 4.2.7.2.686 [id number] [facility] 2021-09-28 00:00:00 2021-09-28 00:00:00 Telephone Maritza Weinstein [facility] METAL DIE FINISHER [facility] & CHILD [facility] 1.840.114 350.1.13.10 4.2.7.2.686 [id number] [facility] 2021-09-17 10:30:00 2021-09-17 10:30:00 Out[facility] [id number] [facility] 2021-09-17 10:30:00 2021-09-17 10:30:00 Coloring Room Worker Visit Lab, [facility] Bailey Pedersen [facility] METAL DIE FINISHER [facility] MATERNAL & CHILD [facility] 1.2.840.114 350.1.13.10 4.2.7.2.686 [id number] [facility] 2021-09-17 09:45:00 2021-09-17 10:30:00 Coloring Room [facility] MATERNAL & CHILD [facility] 1.2.840.114 350.1.13.10 4.2.7.2.686 [id number] [facility] 2021-09-17 09:45:00 2021-09-17 09:45:00 Outpatient P [facility] [id number] [facility] 2021-09-17 00:00:00 2021-09-17 00:00:00 Abstract Maritza Weinstein [facility] METAL DIE FINISHER [facility] MATERNAL & CHILD [facility] 1.2.840.114 350.1.13.10 4.2.7.2.686 [id number] [facility] 2021-09-17 00:00:00 2021-09-17 00:00:00 Abstract Maritza Weinstein [facility] METAL DIE FINISHER [facility] & CHILD [facility] 1.2.840.114 350.1.13.10 4.2.7.2.686 [id number] [facility] 2021-09-15 10:45:00 2021-09-15 11:30:06 Outpatient R MARITZA WEINSTEIN [facility] [id number] [facility] 2021-09-15 10:45:00 2021-09-15 11:30:06 Routine Visit Maritza Weinstein [facility] METAL DIE FINISHER [facility] MATERNAL & CHILD HEALTH [facility] 1.840.114 350.1.13.10 4.2.7.2.686 [id number] [facility] 2021-09-15 10:45:00 2021-09-15 10:45:00 Outpatient R MARITZA WEINSTEIN [facility] [id number] [facility] 2021-08-23 00:00:00 2021-08-23 00:00:00 Telephone Maritza Weinstein [facility] METAL DIE FINISHER [facility] CHILD [facility] 1.840.114 350.1.13.10 4.2.7.2.686 [id number] [facility] 2021-08-18 08:30:00 2021-08-18 10:01:03 Outpatient R MARITZA WEINSTEIN [facility] [id number] [facility] 2021-08-18 08:30:00 2021-08-18 10:01:03 Outpatient R MARITZA WEINSTEIN [facility] [id number] [facility] 2021-08-18 08:30:00 2021-08-18 10:01:03 Initial Visit Maritza Weinstein [facility] METAL DIE FINISHER [facility] MATERNAL & CHILD [facility] .840.114 350.1.13.10 4.2.7.2.686 [id number] [facility] 2021-08-18 00:00:00 2021-08-18 00:00:00 Orders Only Doctor Unassigned, Burgin [facility] .84.114 350.1.13.10 4.2.7.2.686 [id number] [facility] 2020-02-10 13:43:29 2020-02-10 18:40:00 Emergency Teagan Lofton [facility] 1.840.114 350.1.13.10 4.2.7.2.686 [id number] [facility] 2020-02-10 13:43:29 2020-02-10 18:40:00 Emergency X Teagan LOFTON [facility] ERT [id number] [facility] Results Test Description Test Time Test Comments Results Result Co mments Source [facility] Notes Date/Time Note Provider Source 2024-07-18 06:53:43 Noted. ENTER FORM Taty Patterson LVN [facility] 2024-07-17 16:58:33 Patient missed appointment for breast pain. Attempted to contact my phone and number is not in service. ENTER FORM Madison Russell [facility]
[2025-04-26] MEDS ORDERED: NA CHLORIDE 0.9% 1,000 ML ONE (09:17)
[2025-04-26] MEDS ORDERED: KETOROLAC 30 MG/ML INJ ONE (09:43)
[2025-04-26 09:45] LABS: Absolute Lymphocytes (CBC) 1.8 K/uL (0.7-4.9); Hematocrit 31.2 % (36.0-45.0); Hemoglobin 9.4 g/dL (12.0-15.0); MCH 20.6 pg (27.0-35.0); MCHC 30.3 g/dL (32.0-36.0); MCV 67.9 fL (80-100); MPV 9.4 fL (7.6-11.3); Nucleated RBC Absolute Count 0.0 (0-0); Nucleated Red Blood Cells % 0.1 % (0-0); RBC Red Blood Cell Count 4.59 M/uL (3.86-4.86); White Blood Count 4.40 thou/uL (4.3-10.9)
[2025-04-26 09:47] LABS: Urine Crystals Unidentified Few /HPF (None Seen); Urine Culture Reflex Order REFLEXED; Urine Microscopic Reflex YN ORDER UMIC; Urine WBC Clump Rare /HPF (None Seen); Urine Yeast (Budding) Occasional /HPF (None Seen)
[2025-04-26 10:02] LABS: Albumin 3.7 g/dL (3.4-5.0); Albumin/Globulin Ratio 1.0 (1.1-1.8); Alkaline Phosphatase 66 U/L (45-117); Anion Gap 9.8 mEq/L (5.0-15.0); BUN Blood Urea Nitrogen 14 mg/dL (7-18); Globulin 3.7 g/dL (2.3-3.5); Glucose Level 60 mg/dL (74-106); Lipase 30 U/L (13-75); Potassium 3.8 mEq/L (3.5-5.1)
[2025-04-26 10:12] LABS: ALT/SGPT < 14 U/L (13-56); AST/SGOT < 10 U/L (15-37)
[2025-04-26] MEDS ORDERED: CEFTRIAXONE 1000 MG/VIAL ONE (10:24)
[2025-04-26] MEDS ORDERED: NA CHLORIDE 0.9% 50 ML ONE (10:24)
[2025-04-26 10:29] LABS: Anisocytosis 1+; Blood Morphology Comment NOTED (NOT SEEN); Microcytosis 1+; White Blood Cell Scan OK (OK)
--- NOTE | 2025-04-26 10:36 | RAD REPORT ---
EXAM: Chest Single View HISTORY: 35 years Female Upper back pain COMPARISON: 08/25/2013 FINDINGS: LUNGS/PLEURA: The lungs are clear. No pleural effusions or pneumothorax. No pulmonary edema. CARDIAC/MEDIASTINUM: The cardiac silhouette is within normal limits. UPPER ABDOMEN: No significant abnormality. BONES: No acute abnormality. LINES/TUBES/OTHER: N/A IMPRESSION: No evidence of acute cardiopulmonary disease.
--- NOTE | 2025-04-26 11:21 | RAD REPORT ---
EXAMINATION: Abdomen Pelvis W Contrast CLINICAL INDICATION: Female, 35 years old.ABD PAIN TECHNIQUE: CT abdomen and pelvis was performed, after the administration of IV contrast, as per [facility] protocol. Axial, sagittal and coronal reconstructions were obtained. One or more of the following dose reduction techniques were used: Automated exposure control, adjustment of the mA and/o r kV according to patient size, and/or iterative reconstruction. Unless otherwise specified, incidental findings do not require dedicated imaging follow-up. [id number]. COMPARISON: 06/21/2023 FINDINGS: LOWER CHEST: No acute process identified.No significant pericardial effusion. UPPER GI: Partial gastrectomy LIVER: No significant focal abnormality. GALLBLADDER/BILE DUCTS: Cholecystectomy.? PANCREAS: No mass, ductal dilation, or tootie-pancreatic fluid. SPLEEN: Unremarkable. ADRENALS: No adrenal masses. KIDNEYS AND URETERS: No hydronephrosis.No suspicious renal mass. ABDOMINAL AORTA AND OTHER VESSELS: Normal caliber aorta and IVC. PERITONEUM: No abnormal free fluid. No free air. LYMPH NODES: No pathologic lymphadenopathy. ABDOMINAL WALL: Unremarkable SMALL BOWEL/COLON: Borderline thickening of the terminal ileum and ascending colon. No bowel obstruct ion. Normal appendix. URINARY BLADDER: Underdistended but grossly unremarkable. REPRODUCTIVE ORGANS: No pathologic process. MUSCULOSKELETAL: No acute or suspicious osseous abnormality. ADDITIONAL FINDINGS: None. IMPRESSION: Question mild thickening of the terminal ileum and ascending colon which could reflect a mild enteroc olitis.
--- NOTE | 2025-04-26 11:23 | ER ---
Nurse's Notes [facility] Jose Name: Lauren Rizo Age: 35 yrs Sex: Female : 1990 Arrival Date: 04/26/2025 Time: 09:06 Bed 14 Private MD: Diagnosis: UTI/ Urinary tract infection, site not specified Presentation: 04/26 09:17 Chief complaint: Patient states: Lower abdominal pain and right sided flank pain that cm10 radiates to upper back onset 2 days ago. pt denies any urinary symptoms. Coronavirus screen: Client denies travel out of the [place] in the last 14 days. Ebola Screen: Patient denies travel to an Ebola-affected area in the 21 days before illness onset. Initial Sepsis Screen: Does the patient meet any 2 criteria? No. Patient's initial sepsis screen is negative. Does the patient have a suspected source of infection? No. Patient's initial sepsis screen is negative. Risk Assessment: Do you want to hurt yourself or someone else? Patient reports no desire to harm self or others. Onset of symptoms was April 26, 2025. 09:17 Method Of Arrival: Ambulatory cm10 09:17 Acuity: CHRIS 3 cm10 Triage Assessment: 09:41 General: Appears in no apparent distress. uncomfortable, Behavior is calm, cooperative. cm10 Pain: Complains of pain in right flank, right lower quadrant and left lower quadrant Pain currently is 5 out of 10 on a pain scale. Pain began 2-3 days ago. Neuro: No deficits noted. Level of Consciousness is awake, alert, obeys commands, Oriented to person, place, time, situation, Appropriate for age. Respiratory: No deficits noted. Airway is patent Respiratory effort is even, unlabored, Respiratory pattern is regular, symmetrical. GI: Bowel sounds present X 4 quads. Abd is soft X 4 quads Abdomen is tender to palpation in right lower quadrant and left lower quadrant Reports lower abdominal pain. Musculoskeletal: Circulation, motion, and sensation intact. Range of motion: intact in all extremities. 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 - Infectious Disease History:: Denies. - Social history:: Smoking status: Patient denies any tobacco usage or history of. Screenin:41 [facility] ED Fall Risk Assessment (Adult) History of falling in the last 3 months, cm10 including since admission No falls in past 3 months (0 pts) Confusion or Disorientation No (0 pts) Intoxicated or Sedated No (0 pts) Impaired Gait No (0 pts) Mobility Assist Device Used No (0 pt) Altered Elimination No (0 pt) Score/Fall Risk Level 0 - 2 = Low Risk Oriented to surroundings, Maintained a safe environment, Hourly rounding (assess needs \T\ fall precautionary measures) done. Abuse screen: Denies threats or abuse. Denies injuries from another. Nutritional screening: No deficits noted. Tuberculosis screening: No symptoms or risk factors identified. Assessment: 10:29 Reassessment: Patient appears in no apparent distress at this time. Patient and/or cm10 family updated on plan of care and expected duration. Pain level reassessed. Patient is alert, oriented x 3, equal unlabored respirations, skin warm/dry/pink. 11:30 Reassessment: Patient appears in no apparent distress at this time. Patient and/or cm10 family updated on plan of care and expected duration. Pain level reassessed. Patient is alert, oriented x 3, equal unlabored respirations, skin warm/dry/pink. Vital Signs: 09:17 BP 105 / 63; Pulse 60; Resp 16; Temp 97.8; Pulse Ox 100% on R/A; Weight 68.04 kg; cm10 Height 5 ft. 0 in. ; Pain 5/10; 10:30 BP 103 / 64; Pulse 60; Resp 16; Pulse Ox 100% on R/A; cm10 10:30 BP 96 / 72; Pulse 59; Resp 16; Pulse Ox 100% on R/A; cm10 11:28 BP 100 / 71; Pulse 58; Resp 16; Pulse Ox 100% ; cm10 09:17 Body Mass Index 29.29 (68.04 kg, 152.4 cm) cm10 09:17 Pain Scale: Adult cm10 ED Course: 09:10 Patient arrived in ED. ts1 09:11 [facility]C [facility] dr5 09:11 Rick Hall MD is Attending Physician. dr5 09:17 Romaine, Lupe, RN is Primary Nurse. cm10 09:20 Triage completed. cm10 09:21 Arm band placed on right wrist. Patient placed in an exam room, on a stretcher. cm10 09:39 Test, Urine Sent. cm10 09:39 UA Rfx Taco Cult if indicated Sent. cm10 09:39 CBC with Diff Sent. cm10 09:39 CMP Sent. cm10 09:39 Lipase Sent. cm10 09:40 Patient has correct armband on for positive identification. Placed in gown. Bed in low cm10 position. Call light in reach. Side rails up X 1. Pulse ox on. NIBP on. 09:40 Initial lab(s) drawn, by me, sent to lab. Urine collected: clean catch specimen, cm10 cloudy. Inserted saline lock: 20 gauge in right antecubital area, using aseptic technique. Blood collected. Flushed with 10 mL NS. 10:30 Chest Single View XRAY In Process Unspecified. EDMS 10:[address] via wheelchair. cm10 10:52 CT Abd/Pelvis - IV Contrast Only In Process Unspecified. EDMS 11:36 Provided Education on: Follow-up instructions. cm10 11:36 No provider procedures requiring assistance completed. IV discontinued, intact, cm10 bleeding controlled, No redness/swelling at site. Pressure dressing applied. Administered Medications: 09:25 Not Given (Changed to Toradol): morphineor iv 4 mg IVP once over 4 mins dr5 09:39 Drug: NS 0.9% IV 1000 ml IV at 1 bolus Per protocol; to be given as a bolus over 60 cm10 minutes Route: IV; Rate: 1 bolus; Site: right antecubital; 10:41 Follow up: Response: No adverse reaction; IV Status: Completed infusion; IV Intake: cm10 1000ml 09:53 Not Given (Patient Refused): ondansetron 4 mg IVP once; over 2 minutes cm10 09:53 Drug: Ketorolac IVP 15 mg IVP once Route: IVP; Site: right antecubital; cm10 10:26 Follow up: Response: No adverse reaction; Pain is decreased cm10 10:28 Drug: Rocephin IV 1 grams IV at per protocol once; Given slow IV push per pharmacy cm10 instructions Route: IV; Rate: per protocol; Site: right antecubital; 10:41 Follow up: Response: No adverse reaction; IV Status: Completed infusion; IV Intake: [id number] Medication: 09:41 VIS not applicable for this client. cm10 Intake: 10:41 IV: 50ml; Total: 50ml. cm10 10:41 IV: 1000ml; Total: 1050ml. cm10 Outcome: 11:22 Discharge ordered by . dr5 11:36 Discharged to home ambulatory, cm10 11:36 Condition: good 11:36 Discharge instructions given to patient, Instructed on discharge instructions, follow up and referral plans. medication usage, Demonstrated understanding of instructions, follow-up care, medications, Prescriptions given X 3, 11:36 Patient left the ED. cm10 Signatures: Dispatcher [employer] EDMS Jaye Royal PAS PAS ts1 Lupe Gavin RN RN cm10 Jose Antonio Levy, PIPING ENGINEER-C PIPING ENGINEER-Cdr5
--- NOTE | 2025-04-26 11:23 | EDPHYS ---
Physician Documentation [facility] Roxanne Name: Lauren Rizo Age: 35 yrs Sex: Female : 1990 Arrival Date: 04/26/2025 Time: 09:06 Bed 14 Private MD: ED Physician Rick Hall HPI: 04/26 09:19 This 35 yrs old Female presents to ER via Unassigned with complaints of dr5 Abdominal Pain, Back Pain. 09:19 The patient presents with abdominal pain in the lower abdomen, Lower abdomen and right dr5 flank. Onset: The symptoms/episode began/occurred 2 day(s) ago. Patient is a 35-year-old female with history of gastric sleeve and cholecystectomy coming in with lower abdominal pain and right flank pain has been going on for the past 2 days. Patient also reports that she has upper back pain. Patient denies chest pain, shortness of breath, upper abdominal pain, nausea, fever, vomiting, diarrhea, dysuria, or vaginal bleeding or discharge.. 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 - Infectious Disease History:: Denies. - Social history:: Smoking status: Patient denies any tobacco usage or history of. ROS: 09:19 Constitutional: as per hpi dr5 Exam: 09:19 Constitutional: This is a well developed, well nourished patient who is awake, alert, dr5 and in no acute distress. Head/Face: Normocephalic, atraumatic. Eyes: Pupils equal round and reactive to light, extra-ocular motions intact. Lids and lashes normal. Conjunctiva and sclera are non-icteric and not injected. Cornea within normal limits. Periorbital areas with no swelling, redness, or edema. Neck: Trachea midline, no thyromegaly or masses palpated, and no cervical lymphadenopathy. Supple, full range of motion without nuchal rigidity, or vertebral point tenderness. No Meningismus. Chest/axilla: Normal chest wall appearance and motion. Nontender with no deformity. No lesions are appreciated. Cardiovascular: Regular rate and rhythm with a normal S1 and S2. Normal PMI, no JVD. No pulse deficits. Respiratory: Lungs have equal breath sounds bilaterally, clear to auscultation. No rales, rhonchi or wheezes noted. No increased work of breathing, no retractions or nasal flaring. Abdomen/GI: Soft, mild tenderness noted to palpation over suprapubic area Back: No spinal tenderness. No costovertebral tenderness. Full range of motion. Skin: Warm, dry with normal turgor. Normal color with no rashes, no lesions, and no evidence of cellulitis. MS/ Extremity: Pulses equal, no cyanosis. Neurovascular intact. Full, normal range of motion. Neuro: Awake and alert, GCS 15, oriented to person, place, time, and situation. Cranial nerves II-XII grossly intact. Motor strength 5/5 in all extremities. Sensory grossly intact. Cerebellar exam normal. Normal gait. Vital Signs: 09:17 BP 105 / 63; Pulse 60; Resp 16; Temp 97.8; Pulse Ox 100% on R/A; Weight 68.04 kg; cm10 Height 5 ft. 0 in. ; Pain 5/10; 10:30 BP 103 / 64; Pulse 60; Resp 16; Pulse Ox 100% on R/A; cm10 10:30 BP 96 / 72; Pulse 59; Resp 16; Pulse Ox 100% on R/A; cm10 11:28 BP 100 / 71; Pulse 58; Resp 16; Pulse Ox 100% ; cm10 09:17 Body Mass Index 29.29 (68.04 kg, 152.4 cm) cm10 09:17 Pain Scale: Adult cm10 MDM: 09:11 Medical Screening Exam initiated dr5 11:23 Differential diagnosis: appendicitis, diverticulitis, gastritis, gastroesophageal dr5 reflux disease, urinary tract infection, Gastroenteritis, electrolyte abnormality, anemia, pyonephritis. Data reviewed: vital signs, nurses notes, lab test result(s), CBC, white blood cell count, hemoglobin, hematocrit, platelets, electrolytes, sodium, potassium, chloride, serum bicarbonate, BUN, creatinine, serum glucose, urinalysis, bacteruria, UPT: negative radiologic studies, CT scan. Consideration of Admission/Observation Escalation of care including admission/observation considered. Admission considered patient found to have obstructing kidney stone pyelonephritis with fever. I considered the following discharge prescriptions or medication management in the emergency department I discussed and recommended Over The Counter medications, Medications were administered in the Emergency Department. See MAR. Care significantly affected by the following Social Determinants of Health: Poor access to healthcare and/or lack of insurance, Poor access to transportation, Problems related to employment. Counseling: I had a detailed discussion with the patient and/or guardian regarding the historical points, exam findings, and any diagnostic results supporting the discharge/admit diagnosis, the presence of at least one elevated blood pressure reading (>120/80) during this emergency department visit, lab results, radiology results, the need for outpatient follow up, for definitive care, a family practitioner, to return to the emergency department if symptoms worsen or persist or if there are any questions or concerns that arise at home. Medication response: Rocephin, Toradol, normal saline. Response to treatment: the patient's symptoms have resolved after treatment, the patient's condition has returned to base line, the patient is now symptom free. Special discussion: I discussed with the patient/guardian in detail that at this point there is no indication for admission to the hospital. It is understood, however, that if the symptoms persist or worsen the patient needs to return immediately for re-evaluation. Based on the history and exam findings, there is no indication for further emergent testing or inpatient evaluation. I discussed with the patient/guardian the need to see the primary care provider for further evaluation of the symptoms. ED course: Labs and CT scan were printed and given to patient take with her to primary care doctor. Explained the need for antibiotics, antifungal for yeast infection, and iron for anemia. Recommended patient follow-up with This next week for further management of anemia. Also explained gastroenteritis and need for increased hydration. All questions answered. Strict ER precautions given.. 04/26 09:18 Order name: CBC with Diff; Complete Time: 10:40 04/26 10:49 Interpretation: Abnormal: HGB 9.4; HCT 31.2; MCV 67.9; MCH 20.6; MCHC 30.3; RDW 17.1. dr5 04/26 09:18 Order name: CMP; Complete Time: 10:14 04/26 09:18 Order name: Lipase; Complete Time: 10:14 04/26 09:18 Order name: UA Rfx Taco Cult if indicated; Complete Time: 10:14 04/26 10:50 Interpretation: UESTR 500; UWBC 10-20; URBC 11-20; BYST Occasional. dr5 04/26 09:18 Order name: Test, Urine; Complete Time: 09:53 dr5 04/26 10:09 Order name: CBC Smear Scan; Complete Time: 10:40 EDMS 04/26 10:19 Order name: Urine Culture EDMS 04/26 09:19 Order name: Chest Single View XRAY; Complete Time: 10:40 dr5 04/26 09:53 Order name: CT Abd/Pelvis - IV Contrast Only; Complete Time: 11:21 dr5 04/26 09:18 Order name: IV Saline Lock; Complete Time: 09:39 dr5 04/26 09:18 Order name: Labs collected and sent; Complete Time: 09:39 dr5 Administered Medications: 09:25 Not Given (Changed to Toradol): morphineor iv 4 mg IVP once over 4 mins dr5 09:39 Drug: NS 0.9% IV 1000 ml IV at 1 bolus Per protocol; to be given as a bolus over 60 cm10 minutes Route: IV; Rate: 1 bolus; Site: right antecubital; 10:41 Follow up: Response: No adverse reaction; IV Status: Completed infusion; IV Intake: cm10 1000ml 09:53 Not Given (Patient Refused): ondansetron 4 mg IVP once; over 2 minutes cm10 09:53 Drug: Ketorolac IVP 15 mg IVP once Route: IVP; Site: right antecubital; cm10 10:26 Follow up: Response: No adverse reaction; Pain is decreased cm10 10:28 Drug: Rocephin IV 1 grams IV at per protocol once; Given slow IV push per pharmacy cm10 instructions Route: IV; Rate: per protocol; Site: right antecubital; 10:41 Follow up: Response: No adverse reaction; IV Status: Completed infusion; IV Intake: [id number] Disposition: 16:13 Co-signature as Attending Physician, Rick Hall MD I reviewed the patient's care rn provided by the Advanced Practice Provider and agree with the diagnosis and treatment plan. Disposition Summary: 04/26/25 11:22 Discharge Ordered Notes: Location: Home dr5 Condition: Stable dr5 Diagnosis - UTI/ Urinary tract infection, site not specified dr5 Followup: dr5 - With: Emergency Department - When: As needed - Reason: Worsening of condition Followup: dr5 - With: Private Physician - When: 1 - 2 days - Reason: Recheck today's complaints, Continuance of care, Re-evaluation by your physician Discharge Instructions: - Discharge Summary Sheet dr5 - Anemia dr5 - Vaginal Yeast Infection, Adult dr5 - Urinary Tract Infection, Adult, [id number] dr5 Forms: - Medication Reconciliation Form dr5 - Antibiotic Education dr5 - Patient Portal Instructions dr5 - Leadership Thank You Letter dr5 Prescriptions: - Cephalexin 500 mg Oral Capsule - take 1 capsule ORAL route every 12 hours for 10 days; 20 capsule; Refills: 0, dr5 Product Selection Permitted - Ferrous Sulfate 325 mg (65 mg Iron) Oral tablet - take 1 tablet ORAL route every other day; 30 tablet; Refills: 0, Product dr5 Selection Permitted - Fluconazole 150 mg Oral tablet - take 1 tablet ORAL route one time; 1 tablet; Refills: 0, Product Selection dr5 Permitted Signatures: Dispatcher [employer] EDMS Rick Hall MD MD rn Martinez, Clarissa, RN RN cm10 Jose Antonio Levy, REPLANTING MACHINE CREWMAN-C REPLANTING MACHINE CREWMAN-Cdr5 Corrections: (The following items were deleted from the chart) 09:54 09:54 Abdomen Pelvis W Con+CT.RAD.BRZ ordered. EDMS EDMS 10:50 10:50 UESTR 500; UWBC 10-20; URBC 11-20. dr5 dr5
[2025-04-26 11:44] VITALS: TEMP 97.8; O2SAT 100
[2025-04-26 11:48] VITALS: BP 100/71
== END 2025-04-26 11:36 | disposition home or self-care (01) ==
LOC: ER 09:06
DX: N39.0 Urinary tract infection, site not specified (principal)
CPT/HCPCS: 96361; 87088; 85025; 81001; 87086; 36415; 81025; 83690; 80053; 74177; 71045; 96375; 96374; 99285; Q9967; J7030; J0696